=== PATIENT | male | born 1935 | race Caucasian/White ===

== ENCOUNTER 2019-10-15 13:13 | Outpatient (CLI) | payer MEDICARE, OTHER, SELFPAY ==
[2019-10-15 14:39] LABS: Prostate Specific Antigen 1.51 ng/mL (0-4)
[2019-10-15 14:52] LABS: Alanine Aminotransferase 20 U/L (0-41); Albumin Level 4.2 g/dL (3.5-5.2); Alkaline Phosphatase 63 IU/L (40-130); Anion Gap 15.8 (5-19); Aspartate Amino Transferase 21 U/L (0-40); Blood Urea Nitrogen 20 mg/dL (8-23); Calcium 9.8 mg/dL (8.5-10.5); Carbon Dioxide 25 mmol/L (22-29); Chloride 101 mmol/L (98-107); Globulin 3.3 g/dL (1.3-4.6); Glucose 125 mg/dL (65-115); Potassium 4.8 mmol/L (3.5-5.1); Sodium 137 mmol/L (136-145); Total Bilirubin 0.5 mg/dL (0.15-1.2); Total Protein 7.5 g/dL (6.6-8.7)
[2019-10-15 15:33] LABS: Testosterone Total 2.5 ng/dL (193-740)
== END 2019-10-15 13:14 | disposition home or self-care (01) ==
LOC: ONCMED 13:19
PROVIDERS: Family Provider Family Medicine; PCP Family Medicine; Visit Provider Internal Medicine Hematology & Oncology
DX: C61 Malignant neoplasm of prostate (principal); C79.51 Secondary malignant neoplasm of bone; Z92.3 Personal history of irradiation
CPT/HCPCS: 80053; 84153; 84403

== ENCOUNTER 2019-10-20 13:41 | Outpatient (CLI) | payer MEDICARE, OTHER, SELFPAY ==
--- NOTE | 2019-10-20 14:42 | ONC FU_ITS ---
Dr. 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 He had known adenocarcinoma of the prostate, [place] score 7 (4+3), initially stage III with invasion of seminal vesicles by direct extension. He underwent prostatectomy and lymphadenectomy at [facility] in March of 2004. His PSA was gradually rising; 0.38 in July of 2007, 2.03 in April of 2006, 6.11 in January of 2012, and 26.68 in July of 2013. Hormonal therapy was considered, but not initiated. The patient presented with significant lower back pain in the fall of 2012. His CT of the spine on 09/14/13 revealed destructive process of the L1 vertebral body with a lytic lesion of approximately 14 mm. He has no associated neurologic deficit. He was first seen by Dr. Miguel on 09/24/2013. PSA measured 44.4. An MRI of the lumbar spine on 09/25/2013 showed no evidence of central canal or neuroforaminal compromise. His bone scan revealed metastatic disease that included thoracic and lumbar spine, sacrum, left proximal humerus, right clavicle, right fifth rib and right temporal bone. A biopsy of the L1 vertebral body on 10/16/2013 confirmed prostatic adenocarcinoma. The patient began on treatment with Zoladex and Casodex. He had a good biochemical response. Restaging bone scan on 07/19/2014 showed improvement in the bone lesions. MRI of the L-spine on 07/21/2014 showed possible tumor extension in L1-L2 region but with no invasion into the thecal sac. He had exacerbation of his back pain, for which he received palliative radiation T10-L2 in January 2015. He continued treatment with the Zoladex and Casodex. In the Prolia every 6 months His other medical illnesses include hypertension, hyperlipidemia, type II diabetes, COPD, obstructive sleep apnea, and degenerative arthritis. He also has B12 deficiency. He had previously smoked 1-1/2 packs of cigarettes daily for 40 years. He quit smoking in 2009 Came for follow-up, denies any specific complaints, no nausea vomiting no fever no chills no new bony pains, occasionally hot flashes otherwise tolerating Zoladex/Casodex well Medications: Aspirin Low Dose 1 (81 mg) Tablet Oral daily, Citracal +D3 Tablet, chewable Oral daily, fentaNYL 1 Patch(es) (of 50 mcg/hr) Patch 72 Hr Transdermal q 72 hours, Fiber 1 (625 mg) Tablet Oral daily PRN, Gabapentin 1 Capsule (of 300 mg) Oral daily, Imdur 0.5 (30 mg) Tablet SR 24 HR Oral every am, Movantik 1 Tablet (of 25 mg) Oral daily, OxyCODONE HCl 1 Tablet (of 10 mg) Tablet Oral q 4 to 6 hours PRN, ProAir RespiClick Aerosol Powder, Breath Activated Inhalation, Tamsulosin HCl 1 Capsule (of 0.4 mg) Capsule Oral daily, Vitamin D3 1 (1000 Units) Capsule Oral daily Allergies: No Known Allergies. Review of Systems: Constitutional - Appetite is good and weight is stable. No fever, chills, hot flashes, or night sweats. Energy level is fair, ENMT - No sinus congestion/drainage. No mouth sores. No sore throat or difficulty swallowing, Hematologic/Lymphatic - Patient bruises easily, no abnormal bleeding, Respiratory - Shortness of breath with exertion. No cough. No pleuritic pain or hemoptysis, Cardiovascular - No angina pain. No palpitations, Gastrointestinal - No nausea or vomiting. No heartburn or acid reflux. No diarrhea or constipation. No blood in the stool or black stools, Genitourinary (M) - No dysuria or hematuria. Patient has urinary frequency. No urgency or incontinence, Musculoskeletal - Chronic back and knee pain, Integumentary - No new rashes or ulcerations, Neurologic - No headache or dizziness. No numbness/paresthesias or other focal neurologic symptoms, Psychiatric - No anxiety or depression. No insomnia. Vital Signs: Performed on Oct 20, 2019 14:12 Height - 68.00 in Weight - 247.8 lbs (LOW) BSA - 2.24 sq.m BMI - 37.68 (HIGH) Temperature - 97.6 F (LOW) Pulse - 82 /min Respiration - 18 /min BP - 143/78 mm(hg) (HIGH) O2 Sat - 95 % (LOW) Pain - 4 Fatigue - 6 Performance Status: 2 - Ambulatory/capable of all self-care, unable to perform any work activities. Up and about more than 50% of waking hours. (ECOG) Physical Examination: ENMT - No oral exudates, ulcers, masses, thrush or mucositis. Oropharynx clear. Tongue normal, Respiratory - Lungs are clear to auscultation without rhonchi or wheezing, Cardiovascular - Regular rate and rhythm of heart, Abdomen - Non-tender, non-distended, Good bowel sounds. No guarding or rebound tenderness. No pulsatile masses, Extremities - no edema. Lab/Imaging: Most recent lab results are not available for this patient. Impression: 1. Patient with Gail score 7 prostatic adenocarcinoma, stage III at initial diagnosis/prostatectomy in March 2004. He subsequently had progression to stage IV with biopsy proven metastatic involvement in the bone. 2. In December 2013 he began Zoladex together with Casodex 50 mg daily. He has a good biochemical response. Bone scan in July 2014 showed improvement. 3. He received palliative radiation treatment to T10- L2 in January of 2015. PSA shashank at 0.08- 0.09. His other medical illnesses include: 4. Hypertension. 5. Hyperlipidemia. 6. Type II diabetes. 7. COPD. 8. Obstructive sleep apnea. 9. Degenerative arthritis. Patient had a slight increase in the PSA level beginning in January 2016. The significance has been uncertain, as his clinical status has remained stable, and his subsequent PSA levels have stabilized. He also has had vitamin D deficiency, for which he is on replacement therapy, and has been receiving Prolia injections for maintenance of bone health. Overall, he appears to be doing pretty well with no evidence of progression of the prostate cancer. Plan: Discussed with patient regarding his labs CMP within normal limits PSA 1.51 compared to 3.29 on 07/15/2019 Clinically, patient is doing well, tolerating ADT with Casodex/Zoladex well but with expected side effects e.g. occasionally hot flashes. We'll proceed with next 3 monthly dose of Zoladex today and then patient return to clinic in 3 months with PSA. Signed By: Rhett Hennessy M.D. <<Signature on File>>
[2019-10-20] MEDS: denosumab 60 mg SDV SUBCUT (14:56)
[2019-10-20] MEDS: goserelin acetate 10.8 mg Implant SUBCUT (14:57)
== END 2019-10-20 13:42 | disposition home or self-care (01) ==
LOC: ONCMED 13:44
PROVIDERS: Family Provider Family Medicine; PCP Family Medicine; Visit Provider Internal Medicine Hematology & Oncology
DX: C61 Malignant neoplasm of prostate (principal); C79.51 Secondary malignant neoplasm of bone; I10 Essential (primary) hypertension; E78.5 Hyperlipidemia, unspecified; E11.9 Type 2 diabetes mellitus without complications; J44.9 Chronic obstructive pulmonary disease, unspecified; G47.33 Obstructive sleep apnea (adult) (pediatric); M19.90 Unspecified osteoarthritis, unspecified site; E53.8 Deficiency of other specified B group vitamins; Z79.818 Long term (current) use of other agents affecting estrogen receptors and estrogen levels; Z79.899 Other long term (current) drug therapy; Z79.82 Long term (current) use of aspirin; Z79.891 Long term (current) use of opiate analgesic; Z90.79 Acquired absence of other genital organ(s); Z92.3 Personal history of irradiation; Z87.891 Personal history of nicotine dependence
CPT/HCPCS: 96372; 96402; 99214; J0897; J9202

== ENCOUNTER 2020-01-11 15:05 | Outpatient (CLI) | payer MEDICARE, OTHER, SELFPAY ==
[2020-01-12 02:00] LABS: Prostate Specific Antigen 1.64 ng/mL (0-4)
== END 2020-01-11 15:06 | disposition home or self-care (01) ==
LOC: ONCMED 16:41
PROVIDERS: PCP Family Medicine; Visit Provider Internal Medicine Hematology & Oncology
DX: C61 Malignant neoplasm of prostate (principal); C79.51 Secondary malignant neoplasm of bone
CPT/HCPCS: 84153

== ENCOUNTER 2020-01-18 14:32 | Outpatient (CLI) | payer MEDICARE, OTHER, SELFPAY ==
[2020-01-18] MEDS: lidocaine 1% INJ 20 mL INJECTION (15:43)
[2020-01-18] MEDS: goserelin acetate 10.8 mg Implant IM (15:48)
--- NOTE | 2020-01-18 17:07 | ONC FU_ITS ---
Dr. 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 He had known adenocarcinoma of the prostate, Ha[place] score 7 (4+3), initially stage III with invasion of seminal vesicles by direct extension. He underwent prostatectomy and lymphadenectomy at [facility] in March of 2004. His PSA was gradually rising; 0.38 in July of 2007, 2.03 in April of 2006, 6.11 in January of 2012, and 26.68 in July of 2013. Hormonal therapy was considered, but not initiated. The patient presented with significant lower back pain in the fall of 2012. His CT of the spine on 09/14/13 revealed destructive process of the L1 vertebral body with a lytic lesion of approximately 14 mm. He has no associated neurologic deficit. He was first seen by Dr. Miguel on 09/24/2013. PSA measured 44.4. An MRI of the lumbar spine on 09/25/2013 showed no evidence of central canal or neuroforaminal compromise. His bone scan revealed metastatic disease that included thoracic and lumbar spine, sacrum, left proximal humerus, right clavicle, right fifth rib and right temporal bone. A biopsy of the L1 vertebral body on 10/16/2013 confirmed prostatic adenocarcinoma. The patient began on treatment with Zoladex and Casodex. He had a good biochemical response. Restaging bone scan on 07/19/2014 showed improvement in the bone lesions. MRI of the L-spine on 07/21/2014 showed possible tumor extension in L1-L2 region but with no invasion into the thecal sac. He had exacerbation of his back pain, for which he received palliative radiation T10-L2 in January 2015. He continued treatment with the Zoladex and Casodex. In the Prolia every 6 months His other medical illnesses include hypertension, hyperlipidemia, type II diabetes, COPD, obstructive sleep apnea, and degenerative arthritis. He also has B12 deficiency. He had previously smoked 1-1/2 packs of cigarettes daily for 40 years. He quit smoking in 2009 Came for follow-up, denies any specific complaints except generalized weakness and fatigue and occasionally hot flashes, no fever or chills, no nausea or vomiting, no diarrhea constipation, tolerating Zoladex/Casodex well Medications: Aspirin Low Dose 1 (81 mg) Tablet Oral daily, Benicar 1 Tablet (of 20 mg) Oral daily, Bicalutamide 1 Tablet (of 50 mg) Oral daily, Citracal +D3 Tablet, chewable Oral daily, fentaNYL 1 Patch(es) (of 50 mcg/hr) Patch 72 Hr Transdermal q 72 hours, Fiber 1 (625 mg) Tablet Oral daily PRN, Gabapentin 1 Capsule (of 300 mg) Oral daily, Imdur 0.5 (30 mg) Tablet SR 24 HR Oral every am, Movantik 1 Tablet (of 25 mg) Oral daily, Mucus Relief 1 Tablet (of 600 mg) Tablet SR 12 HR Oral daily, OxyCODONE HCl 1 Tablet (of 10 mg) Tablet Oral q 4 to 6 hours PRN, predniSONE 1 Tablet (of 10 mg) Oral daily, ProAir RespiClick Aerosol Powder, Breath Activated Inhalation, Tamsulosin HCl 1 Capsule (of 0.4 mg) Capsule Oral daily, Vitamin D3 1 (1000 Units) Capsule Oral daily, Zoladex Subcutaneous Allergies: No Known Allergies. Review of Systems: Constitutional - Appetite is good and weight is stable. No fever, chills, hot flashes, or night sweats. Energy level is fair, ENMT - No sinus congestion/drainage. No mouth sores. No sore throat or difficulty swallowing, Hematologic/Lymphatic - Patient bruises easily, no abnormal bleeding, Respiratory - Shortness of breath with exertion. No cough. No pleuritic pain or hemoptysis, Cardiovascular - No angina pain. No palpitations, Gastrointestinal - No nausea or vomiting. No heartburn or acid reflux. No diarrhea or constipation. No blood in the stool or black stools, Genitourinary (M) - No dysuria or hematuria. Patient has urinary frequency. No urgency or incontinence, Musculoskeletal - Chronic back and knee pain, Integumentary - No new rashes or ulcerations, Neurologic - No headache or dizziness. No numbness/paresthesias or other focal neurologic symptoms, Psychiatric - No anxiety or depression. No insomnia. Vital Signs: Performed on January 18, 2020 15:28 Height - 68.00 in Weight - 258.6 lbs (HIGH) BSA - 2.28 sq.m BMI - 39.32 (HIGH) Temperature - 97.5 F (LOW) Pulse - 89 /min Respiration - 19 /min BP - 188/100 mm(hg) (HIGH) O2 Sat - 92 % (LOW) Pain - 3 Performance Status: 2 - Ambulatory/capable of all self-care, unable to perform any work activities. Up and about more than 50% of waking hours. (ECOG) Physical Examination: ENMT - no mouth sores, Respiratory - Lungs are clear, Cardiovascular - Regular rate and rhythm of heart, Abdomen - soft, bowel sounds present. Lab/Imaging: Test performed on January 11, 2020 15:05 PSA 1.64 ng/mL Test performed on Oct 15, 2019 13:48 Sodium 137 mmol/L Testosterone, Total 2.5 ng/dL Potassium 4.8 mmol/L Chloride 101 mmol/L CO2 25 mmol/L Anion Gap 15.8 BUN 20 mg/dL Creatinine 0.9 mg/dL Cr Clearance (Est) 102.34 mL/min Glucose 125 mg/dL Calcium 9.8 mg/dL Protein, Total 7.5 g/dL Albumin 4.2 g/dL Globulin 3.3 g/dL Bilirubin, Total 0.5 mg/dL ALT (SGPT) 20 U/L AST (SGOT) 21 U/L Alkaline Phosphatase 63 IU/L Impression: 1. Patient with Gail score 7 prostatic adenocarcinoma, stage III at initial diagnosis/prostatectomy in March 2004. He subsequently had progression to stage IV with biopsy proven metastatic involvement in the bone. 2. In December 2013 he began Zoladex together with Casodex 50 mg daily. He has a good biochemical response. Bone scan in July 2014 showed improvement. 3. He received palliative radiation treatment to T10- L2 in January of 2015. PSA shashank at 0.08- 0.09. His other medical illnesses include: 4. Hypertension. 5. Hyperlipidemia. 6. Type II diabetes. 7. COPD. 8. Obstructive sleep apnea. 9. Degenerative arthritis. Patient had a slight increase in the PSA level beginning in January 2016. The significance has been uncertain, as his clinical status has remained stable, and his subsequent PSA levels have stabilized. He also has had vitamin D deficiency, for which he is on replacement therapy, and has been receiving Prolia injections for maintenance of bone health. Overall, he appears to be doing pretty well with no evidence of progression of the prostate cancer. Plan: Discussed with patient regarding his labs from 01/11/2020 which showed PSA 1.64 compared to 1.51 on 10/15/2019 and 3.29 on 07/15/2019 Clinically, patient is doing well, denies any signs symptom is just to of disease progression and follow-up PSA is stable, patient is tolerating Zoladex/Casodex well. We will proceed with next 3 monthly dose of Zoladex today and then return to clinic in 3 months with PSA in the meantime he'll continue daily Casodex and if PSA remained under control then will consider discontinue Casodex while continue with Zoladex along with and 6 monthly Prolia Signed By: Rhett Hennessy M.D. <<Signature on File>>
== END 2020-01-18 14:33 | disposition home or self-care (01) ==
PROVIDERS: PCP Family Medicine; Visit Provider Internal Medicine Hematology & Oncology
DX: C61 Malignant neoplasm of prostate (principal); C79.51 Secondary malignant neoplasm of bone; E55.9 Vitamin D deficiency, unspecified; I10 Essential (primary) hypertension; E78.5 Hyperlipidemia, unspecified; E11.9 Type 2 diabetes mellitus without complications; J44.9 Chronic obstructive pulmonary disease, unspecified; G47.30 Sleep apnea, unspecified; M19.90 Unspecified osteoarthritis, unspecified site; Z79.818 Long term (current) use of other agents affecting estrogen receptors and estrogen levels; Z79.899 Other long term (current) drug therapy
CPT/HCPCS: 96372; 96402; 99214; J2001; J9202

== ENCOUNTER 2020-03-16 10:25 | Inpatient (IN) | payer MEDICARE, OTHER, SELFPAY ==
[2020-03-16] VITALS (106 sets, daily range): BP systolic 99–146; BP diastolic 60–109; PULSE 90–145; RESP 12–32; TEMP 36.8–37.1; O2SAT 84–97; BMI 41.8
--- NOTE | 2020-03-16 10:28 | XRR_ITS ---
PROCEDURE INFORMATION: Exam: XR Chest, 1 View Exam date and time: 03/16/2020 11:06 AM Age: 84 years old Clinical indication: Dyspnea and other: Tachycardia; Kidney pain; Patient HX: Shortness of breath, tachycardia, kidney pain x 4 days. HX of prostate cancer TECHNIQUE: Imaging protocol: XR of the chest Views: 1 view. COMPARISON: CR Chest 2 views* [id number] 03/21/2018 4:00 PM FINDINGS: Lungs: Left lower lung consolidation and/or left pleural effusion. Right lung well aerated, partially obscured by artifact. Pleural space: As above. No pneumothorax. Heart/Mediastinum: Stable heart size. Bones/joints: No acute findings. XR/XR chest 1V portable [id number] IMPRESSION: Left lower lobe pneumonia and/or left pleural effusion.
--- NOTE | 2020-03-16 10:29 | ECG_ITS ---
[facility] Test Date: 2020-03-16 Pat Name: Robby Crowder Department: Room: Gender: Male [employer]: : 1935 Requested By: Estelle Wills Order Number: [id number] Lisa MD: Doris Mcclure M.D. Measurements Intervals [place] Rate: 146 P: NM: -1 QRS: -59 QRSD: 120 T: -2 QT: 279 QTc: 436 Interpretive Statements ATRIAL FIBRILLATION WITH RAPID VENTRICULAR RESPONSE LEFT ANTERIOR FASCICULAR BLOCK [QRS AXIS <= -45, QR IN I, RS IN II] No previous ECG available for comparison Electronically Signed On 03-16-2020 16:48:18 CDT by Doris Mcclure M.D. [email or web address]
[2020-03-16 10:44] LABS: Basophils # 0.1 10^3/uL (0.0-0.1); Basophils % 0.3 %; Hematocrit 49.2 % (42.0-52.0); Hemoglobin 15.2 g/dL (11.7-16.6); Lymphocytes # 2.3 10^3/uL (0.8-4.8); Lymphocytes % 8.7 %; Mean Corpuscular HGB Conc 30.9 g/dL (30.0-36.0); Mean Corpuscular Hemoglobin 27.1 pg (28.0-34.0); Mean Corpuscular Volume 87.9 fL (80-94); Mean Platelet Volume 9.8 fL (7.4-10.4); Monocytes # 2.6 10^3/uL (0.2-0.9); Monocytes % 9.7 %; Neutrophils # 21.52 10^3/uL (1.8-7.7); Neutrophils % 80.4 %; Nucleated Red Blood Cells % 0 %; Platelet Count 345 10^3/cmm (130-400); Red Cell Distribution Width 13.7 % (12.1-15.1); White Blood Count 26.8 10^3/uL (4.0-10.0)
--- NOTE | 2020-03-16 10:46 | CTR_ITS ---
PROCEDURE INFORMATION: Exam: CT Angiography Chest With Contrast Exam date and time: 03/16/2020 11:38 AM Age: 84 years old Clinical indication: Other: Tachycardia back and chest pain; Angina; Prior surgery; Surgery date: 6+ months; Surgery type: Appy; Additional info: Tachycardia, back and chest pain TECHNIQUE: Imaging protocol: Computed tomographic angiography of the chest with intravenous contrast. 3D rendering: MIP and/or 3D reconstructed images were created by the technologist. Radiation optimization: All CT scans at this facility use at least one of these dose optimization techniques: automated exposure control; mA and/or kV adjustment per patient size (includes targeted exams where dose is matched to clinical indication); or iterative reconstruction. Contrast material: OMNI 350; Contrast volume: 95 ml; Contrast route: INTRAVENOUS (IV); COMPARISON: CT chest w con* [id number] 09/30/2013 8:34 AM RADIATION DOSE METRICS: Total DLP (mGy-cm): 2270.8 FINDINGS: Pulmonary arteries: No pulmonary emboli. Aorta: No aortic aneurysm. No aortic dissection. Lungs: Partial left lung consolidation. Fluid/secretions in the left lower lung bronchi. Pleural space: Small to moderate partially loculated left pleural effusion. No right pleural effusion. Heart: Borderline cardiomegaly. No pericardial effusion. Lymph nodes: No significant adenopathy. Bones/joints: No acute findings. Soft tissues: Unremarkable. IMPRESSION: Partially loculated left pleural effusion, left lung pneumonia versus atelectasis. PROCEDURE INFORMATION: Exam: CT Abdomen And Pelvis With Contrast Exam date and time: 03/16/2020 11:38 AM Age: 84 years old Clinical indication: Other: Tachycardia back and chest pain; Angina; Prior surgery; Surgery date: 6+ months; Surgery type: Appy; Additional info: Tachycardia, back and chest pain TECHNIQUE: Imaging protocol: Computed tomography of the abdomen and pelvis with intravenous contrast. Radiation optimization: All CT scans at this facility use at least one of these dose optimization techniques: automated exposure control; mA and/or kV adjustment per patient size (includes targeted exams where dose is matched to clinical indication); or iterative reconstruction. Contrast material: OMNI 350; Contrast volume: 95 ml; Contrast route: INTRAVENOUS (IV); COMPARISON: CT chest w con* [id number] 09/30/2013 8:34 AM RADIATION DOSE METRICS: Total DLP (mGy-cm): 2270.8 FINDINGS: Liver: No mass. Gallbladder and bile ducts: Cholelithiasis. No biliary ductal dilatation. Pancreas: Normal. No ductal dilation. Spleen: Normal. No splenomegaly. Adrenals: Normal. No mass. Kidneys and ureters: Right renal calculi, no hydronephrosis of either kidney. 5 cm left renal cysts, no further evaluation needed. Stomach and bowel: No acute findings. No obstruction. No mucosal thickening. Appendix: No evidence of appendicitis. Intraperitoneal space: Unremarkable. No free air. No significant fluid collection. Vasculature: No abdominal aortic aneurysm. Lymph nodes: Pelvic lymph node dissection. No significant adenopathy. Bladder: Unremarkable as visualized. Reproductive: Prostatectomy Bones/joints: No acute findings. Lumbar degenerative disc disease. Soft tissues: Unremarkable. CT/CT angio chest w abd pel w con IMPRESSION: No acute findings. Radiation Dose CTDIVOL = (mGy): DLP = 2270.8~2270.8 (mGy-cm)
[2020-03-16 10:54] LABS: D Dimer 1.64 ug/mIFEU (0-0.59)
[2020-03-16] MEDS: sodium chloride 0.9% 500 ML 999 ML IV (10:55)
[2020-03-16 10:58] LABS: Alanine Aminotransferase 10 U/L (0-41); Albumin Level 3.9 g/dL (3.5-5.2); Alkaline Phosphatase 59 IU/L (40-130); Anion Gap 18.6 (5-19); Aspartate Amino Transferase 12 U/L (0-40); Blood Urea Nitrogen 14 mg/dL (8-23); Calcium 8.7 mg/dL (8.5-10.5); Carbon Dioxide 23 mmol/L (22-29); Chloride 95 mmol/L (98-107); Glucose 212 mg/dL (65-115); Osmolality Calculated 277 mOsm/kg (285-295); Potassium 4.6 mmol/L (3.5-5.1); Sodium 132 mmol/L (136-145); Total Bilirubin 1.5 mg/dL (0.15-1.2); Total Protein 7.9 g/dL (6.6-8.7)
--- NOTE | 2020-03-16 10:58 | PC.NURSE ---
Pt provided urinal for urine sample. Pt updated on wait for CT scan. Dr Santos gave VO to give Cardizem push and IVF bolus prior to starting Cardizem drip d/t pt HR decreased to 111
[2020-03-16 11:00] LABS: Troponin(5th) Baseline 23 ng/L (0-15)
--- NOTE | 2020-03-16 11:04 | PC.NURSE ---
XR performed at bedside
[2020-03-16 11:07] LABS: Lactate (Lactic Acid level) 1.6 mmol/L (0.5-2.2)
--- NOTE | 2020-03-16 11:20 | ED_ITS ---
HPI - SOB/Dyspnea General: Chief Complaint: Shortness of Breath/Dyspnea Stated Complaint: TACHYCARIDA KIDNEY PAIN SOB Time Seen by Provider: 03/16/20 10:28 History of Present Illness: HPI Narrative: This patient is an 84-year-old male presenting with chest pain, shortness of breath, back pain. He reports what he calls kidney pain for 2 weeks. He locates this in the left flank area. Over the past 4 days he said increasing shortness of breath and episodes of chest pain. Last night around midnight he developed pain under his left shoulder blade and in his left chest that caused him to not be able to take a deep breath. He was brought in by EMS today. During transport he was noted to have a heart rate in the 200s. He was given a dose of adenosine for a wide-complex tachycardia. After the adenosine his heart rate was in the 140s and appears to be a atrial fibrillation with a wide-complex. He denies any symptoms of his heart racing. He denies current chest pain. He is mostly complaining about his back pain. He has a history of prostate cancer in the early . He was treated with radiation and prostatectomy. Several years later he said it came back with a vengeance and caused bone cancer. He had radiation for that. He is not currently under any treatment for that. He denies any history of cardiac problems. He is never been told he had an irregular heartbeat. He has never been told that he had a blood clot. He has not had a fever. He denies any COVID exposures. MD elicited complaint: shortness of breath and chest pain Pertinent past history: other (Cancer) Onset (ago): week(s) (2) Timing: constant Severity: severe Associated symptoms: Reports chest pain; Deny abdominal pain, fever(s), nausea or vomiting Review of Systems General: Reports: 10 or more systems reviewed and unremarkable except in HPI and below Const: Reports: fatigue and malaise; Denies: fever(s) or chills Eyes: Denies: change in vision ENMT: Denies: odynophagia Card: Reports: chest pain; Denies: swelling of feet/ankles Resp: Reports: dyspnea and pain on inspiration; Denies: productive cough or non-productive cough GI: Denies: abdominal pain, nausea or vomiting : Reports: flank pain; Denies: difficulty urinating Musc: Reports: back pain; Denies: neck pain Skin/Breast: Denies: rash Neuro: Denies: headache(s), numbness in extremities or weakness in extremities Ko/Lymph: Denies: easy bruising or easy bleeding PFS ED PFSH: Medical History (Updated 03/17/20 @ 20:30 by Vince Young MD) COPD (chronic obstructive pulmonary disease) Degenerative arthritis Hyperlipidemia Hypertension Prostate cancer metastatic to bone Sleep apnea T2DM (type 2 diabetes mellitus) Physical Exam Const: COMMON NORMALS: patient oriented x3, no limitations and alert GENERAL APPEARANCE: cooperative and in distress NUTRITIONAL APPEARANCE: overweight HENMT: HEAD & SCALP: normal to inspection FACE & SINUS: normal facial exam Eye: GENERAL EYE: appearance normal, both eyes and all related structures Neck/C-Spine: COMMON NORMALS: supple, no meningeal signs and no JVD Chest: COMMONS NORMALS: normal inspection of the chest Resp: EFFORT & INSPECTION: Yes tachypneic, Yes respiratory distress and Yes uses accessory muscles AUSCULTATION: diminished lung sounds (Bilateral, left greater than right) Cardio: COMMON NORMALS: no JVD, regular rhythm and No murmurs present (Cardio) RATE: tachycardic RHYTHM: regular rhythm and abnormal rhythm irregularly irregular GI: COMMON NORMALS: Normal to inspection, nondistended, normoactive bowel sounds present and Soft to palpation INSPECTION: Yes normal to inspection AUSCULTATION: Yes normoactive bowel sounds PALPATION: Yes Soft to palpation and Yes Tenderness to palpation present (GI) (Diffusely, left greater than right) Back/Pelvis: COMMON NORMALS: thoracic and lumbar spine normal to inspection Extremity: COMMON NORMALS: normal to inspection Neuro: COMMON NORMALS: patient oriented x3, moves all extremities, no focal motor deficits and no sensory deficits noted SENSORIUM/ORIENTATION: Yes alert MENINGEAL SIGNS: Yes no meningeal signs Psych: COMMON NORMALS: mental status grossly normal, cooperative and normal affect Skin: COMMON NORMALS: no rashes or lesions noted and turgor normal GENERAL SKIN EXAM: no rashes or lesions noted and turgor normal Course ED course: Shortness of breath - noted to have a large pneumonia and pleural effusion on CXR/CT. Recommend admission for IV abx, control of heart rate. Patient convinced to stay by family. Vital Signs: Vital signs: Vital Signs Temperature 97.7 F 03/18/20 16:00 Pulse Rate 94 03/18/20 16:39 Respiratory Rate 18 03/18/20 16:39 Blood Pressure 109/92 03/18/20 16:00 Pulse Oximetry 94 03/18/20 16:39 MDM - SOB/Dyspnea Lab Data: Labs: Lab Results 03/16/20 03/16/20 03/16/20 Range/Units 09:59 09:59 09:59 WBC 26.8 H (4.0-10.0) 10^3/ uL RBC 5.60 H (4.1-5.3) 10^6/u L Hgb 15.2 (11.7-16.6) g/dL Hct 49.2 (42.0-52.0) % MCV 87.9 (80-94) fL MCH 27.1 L (28.0-34.0) pg MCHC 30.9 (30.0-36.0) g/dL RDW 13.7 (12.1-15.1) % Plt Count 345 (130-400) 10^3/c mm MPV 9.8 (7.4-10.4) fL Neut % (Auto) 80.4 % Lymph % (Auto) 8.7 % [place] % (Auto) 9.7 % Eos % (Auto) 0.0 % Baso % (Auto) 0.3 % Neut # (Auto) 21.52 H (1.8-7.7) 10^3/u L Lymph # (Auto) 2.3 (0.8-4.8) 10^3/u L [place] # (Auto) 2.6 H (0.2-0.9) 10^3/u L Eos # (Auto) 0.0 (0.0-0.8) 10^3/u L Baso # (Auto) 0.1 (0.0-0.1) 10^3/u L Nucleated RBC % (a uto) 0 % Nucleated RBCs # 0.0 /100WBC D-Dimer (0-0.59) ug/mIFE U Sodium 132 L (136-145) mmol/L Potassium 4.6 (3.5-5.1) mmol/L Chloride 95 L (98-107) mmol/L Carbon Dioxide 23 (22-29) mmol/L Anion Gap 18.6 (5-19) BUN 14 (8-23) mg/dL Creatinine 0.9 (0.7-1.2) mg/dL Glucose 212 H (65-115) mg/dL Calculated Osmolal ity 277 L (285-295) mOsm/k g Lactate (0.5-2.2) mmol/L Calcium 8.7 (8.5-10.5) mg/dL Total Bilirubin 1.5 H (0.15-1.2) mg/dL AST 12 (0-40) U/L ALT 10 (0-41) U/L Alkaline Phosphata se 59 (40-130) IU/L Troponin T Baselin e 23 H (0-15) ng/L Troponin T 120 [address] [place] (0-15) ng/L Delta Troponin T (0-10) ABS# Total Protein 7.9 (6.6-8.7) g/dL Albumin 3.9 (3.5-5.2) g/dL Globulin 4.0 (1.3-4.6) g/dL Procalcitonin (0-0.5) ng/mL 03/16/20 03/16/20 03/16/20 Range/Units 09:59 09:59 10:40 WBC (4.0-10.0) 10^3/ uL RBC (4.1-5.3) 10^6/u L Hgb (11.7-16.6) g/dL Hct (42.0-52.0) % MCV (80-94) fL MCH (28.0-34.0) pg MCHC (30.0-36.0) g/dL RDW (12.1-15.1) % Plt Count (130-400) 10^3/c mm MPV (7.4-10.4) fL Neut % (Auto) % Lymph % (Auto) % [place] % (Auto) % Eos % (Auto) % Baso % (Auto) % Neut # (Auto) (1.8-7.7) 10^3/u L Lymph # (Auto) (0.8-4.8) 10^3/u L [place] # (Auto) (0.2-0.9) 10^3/u L Eos # (Auto) (0.0-0.8) 10^3/u L Baso # (Auto) (0.0-0.1) 10^3/u L Nucleated RBC % (a uto) % Nucleated RBCs # /100WBC D-Dimer 1.64 H (0-0.59) ug/mIFE U Sodium (136-145) mmol/L Potassium (3.5-5.1) mmol/L Chloride (98-107) mmol/L Carbon Dioxide (22-29) mmol/L Anion Gap (5-19) BUN (8-23) mg/dL Creatinine (0.7-1.2) mg/dL Glucose (65-115) mg/dL Calculated Osmolal ity (285-295) mOsm/k g Lactate 1.6 (0.5-2.2) mmol/L Calcium (8.5-10.5) mg/dL Total Bilirubin (0.15-1.2) mg/dL AST (0-40) U/L ALT (0-41) U/L Alkaline Phosphata se (40-130) IU/L Troponin T Baselin e (0-15) ng/L Troponin T 120 Min [place] (0-15) ng/L Delta Troponin T (0-10) ABS# Total Protein (6.6-8.7) g/dL Albumin (3.5-5.2) g/dL Globulin (1.3-4.6) g/dL Procalcitonin 0.22 (0-0.5) ng/mL 03/16/20 Range/Units 12:25 WBC (4.0-10.0) 10^3/ uL RBC (4.1-5.3) 10^6/u L Hgb (11.7-16.6) g/dL Hct (42.0-52.0) % MCV (80-94) fL MCH (28.0-34.0) pg MCHC (30.0-36.0) g/dL RDW (12.1-15.1) % Plt Count (130-400) 10^3/c mm MPV (7.4-10.4) fL Neut % (Auto) % Lymph % (Auto) % [place] % (Auto) % Eos % (Auto) % Baso % (Auto) % Neut # (Auto) (1.8-7.7) 10^3/u L Lymph # (Auto) (0.8-4.8) 10^3/u L [place] # (Auto) (0.2-0.9) 10^3/u L Eos # (Auto) (0.0-0.8) 10^3/u L Baso # (Auto) (0.0-0.1) 10^3/u L Nucleated RBC % (a uto) % Nucleated RBCs # /100WBC D-Dimer (0-0.59) ug/mIFE U Sodium (136-145) mmol/L Potassium (3.5-5.1) mmol/L Chloride (98-107) mmol/L Carbon Dioxide (22-29) mmol/L Anion Gap (5-19) BUN (8-23) mg/dL Creatinine (0.7-1.2) mg/dL Glucose (65-115) mg/dL Calculated Osmolal ity (285-295) mOsm/k g Lactate (0.5-2.2) mmol/L Calcium (8.5-10.5) mg/dL Total Bilirubin (0.15-1.2) mg/dL AST (0-40) U/L ALT (0-41) U/L Alkaline Phosphata se (40-130) IU/L Troponin T Baselin e (0-15) ng/L Troponin T [address] [place] 24.30 H (0-15) ng/L Delta Troponin T 1.30 (0-10) ABS# Total Protein (6.6-8.7) g/dL Albumin (3.5-5.2) g/dL Globulin (1.3-4.6) g/dL Procalcitonin (0-0.5) ng/mL Discharge Plan Discharge Patient Disposition: Admitted As Inpatient Admit Provider: Ann Marie Altman Condition: Serious Discharge Date/Time: 03/16/20 16:05 Coding Level of Care Code ED Gameroom Technician for Panda Fwd Exam Comprehensive
--- NOTE | 2020-03-16 11:32 | PC.NURSE ---
Pt attempted to void, unable to at this time.
--- NOTE | 2020-03-16 11:51 | PC.NURSE ---
Pt to CT
[2020-03-16] MEDS: iohexol 350 mg/mL 100 mL Btl IV (12:07)
--- NOTE | 2020-03-16 12:23 | PC.NURSE ---
Pt states he is still unable to void, refusing catheter at this time.
--- NOTE | 2020-03-16 12:29 | ECG_ITS ---
Test Date: 2020-03-16 Pat Name: Robby Crowder Department: Room: Gender: Male [employer] Operator: : [id number] Requested By: Estelle Wills Order Number: [id number] Lisa MD: Doris Mcclure M.D. Measurements Intervals [place] Rate: 110 P: PA: -1 QRS: -59 QRSD: 123 T: -1 QT: 323 QTc: 437 Interpretive Statements ATRIAL FLUTTER/TACHYCARDIA WITH RAPID VENTRICULAR RESPONSE LEFT ANTERIOR FASCICULAR BLOCK [QRS AXIS <= -45, QR IN I, RS IN II] Compared to ECG 03/16/2020 10:40:43 Atrial fibrillation no longer present Electronically Signed On 03-16-2020 22:43:30 CDT by Doris Mcclure M.D. [id number] [email or web address]
[2020-03-16] MEDS: morphine 4 mg/mL SDV 1 mL IVP (12:53)
[2020-03-16] MEDS: ondansetron 2 mg/ML SDV 2 mL 4 MG IVP (12:53)
[2020-03-16] MEDS: azithromycin 500 MG in sodium chloride 0.9% 250 ML 250 MG IV (12:54)
[2020-03-16] MEDS: cefTRIAXone 1,000 MG in sodium chloride 0.9% (plus) 50 ML 100 MG IV (12:54)
[2020-03-16 14:26] LABS: Bilirubin Urine 1+ (NEGATIVE); Blood Urine 2+ (Negative); Glucose Urine UA Norm (Normal); Ketones Urine Negative (Negative); Leukocyte Esterase Urine Negative (Negative); Nitrate Urine Negative (Negative); Protein Urine Trace (Negative); Urine Appearance Clear (CLEAR); Urine Color Yellow (Yellow); Urobilinogen Urine 4 mg/dL (Negative); pH Urine 6.5 (5-7)
[2020-03-16 14:27] LABS: Add Urine Microscopic? YES
[2020-03-16 14:30] LABS: Add Urine Culture? No; Bacteria Urine TRACE; Mucus Urine TRACE; RBC Urine 0-4 /hpf (0-2); Squamous Epithelial Cell Urine 0-4 (0-5); WBC Urine 0-4 /hpf (0-5)
--- NOTE | 2020-03-16 15:08 | PC.NURSE ---
Pt swabbed for COVID. Specimen labeled and sent to lab.
[2020-03-16 16:12] LABS: Procalcitonin 0.22 ng/mL (0-0.5)
[2020-03-16] MEDS: guaiFENesin 600 mg Tablet 1200 MG PO (16:55)
[2020-03-16] MEDS: enoxaparin 40 mg/0.4 mL Syringe SUBCUT (16:55)
[2020-03-16] MEDS: oxyCODONE 5 mg IR Tab/Cap 10 MG PO (16:56)
[2020-03-16] MEDS: isosorbide mononitrate ER 30 mg Tablet 15 MG PO (16:59)
--- NOTE | 2020-03-16 16:59 | P.HP_ITS ---
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 He is being followed by oncology [facility] serial PSAs, last one from January 2020 was stable. He presented to ER today with c/o left sided chest pain which appears to be pleuritic in nature worsening with deep breathing. States that this pain has been ongoing for about 2 months at this point, however was dull aching type initially, over the course of the past week has progressed to 10/10 pain due to which he is currently unable to take a deep breath. Pain is mainly in the back, however wraps around the axilla to anterior location. Denies orthopnea. Has not noticed any fever but states has said he feels warm on several occassions. No h/o pneumonia known in the preceeding weeks or months. No known h/o CAD or CHF. No h/o cough or expectoration. He is on Prednisone 10mg daily, presumably for bony metastasis, no h/o opportunistic infections in the past. No h/o aspirations. ROS + for fatgue and lethargy. Exertional dyspnea+. On way to the ER, EMS noted him to have reported broad complex tachycardia with HR 200 (no current EKG from the event available for review), for which he received Adenosine. HR brought down to 140s, baseline rhythm appears to be a flutter. He is currently on cardizem infusion with HR at 100-120bpm. He has been afebrile. Diagnostics in the ER notable for CTA chest negative for PE, however with left sided well circumscribed pleural effusion with atelactasis +/- underlying consolidation. WBC count elevated at >20, predominantly neutrophilia. EKG with A flutter, 2 hr troponin without significant deltas. No past h/o TB, unknown PPD status. No recent travel. no known exposure to COVID 19. Denies other URI symptoms. Review of Systems General: Reports: 10 or more systems reviewed and unremarkable except in HPI and below Const: Denies: fever(s), chills or body aches Eyes: Denies: change in vision, blurry vision or photophobia ENMT: Denies: throat pain, enlarged tonsils, odynophagia or nasal congestion Card: Denies: chest pain, palpitations, irregular heart rhythm, edema, swelling of feet/ankles, lightheadedness, pre-syncope, dyspnea on exertion or orthopnea Resp: Denies: dyspnea, productive cough, non-productive cough, wheezing, stridor, pain on inspiration, change in phlegm color, hemoptysis or chest congestion GI: Denies: abdominal pain, nausea, vomiting, hematemesis, coffee ground emesis, dysphagia, heartburn, diarrhea, constipation, GI cramping, change in stool character, hematochezia or melena : Denies: flank pain, dysuria, urinary frequency, urinary urgency, urinary hesitancy or hematuria Musc: Denies: neck pain, back pain, extremity pain, joint swelling, joint warmth or deformity Neuro: Denies: headache(s), numbness in extremities, weakness in extremities, sensory changes, difficulty walking, frequent falls, dizziness, vertigo, behavioral changes, Slurred speech present or seizure-like activity Psych: Denies: anxiety, depression, suicidal ideation or homicidal ideation Endo: Denies: polyuria, polydipsia, tired all the time, cold intolerance or hot flashes Ko/Lymph: Denies: easy bruising or easy bleeding Medications/Allergies Home Medications Medication Instructions Recorded Confirmed Last Taken Type Prolia See Rx Instructions .ROUTE .COMPLEX 03/16/20 03/16/20 Unknown History Zoladex See Rx Instructions .ROUTE .COMPLEX 03/16/20 03/16/20 Unknown History albuterol sulfate 1 - 2 puff INHALATION Q4H PRN 03/16/20 03/16/20 Unknown History aspirin [Aspir-81] 81 mg PO DAILY 03/16/20 03/16/20 Unknown History bicalutamide 50 mg PO DAILY 03/16/20 03/16/20 Unknown History calcium polycarbophil [FiberCon] 625 mg PO PRN 03/16/20 03/16/20 Unknown History cholecalciferol (vitamin D3) 25 mcg PO DAILY 03/16/20 03/16/20 Unknown History [Vitamin D3] ergocalciferol (vitamin D2) 50,000 unit PO Q30D 03/16/20 03/16/20 03/02/20 History fentanyl 50 mcg TOPICAL Q72H 03/16/20 03/16/20 Unknown History gabapentin 100 mg PO BEDTIME 03/16/20 03/16/20 Unknown History guaifenesin [Mucinex] 1,200 mg PO Q12H 03/16/20 03/16/20 Unknown History isosorbide mononitrate See Rx Instructions .ROUTE .COMPLEX 03/16/20 03/16/20 Unknown History naloxegol [Movantik] 25 mg PO PRN 03/16/20 03/16/20 Unknown History olmesartan 20 mg PO DAILY 03/16/20 03/16/20 Unknown History oxycodone 10 mg PO Q4H PRN 03/16/20 03/16/20 03/16/20 History polyethylene glycol 3350 [Miralax] 17 g PO DAILY 03/16/20 03/16/20 Unknown History prednisone 10 mg PO DAILY 03/16/20 03/16/20 03/15/20 History tamsulosin 0.4 mg PO QAM 03/16/20 03/16/20 Unknown History Allergies Allergy/AdvReac Type Severity Reaction Status Date / Time No Known Allergies Allergy Verified 03/16/20 11:53 PFSH Acute PFSH: Medical History COPD (chronic obstructive pulmonary disease) Degenerative arthritis Hyperlipidemia Hypertension Prostate cancer metastatic to bone Sleep apnea T2DM (type 2 diabetes mellitus) Vitals/I&O/Wt Last Vital Signs Temp 98.4 F 03/16/20 10:26 Pulse 112 H 03/16/20 16:40 Resp 24 H 03/16/20 16:56 BP 99/67 03/16/20 16:40 Pulse Ox 93 03/16/20 16:56 03/16/20 03/16/20 03/16/20 06:59 14:59 22:59 Intake Total 800 / 800 Balance 800 / 800 Weight last 48 hrs Weight 117.48 kg Physical Exam Narrative: EXAM NARRATIVE: GEN: Awake, alert and oriented, in mild distress due to pain HEENT: on nasal canula at time of exam CVS: S1S2 N RS: Reduced air entry left infraaxillary and infrascapular areas Abd: Soft, nt/nd , bs+ BANKING MANAGER: no focal neuro deficits Data : 03/16/20 09:59 03/16/20 09:59 Micro: Microbiology 03/16/20 12:25 Blood Culture - Preliminary Blood SPECIMEN COLLECTED 03/16/20 12:30 Blood Culture - Preliminary Blood SPECIMEN COLLECTED A&P Assessment and plan (1) Sepsis: Status: Acute Qualifiers: Sepsis type: sepsis due to unspecified organism Sepsis acute organ dysfunction status: without acute organ dysfunction Qualified Code(s): A41.9 - Sepsis, unspecified organism (2) Pleural effusion: Status: Acute (3) Atrial fibrillation and flutter: Status: Acute (4) Sleep apnea: Status: Acute Qualifiers: Sleep apnea type: unspecified type Qualified Code(s): G47.30 - Sleep apnea, unspecified (5) COPD (chronic obstructive pulmonary disease): Status: Acute Qualifiers: COPD type: unspecified COPD Qualified Code(s): J44.9 - Chronic obstr uctive pulmonary disease, unspecified (6) T2DM (type 2 diabetes mellitus): Status: Acute Qualifiers: Diabetes mellitus exterminator termite insulin use: without exterminator termite use Diabetes mellitus complication status: without complication Qualified Code(s): E11.9 - Type 2 diabetes mellitus without complications (7) Prostate cancer metastatic to bone: Status: Acute Additional A&P Information Admit to ICU 1. Sepsis: meets criteria with tachycardia, tachypnea , leukocytosis 2. Acute hypoxic respiratory failure, likely secondary to pleural effusion, which may be parapneumonic 3. Pleural effusion left side, unclear etiology, may be parapneumonic effusion Elevated WBC, subjective fevers, possible underlying consolidation start Zosyn empirically check urine bacterial antigen and legionella antigen MRSA nasal PCR screen Pulmonology consult to evalute for diagnostic thoracnetesis Once obtained, pleural fluid studies incl cx and gram stain Less likely to be opprotunistic fungal infection given low dose steroids and no gross prolonged neutropenia or leukopenia on labs, however will exclude given pleural based lesions by obtaining fungal cx and gram stain additionally from fluid. Serum galactomannan and BDG antigen with am labs. COVID 19 testing- [facility] PCR for the same 4. Atrial flutter, new per history, may be 2/2 underlying pneumonia vs effusion serial 2 hr troponin without significant delta echocardiogram Currently on cardizem infusion hold off on a/c decisions for now as possible thoracentesis 5. HTN: hold Imdur for now, BP currently SBP 100s secondary to cardizem 6. prostate ca with mets to bone, pleural fluid cytology Full code Dvt ppx: lovenox Attestations Medical Necessity Statement*: Anticipate >2midnight admission for evalution of new afib, sepsis and effusion Coding Level of Care Code Acute Records Management Analyst for Chg Fwd Diagnoses Sepsis A41.9 Sepsis type: sepsis due to unspecified organism Sepsis acute organ dysfunction status: without acute organ dysfunction Pleural effusion J90 Atrial fibrillation and flutter I48.91; I48.92 Sleep apnea G47.30 Sleep apnea type: unspecified type COPD (chronic obstructive pulmonary disease) J44.9 COPD type: unspecified COPD T2DM (type 2 diabetes mellitus) E11.9 Diabetes mellitus exterminator termite insulin use: without exterminator termite use Diabetes mellitus complication status: without complication Prostate cancer metastatic to bone C61; C79.51
[2020-03-16 17:43] LABS: Lactic Sepsis W/Reflex 2.4 mmol/L (0.5-2.2)
[2020-03-16 17:44] LABS: Troponin 5 6HR 20.98 ng/L (0-15)
[2020-03-16 17:52] LABS: Troponin 5 6HR Delta -2.02 ng/L (0-12)
[2020-03-16] MEDS: piperacillin-tazobactam 3.375 GM in sodium chloride 0.9% (plus) 50 ML IV (20:11)
[2020-03-16] MEDS: gabapentin 100 mg Capsule PO (20:11)
[2020-03-16 20:26] LABS: Glucose Point of Care 135 mg/dL (70-110)
[2020-03-16] MEDS: morphine 4 mg/mL SDV 1 mL 2 MG IVP (20:55)
[2020-03-17] VITALS (116 sets, daily range): BP systolic 89–141; BP diastolic 55–103; PULSE 75–125; RESP 13–42; TEMP 36.8–37.1; O2SAT 92–98
[2020-03-17] MEDS: piperacillin-tazobactam 3.375 GM in sodium chloride 0.9% (plus) 50 ML IV ×3 (04:30→19:46)
[2020-03-17 05:10] LABS: Basophils # 0.1 10^3/uL (0.0-0.1); Basophils % 0.2 %; Eosinophils % 0.1 %; Hematocrit 44.4 % (42.0-52.0); Hemoglobin 13.6 g/dL (11.7-16.6); Lymphocytes # 1.1 10^3/uL (0.8-4.8); Mean Corpuscular HGB Conc 30.6 g/dL (30.0-36.0); Mean Corpuscular Hemoglobin 27.2 pg (28.0-34.0); Mean Corpuscular Volume 88.8 fL (80-94); Mean Platelet Volume 9.5 fL (7.4-10.4); Monocytes # 2.6 10^3/uL (0.2-0.9); Neutrophils % 85.6 %; Nucleated Red Blood Cells % 0 %; Platelet Count 301 10^3/cmm (130-400); Red Cell Distribution Width 14.1 % (12.1-15.1); White Blood Count 28.6 10^3/uL (4.0-10.0)
[2020-03-17 05:33] LABS: Alanine Aminotransferase 7 U/L (0-41); Albumin Level 3.1 g/dL (3.5-5.2); Alkaline Phosphatase 52 IU/L (40-130); Anion Gap 13.6 (5-19); Aspartate Amino Transferase 12 U/L (0-40); Blood Urea Nitrogen 24 mg/dL (8-23); Calcium 8.2 mg/dL (8.5-10.5); Carbon Dioxide 26 mmol/L (22-29); Chloride 97 mmol/L (98-107); Globulin 3.3 g/dL (1.3-4.6); Glucose 128 mg/dL (65-115); Osmolality Calculated 272 mOsm/kg (285-295); Potassium 4.6 mmol/L (3.5-5.1); Sodium 132 mmol/L (136-145); Total Bilirubin 1.3 mg/dL (0.15-1.2); Total Protein 6.4 g/dL (6.6-8.7)
[2020-03-17 08:33] LABS: Glucose Point of Care 132 mg/dL (70-110)
[2020-03-17] MEDS: fentaNYL 50 mcg Patch 1 PATCH TRANSDERMA (10:17)
[2020-03-17] MEDS: predniSONE 10 mg Tablet PO (10:18)
[2020-03-17] MEDS: aspirin 81 mg EC Tablet PO (10:18)
[2020-03-17] MEDS: azithromycin 250 mg Tablet 500 MG PO (10:18)
[2020-03-17] MEDS: tamsulosin 0.4 mg Capsule PO (10:20)
--- NOTE | 2020-03-17 11:34 | PM.PN ---
Subjective Subjective: Interval history: Continues to be in pain this morning. Last night received morphine 2mg and noted to be confused afterwards, improved this morning. Also had rabago placed yesterday, which bothered him and was subsequently removed. Medications: Reviewed: Yes Vitals/I&O/Wt Last Vital Signs Temp 98.2 F 03/17/20 03:55 Pulse 79 03/17/20 07:50 Resp 16 03/17/20 07:50 BP 139/94 03/17/20 05:20 Pulse Ox 96 03/17/20 07:50 03/16/20 03/17/20 03/17/20 22:59 06:59 14:59 Intake Total 0 / 800 97.5 / 897.5 Output Total 70 / 70 250 / 320 Balance -70 / 730 -152.5 / 577.5 Weight last 48 hrs Weight 118.161 kg Weight 117.48 kg Physical Exam Narrative: EXAM NARRATIVE: GEN: Awake, alert and oriented, no acute distress CVS: S1S2 N RS: Reduced air entry left side Abd: Soft, nt/nd , bs+ HOSPITALIST PROGRAM DIRECTOR: no focal neuro deficits Urinary Catheter Management^: Rabago: Cath Placed During This Visit: yes Reason for Continuing Indwelling Catheter: Accurate Measurement of Urinary Output in Critically Ill Patients Urinary Catheter Date of Insertion: 03/16/20 Urinary Catheter Time of Insertion: 19:15 Data : 03/17/20 04:45 03/17/20 04:45 Micro: Microbiology 03/16/20 20:00 Bacterial Antigens - Final Urine,Voided 03/16/20 12:25 Blood Culture - Preliminary Blood SPECIMEN COLLECTED 03/16/20 12:30 Blood Culture - Preliminary Blood SPECIMEN COLLECTED A&P Assessment and plan (1) Sepsis: Status: Acute Qualifiers: Sepsis type: sepsis due to unspecified organism Sepsis acute organ dysfunction status: without acute organ dysfunction Qualified Code(s): A41.9 - Sepsis, unspecified organism (2) Pleural effusion: Status: Acute (3) Atrial fibrillation and flutter: Status: Acute (4) Sleep apnea: Status: Acute Qualifiers: Sleep apnea type: unspecified type Qualified Code(s): G47.30 - Sleep apnea, unspecified (5) COPD (chronic obstructive pulmonary disease): Status: Acute Qualifiers: COPD type: unspecified COPD Qualified Code(s): J44.9 - Chronic obstructive pulmonary disease, unspecified (6) T2DM (type 2 diabetes mellitus): Status: Acute Qualifiers: Diabetes mellitus [facility] insulin use: without terminal press operator use Diabetes mellitus complication status: without complication Qualified Code(s): E11.9 - Type 2 diabetes mellitus without complications (7) Prostate cancer metastatic to bone: Status: Acute Additional A&P Information Admit to ICU 1. Sepsis: meets criteria with tachycardia, tachypnea , leukocytosis 2. Acute hypoxic respiratory failure, likely secondary to loculated left pleural effusion, which may be parapneumonic 3. Partially loculated pleural effusion left side, unclear etiology, may be parapneumonic effusion Elevated WBC, subjective fevers, possible underlying consolidation Continue Zosyn and azithromycin empirically. WBC trending up slightly to 28 today,on room air this morning , continues to have significant pleuritic pain. Hold off on adding iv vancomycin until gram stain and cx can be obtained later today from thoracentesis. If clinically deteriorates, will add prior. MRSA PCR screen in the interim Renal function stable but poor urine output ~200cc, start gentle IVF at 50 cc/hr for now check urine bacterial antigen and legionella antigen MRSA nasal PCR screen Sputum cx and gram stain Pulmonology consult with Dr. Robles to evaluate for thoracentesis Once obtained, pleural fluid studies incl cx and gram stain Less likely to be opprotunistic fungal infection given low dose steroids and no gross prolonged neutropenia or leukopenia on labs, however will exclude given pleural based lesions by obtaining fungal cx and gram stain additionally from fluid. Serum galactomannan and BDG antigen with am labs. COVID 19 testing- PODIATRIST PCR for the same , sent this am, results pending 4. Atrial flutter, new per history, may be 2/2 underlying pneumonia vs effusion serial troponin without significant delta echocardiogram ordered, pending Currently on cardizem infusion, will start overlap with po medications once procdures are done hold off on a/c decisions for now as possible thoracentesis 5. HTN: hold Imdur for now, BP currently well controlled 6. prostate ca with mets to bone, pleural fluid cytology Continue daily casodex Full code Dvt ppx: lovenox Attestations Medical Necessity Statement*: optimization of respiratory status, control of A fib, diagnostic evlautaion of loculated left pleural effusion Coding Level of Care Code Acute Bid Manager for Chg Fwd Diagnoses Sepsis A41.9 Sepsis type: sepsis due to unspecified organism Sepsis acute organ dysfunction status: without acute organ dysfunction Pleural effusion J90 Atrial fibrillation and flutter I48.91; I48.92 Sleep apnea G47.30 Sleep apnea type: unspecified type COPD (chronic obstructive pulmonary disease) J44.9 COPD type: unspecified COPD T2DM (type 2 diabetes mellitus) E11.9 Diabetes mellitus [facility] insulin use: without terminal press operator use Diabetes mellitus complication status: without complication Prostate cancer metastatic to bone C61; C79.51
[2020-03-17 12:05] LABS: Estmated Average Glucose 126
[2020-03-17] MEDS: sodium chloride 0.9% 1,000 ML 50 ML IV (12:14)
[2020-03-17] MEDS: oxyCODONE 5 mg IR Tab/Cap 10 MG PO ×3 (12:16→20:06)
[2020-03-17] MEDS: FUROsemide 10 mg/mL SDV 2mL 20 MG IVP (13:47)
[2020-03-17 14:00] LABS: Lactate Dehydrogenase 274 U/L (135-225)
--- NOTE | 2020-03-17 15:09 | ECG_ITS ---
[facility] Test Date: 2020-03-17 Pat Name: Robby Crowder Department: Room: [facility] Gender: Male Match Marker: : 1935 Requested By: Ann Marie Altman Order Number: [id number] Lisa MD: Stuart Carmichael M.D. Measurements Intervals [place] Rate: 125 P: MA: -1 QRS: -68 QRSD: 133 T: 11 QT: 295 QTc: 426 Interpretive Statements Possible atrial flutter with rapid ventricular rate. INTRAVENTRICULAR CONDUCTION DELAY [130+ ms QRS DURATION] Compared to ECG 03/16/2020 12:43:06 Intraventricular conduction delay now present Atrial flutter no longer present Left anterior fascicular block no longer present Electronically Signed On 03-18-2020 1:22:10 CDT by Stuart Carmichael M.D. [email or web address]
[2020-03-17] MEDS: guaiFENesin 600 mg Tablet 1200 MG PO (16:38)
[2020-03-17] MEDS: fentaNYL 50 mcg/mL INJ 2mL 25 MCG IVP (17:10)
--- NOTE | 2020-03-17 17:54 | XRR_ITS ---
PROCEDURE INFORMATION: Exam: XR Chest, 1 View Exam date and time: 03/17/2020 6:51 PM Age: 84 years old Clinical indication: Device placement; Other: Left chest tube; Additional info: Post chest tube placement TECHNIQUE: Imaging protocol: XR of the chest Views: 1 view. COMPARISON: CR XR chest 1V portable [id number] 03/16/2020 10:56 AM FINDINGS: Lungs: Visualized portions of the right lung are clear. Pleural space: There is moderate left pleural effusion. There is a new left pleural drain seen overlying the left chest. Left pleural effusion does not appear significantly changed from yesterday's examination. No pneumothorax is identified. Heart/Mediastinum: Unremarkable. No cardiomegaly. Bones/joints: Unremarkable. XR/XR chest 1V portable [id number] IMPRESSION: Moderate left pleural effusion
[2020-03-17 19:25] LABS: Hematocrit 46.1 % (42.0-52.0)
--- NOTE | 2020-03-17 19:45 | PC.NURSE ---
afternoon dose of Zosyn did not complete do to poor IV access at that time
[2020-03-17 19:52] LABS: Body Fluid Polynuclear #Cells 9.383 10^3/uL; Body Fluid WBC 10280 /uL; Monocytes # Body Fluid 0.897 10^3/uL; RBC, Body Fluid 2 10^3/uL (0-0)
--- NOTE | 2020-03-17 19:56 | PM.ACPR ---
Procedure/Consent Time out: Time Out Performed: Yes Consent: Consent for Procedure: Consent obtained from patient, Risks & Benefits reviewed and Agrees to proceed with procedure Procedure Narrative: A time out was performed , the appropriate side was confirmed with ultrasound and marked. My hands were washed immediately prior to the procedure. I wore a surgical cap, mask , sterile gown and sterile gloves throughout the procedure. The patient was prepped and draped in a sterile manner using chlorhexidine scrub after the patient was positioned in the usual fashion. A total of 15 ml of 1% Lidocaine was used to anesthetize the skin down to the rib and along the proposed insertion path for the tube. An 18 gauge needle with syringe attached was inserted into the pleural space with aspiration of air / fluid to verify placement. A guide wire was advanced into the pleural space and the needle was withdrawn.A 0.5cm incision was made through the skin and the subcutaneous tissues were dilated. The 14Fr Arrow pigtail chest drain was inserted into the pleural space. The drain was then immediately connected to a Pleur-evac.Adequate placement confirmed by tidaling and fluid drainage. The chest tube was sutured to the skin at the insertion site, and connected securely with tape to a pleurovac. No immediate complications were noted. Estimated blood loss is < 10 ml. Acute Procedures Chest Tube^: Chest Tube 1: Chest tube location: Mid-Axillary Chest (Left) Size of tube: 14 Chest tube procedure: Yes betadine prep and sterile drapes applied Tube sutured to skin: Yes Sterile dressing applied: Yes Anesthesia: 1% Lidocaine Volume anesthetic (ml): 15 Tube Drainage: fluid (straw colored) Amount of initial drainage (ml): 500 Post procedure CXR?: Yes Patient tolerated procedure: Yes Complications: other (likely loculated effusion - only 500 cc drained) Epistaxis Control: Time out performed: Yes
[2020-03-17] MEDS: gabapentin 100 mg Capsule PO (20:05)
--- NOTE | 2020-03-17 20:15 | P.CONIM_ITS ---
Providers/Reason For Consult Consulting Physican/Specialty*: Dr. 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 Diagnostics in the ER notable for CTA chest negative for PE, however with left sided well circumscribed pleural effusion with atelactasis +/- underlying consolidation. Pulmonary consult called for Possible throcentesis/ chest tube to rule out empyema/malignancy for left pleural effusion Review of Systems General: Reports: 10 or more systems reviewed and unremarkable except in HPI and below Meds/Allergies Home Medications and Allergies Home Medications Medication Instructions Recorded Confirmed Last Taken Type Prolia See Rx Instructions .ROUTE .COMPLEX 03/16/20 03/16/20 Unknown History Zoladex See Rx Instructions .ROUTE .COMPLEX 03/16/20 03/16/20 Unknown History albuterol sulfate 1 - 2 puff INHALATION Q4H PRN 03/16/20 03/16/20 Unknown History aspirin [Aspir-81] 81 mg PO DAILY 03/16/20 03/16/20 Unknown History bicalutamide 50 mg PO DAILY 03/16/20 03/16/20 Unknown History calcium polycarbophil [FiberCon] 625 mg PO PRN 03/16/20 03/16/20 Unknown History cholecalciferol (vitamin D3) 25 mcg PO DAILY 03/16/20 03/16/20 Unknown History [Vitamin D3] ergocalciferol (vitamin D2) 50,000 unit PO Q30D 03/16/20 03/16/20 03/02/20 History fentanyl 50 mcg TOPICAL Q72H 03/16/20 03/16/20 Unknown History gabapentin 100 mg PO BEDTIME 03/16/20 03/16/20 Unknown History guaifenesin [Mucinex] 1,200 mg PO Q12H 03/16/20 03/16/20 Unknown History isosorbide mononitrate See Rx Instructions .ROUTE .COMPLEX 03/16/20 03/16/20 Unknown History naloxegol [Movantik] 25 mg PO PRN 03/16/20 03/16/20 Unknown History olmesartan 20 mg PO DAILY 03/16/20 03/16/20 Unknown History oxycodone 10 mg PO Q4H PRN 03/16/20 03/16/20 03/16/20 History polyethylene glycol 3350 [Miralax] 17 g PO DAILY 03/16/20 03/16/20 Unknown History prednisone 10 mg PO DAILY 03/16/20 03/16/20 03/15/20 History tamsulosin 0.4 mg PO QAM 03/16/20 03/16/20 Unknown History Allergies Allergy/AdvReac Type Severity Reaction Status Date / Time No Known Allergies Allergy Verified 03/16/20 11:53 Current Medications Current Medications Generic Name Dose Route Start Last Admin Trade Name Freq PRN Reason Stop Dose Admin Aspirin 81 mg 03/17/20 09:00 03/17/20 10:18 Aspirin Ec PO 81 mg DAILY LAISHA Administration Azithromycin 500 mg 03/17/20 09:00 03/17/20 10:18 Zithromax PO 500 mg DAILY LAISHA Administration Protocol Bicalutamide 50 mg 03/17/20 09:00 03/17/20 10:18 Casodex PO 50 mg DAILY LAISHA Administration Enoxaparin Sodium 40 mg 03/16/20 15:30 03/16/20 16:55 Lovenox SUBCUT 40 mg Q24H LAISHA Administration Fentanyl 1 patch 03/17/20 08:00 03/17/20 10:17 Duragesic 50 Mcg Patch TRANSDERMA 1 patch Q72H LAISHA Administration Gabapentin 100 mg 03/16/20 21:00 03/17/20 20:05 Neurontin PO 100 mg BEDTIME LAISHA Administration Guaifenesin 1,200 mg 03/16/20 14:45 03/17/20 16:38 Mucinex PO 1,200 mg Q12H LAISHA Administration Diltiazem HCl 125 mg/ Sodium 125 mls @ 0 mls/hr 03/16/20 10:45 03/17/20 19:59 Chloride IV 5 mg/hr .Q0M LAISHA 5 mls/hr Administration Protocol Per Protocol Piperacillin Sod/Tazobactam 50 mls @ 12.5 mls/hr 03/16/20 19:30 03/17/20 19:46 Sod 3.375 gm/ Sodium Chloride IV 12.5 mls/hr Q8H LAISHA Administration Protocol As Directed Vancomycin HCl 1,500 mg/ 250 mls @ 166.667 mls/hr 03/17/20 20:00 03/17/20 20:00 Sodium Chloride IV 166.7 mls/hr Q12H LAISHA Administration Protocol Morphine Sulfate 2 mg 03/16/20 14:38 03/16/20 20:55 Morphine IVP 2 mg Q4H PRN Administration SEVERE PAIN Oxycodone HCl 10 mg 03/16/20 14:41 03/17/20 20:06 Oxycodone Ir PO 10 mg Q4H PRN Administration Pain Polyethylene Glycol 17 gm 03/17/20 09:00 03/17/20 10:19 Miralax PO Not Given DAILY LAISHA Prednisone 10 mg 03/17/20 09:00 03/17/20 10:18 Prednisone PO 10 mg DAILY LAISHA Administration Tamsulosin HCl 0.4 mg 03/17/20 06:00 03/17/20 10:20 Flomax PO 0.4 mg QAM LAISHA Administration PFSH Acute PFSH: Medical History COPD (chronic obstructive pulmonary disease) Degenerative arthritis Hyperlipidemia Hypertension Prostate cancer metastatic to bone Sleep apnea T2DM (type 2 diabetes mellitus) Vitals/I&O/Wt Last Vital Signs Temp 98.8 F 03/17/20 11:57 Pulse 123 H 03/17/20 16:00 Resp 24 H 03/17/20 17:10 BP 89/66 03/17/20 16:00 Pulse Ox 93 03/17/20 16:00 03/17/20 03/17/20 03/17/20 06:59 14:59 22:59 Intake Total 97.5 / 897.5 170 / 170 222.75 / 392.75 Output Total 250 / 320 250 / 250 640 / 890 Balance -152.5 / 577.5 -80 / -80 -417.25 / -497.25 Weight last 48 hrs Weight 260 lb 8 oz Weight 259 lb Physical Exam Narrative: EXAM NARRATIVE: GEN: Awake, alert and oriented, no acute distress NECK: Supple CVS: S1S2 N RS: Reduced air entry left side Abd: Soft, nt/nd , bs+ SECURITY SME: no focal neuro deficits Urinary Catheter Management^: Gomez: Cath Placed During This Visit: yes Reason for Continuing Indwelling Catheter: Accurate Measurement of Urinary Output in Critically Ill Patients Urinary Catheter Date of Insertion: 03/16/20 Urinary Catheter Time of Insertion: 19:15 Data Labs: Other Labs: Laboratory Results WBC 28.6 10^3/uL (4.0 -10.0) H 03/17/20 04:45 RBC 5.00 10^6/uL (4.1 -5.3) 03/17/20 04:45 Hgb 13.6 g/dL (11.7-1 6.6) 03/17/20 04:45 Hct 46.1 % (42.0-52.0 ) 03/17/20 19:04 MCV 88.8 fL (80-94) 03/17/20 04:45 MCH 27.2 pg (28.0-34. 0) L 03/17/20 04:45 MCHC 30.6 g/dL (30.0-3 6.0) 03/17/20 04:45 RDW 14.1 % (12.1-15.1 ) 03/17/20 04:45 Plt Count 301 10^3/cmm (130 -400) 03/17/20 04:45 MPV 9.5 fL (7.4-10.4) 03/17/20 04:45 Neut % (Auto) 85.6 % 03/17/20 04:45 Lymph % (Auto) 4.0 % 03/17/20 04:45 [place] % (Auto) 9.0 % 03/17/20 04:45 Eos % (Auto) 0.1 % 03/17/20 04:45 Baso % (Auto) 0.2 % 03/17/20 04:45 Neut # (Auto) 24.50 10^3/uL (1. 8-7.7) H 03/17/20 04:45 Lymph # (Auto) 1.1 10^3/uL (0.8- 4.8) 03/17/20 04:45 [place] # (Auto) 2.6 10^3/uL (0.2- 0.9) H 03/17/20 04:45 Eos # (Auto) 0.0 10^3/uL (0.0- 0.8) 03/17/20 04:45 Baso # (Auto) 0.1 10^3/uL (0.0- 0.1) 03/17/20 04:45 Nucleated RBC % (a uto) 0 % 03/17/20 04:45 Nucleated RBCs # 0.0 /100WBC 03/17/20 04:45 D-Dimer 1.64 ug/mIFEU (0- 0.59) H 03/16/20 09:59 Sodium 132 mmol/L (136-1 45) L 03/17/20 04:45 Potassium 4.6 mmol/L (3.5-5 .1) 03/17/20 04:45 Chloride 97 mmol/L (98-107 ) L 03/17/20 04:45 Carbon Dioxide 26 mmol/L (22-29) 03/17/20 04:45 Anion Gap 13.6 (5-19) 03/17/20 04:45 BUN 24 mg/dL (8-23) H 03/17/20 04:45 Creatinine 1.0 mg/dL (0.7-1. 2) 03/17/20 04:45 Glucose 128 mg/dL (65-115 ) H 03/17/20 04:45 POC Glucose 132 mg/dL (70-110 ) 03/17/20 08:21 Estimat Average Gl ucose 126 03/17/20 04:45 Hemoglobin A1c 6.0 % (4.0-6.0) 03/17/20 04:45 Calculated Osmolal ity 272 mOsm/kg (285- 295) L 03/17/20 04:45 Lactic Acid 2.4 mmol/L (0.5-2 .2) H 03/16/20 17:23 Lactate 1.6 mmol/L (0.5-2 .2) 03/16/20 10:40 Calcium 8.2 mg/dL (8.5-10 .5) L 03/17/20 04:45 Total Bilirubin 1.3 mg/dL (0.15-1 .2) H 03/17/20 04:45 AST 12 U/L (0-40) 03/17/20 04:45 ALT 7 U/L (0-41) 03/17/20 04:45 Alkaline Phosphata se 52 IU/L (40-130) 03/17/20 04:45 Lactate Dehydrogen ase 274 U/L (135-225) H 03/17/20 04:45 Troponin T Baselin e 23 ng/L (0-15) H 03/16/20 09:59 Troponin T 120 Min noe 24.30 ng/L (0-15) H 03/16/20 12:25 Delta Troponin T 1.30 ABS# (0-10) 03/16/20 12:25 Troponin T Hi Sens 6Hr 20.98 ng/L (0-15) H 03/16/20 17:23 Troponin T Hi Sens 6Hr Delta -2.02 ng/L (0-12) L 03/16/20 17:23 Total Protein 6.4 g/dL (6.6-8.7 ) L 03/17/20 04:45 Albumin 3.1 g/dL (3.5-5.2 ) L 03/17/20 04:45 Globulin 3.3 g/dL (1.3-4.6 ) 03/17/20 04:45 Procalcitonin 0.22 ng/mL (0-0.5 ) 03/16/20 09:59 Urine Color Yellow (Yellow) 03/16/20 14:00 Urine Appearance Clear (CLEAR) 03/16/20 14:00 Urine pH 6.5 (5-7) 03/16/20 14:00 Ur Specific Gravit y 1.000 (1.005-1.0 30) L 03/16/20 14:00 Urine Protein Trace (Negative) 03/16/20 14:00 Urine Glucose (UA) Norm (Normal) 03/16/20 14:00 Urine Ketones Negative (Negati ve) 03/16/20 14:00 Urine Blood 2+ (Negative) H 03/16/20 14:00 Urine Nitrate Negative (Negati ve) 03/16/20 14:00 Urine Bilirubin 1+ (NEGATIVE) H 03/16/20 14:00 Urine Urobilinogen 4 mg/dL (Negative ) H 03/16/20 14:00 Ur Leukocyte [place] ase Negative (Negati ve) 03/16/20 14:00 Urine RBC 0-4 /hpf (0-2) H 03/16/20 14:00 Urine WBC 0-4 /hpf (0-5) H 03/16/20 14:00 Ur Squamous Epith Cells 0-4 (0-5) H 03/16/20 14:00 Amorphous Sediment Not Reportable 03/16/20 14:00 Urine Bacteria Trace (NONE) 03/16/20 14:00 Urine Mucus Trace 03/16/20 14:00 Impressions Chest/Abdomen/Pelvis CT 03/16/20 10:46 IMPRESSION: Partially loculated left pleural effusion, left lung pneumonia versus atelectasis Liver: No mass. Gallbladder and bile ducts: Cholelithiasis. No biliary ductal dilatation. Pancreas: Normal. No ductal dilation. Spleen: Normal. No splenomegaly. Adrenals: Normal. No mass. Kidneys and ureters: Right renal calculi, no hydronephrosis of either kidney. 5 cm left renal cysts, no further evaluation needed. Stomach and bowel: No acute findings. No obstruction. No mucosal thickening. Appendix: No evidence of appendicitis. Intraperitoneal space: Unremarkable. No free air. No significant fluid collection. Vasculature: No abdominal aortic aneurysm. Lymph nodes: Pelvic lymph node dissection. No significant adenopathy. Bladder: Unremarkable as visualized. Reproductive: Prostatectomy Bones/joints: No acute findings. Lumbar degenerative disc disease. Soft tissues: Unremarkable. Chest X-Ray 03/17/20 17:54 IMPRESSION: Moderate left pleural effusion Micro: Micro: Microbiology 03/17/20 16:00 Legionella Urinary Antigen - Final Urine Catheterize d 03/17/20 11:00 Gram Stain - Final Sputum - Expector ated Sputum 03/16/20 12:30 Blood Culture - Pr eliminary Blood NEGATIVE TO RHONA E 03/16/20 12:25 Blood Culture - Pr eliminary Blood NEGATIVE TO RHONA E 03/16/20 20:00 Bacterial Antigens - Final Urine,Voided Imaging^: CT Chest: I personally reviewed and interpreted this imaging study as follows: A&P Assessment and plan (1) Pleural effusion: Status: Acute (2) Sepsis: Status: Acute Qualifiers: Sepsis type: sepsis due to unspecified organism Sepsis acute organ dysfunction status: without acute organ dysfunction Qualified Code(s): A41.9 - Sepsis, unspecified organism (3) Atrial fibrillation and flutter: Status: Acute Additional A&P Information # Acute hypoxic respiratory failure, likely secondary to loculated left pleural effusion - infectious vs Malignancy # Sepsis likely due to Pneumonia CT chest: Partially loculated pleural effusion left side Currently on 5L O2 - in mild respiratory distress 14 Fr chest tube placed and drained 500 C.C of straw colored fluid and sent to various studies including cytology. Atrium under gravity and will revisit tomorrow. If no significant output or improvement on repeat imaging - Might need bigger Fr surgical chest tube/VATS - Will consult CT surgery Continue Zosyn and azithromycin empirically Follow up pleural fluid studies incl cx and gram stain COVID 19 testing- negative #Rest of the management as per primary team Clinical condition and plan of care explained in detail with the patient. He verbalized understanding and agreement the plan of care. We will follow-up tomorrow Thanks for the consult Total time spent for the initial consultation including 14 [place] chest tube insertion procedure ~ 45 min Consult Attestations Medical Necessity Statement: Acute hypoxeic resp failure, sepsis with loculated left pleural effusion Time Spent in Patient Care: Greater than 35 minutes (>than 50% of time spent in counselling and/or direct pt care on unit) . 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
[2020-03-17 20:28] LABS: Apprearance, Body Fluid CLEAR (CLEAR); Color, Body Fluid YELLOW (PALE YELLOW); PATH Referral YES; Triglycerides, Pleural Fluid 31 mg/dL
[2020-03-17 20:29] LABS: LDH Pleural Fluid 930 U/L; Total Protein Pleural Fluid 4.4 g/dL
[2020-03-18] VITALS (23 sets, daily range): BP systolic 99–131; BP diastolic 56–100; PULSE 76–130; RESP 13–22; TEMP 36.5–36.6; O2SAT 85–100
[2020-03-18] MEDS: oxyCODONE 5 mg IR Tab/Cap 10 MG PO ×3 (02:06→20:47)
--- NOTE | 2020-03-18 02:44 | PC.NURSE ---
Shift change report rcd from KENNA Lewis. Pt has complained of pain a few times. oxycodone seems to help. Pt seems to be having CP from pneumonia. Chest tube has drained 500 mL during the day, and only a few mL since change of shift.
[2020-03-18] MEDS: piperacillin-tazobactam 3.375 GM in sodium chloride 0.9% (plus) 50 ML IV ×3 (03:29→19:44)
[2020-03-18] MEDS: guaiFENesin 600 mg Tablet 1200 MG PO ×2 (03:30→15:08)
[2020-03-18] MEDS: tamsulosin 0.4 mg Capsule PO (06:26)
[2020-03-18 06:53] LABS: Basophils % 0.2 %; Eosinophils % 0.1 %; Hematocrit 42.5 % (42.0-52.0); Hemoglobin 12.7 g/dL (11.7-16.6); Lymphocytes # 0.9 10^3/uL (0.8-4.8); Lymphocytes % 3.9 %; Mean Corpuscular HGB Conc 29.9 g/dL (30.0-36.0); Mean Corpuscular Hemoglobin 26.8 pg (28.0-34.0); Mean Corpuscular Volume 89.9 fL (80-94); Mean Platelet Volume 9.7 fL (7.4-10.4); Monocytes # 1.8 10^3/uL (0.2-0.9); Monocytes % 7.5 %; Neutrophils # 20.68 10^3/uL (1.8-7.7); Neutrophils % 87.7 %; Nucleated Red Blood Cells % 0 %; Platelet Count 293 10^3/cmm (130-400); Red Blood Count 4.73 10^6/uL (4.1-5.3); Red Cell Distribution Width 13.9 % (12.1-15.1); White Blood Count 23.6 10^3/uL (4.0-10.0)
[2020-03-18 07:15] LABS: Alanine Aminotransferase 10 U/L (0-41); Albumin Level 3.1 g/dL (3.5-5.2); Alkaline Phosphatase 88 IU/L (40-130); Anion Gap 13.2 (5-19); Aspartate Amino Transferase 13 U/L (0-40); Blood Urea Nitrogen 28 mg/dL (8-23); Carbon Dioxide 28 mmol/L (22-29); Chloride 96 mmol/L (98-107); Globulin 3.7 g/dL (1.3-4.6); Glucose 147 mg/dL (65-115); Osmolality Calculated 276 mOsm/kg (285-295); Potassium 4.2 mmol/L (3.5-5.1); Sodium 133 mmol/L (136-145); Total Bilirubin 0.6 mg/dL (0.15-1.2); Total Protein 6.8 g/dL (6.6-8.7)
[2020-03-18] MEDS: predniSONE 10 mg Tablet PO (09:00)
[2020-03-18] MEDS: aspirin 81 mg EC Tablet PO (09:00)
[2020-03-18] MEDS: polyethylene glycol 3350 Pkt 17 gm PO (09:00)
[2020-03-18 09:01] LABS: Coronavirus Lab Test PTC NOT DETECTED
[2020-03-18] MEDS: azithromycin 250 mg Tablet 500 MG PO (09:01)
[2020-03-18] MEDS: FUROsemide 10 mg/mL SDV 2mL 20 MG IVP (11:43)
--- NOTE | 2020-03-18 11:45 | USCV_ITS ---
VelRobby Age: 84 Gender: M : 1935 Exam Date: 03/18/2020 15:57 Ordering Phys: Ann Marie Altman MD Technologist: Keren Leos Exam Location: [facility] – [place] Indication: AFIB BP: / HR: 111 Rhythm: Sinus Technical Quality: Very Ltd. MEASUREMENTS (Male / Female) Normal Values 2D ECHO LV Diastolic Diameter PLAX 4.8 cm 4.2 - 5.9 / 3.9 - 5.3 cm LV Systolic Diameter PLAX 3.4 cm LV Chamber Size 4.2 cm IVS Diastolic Thickness 1.5 cm 0.6 - 1.0 / 0.6 - 0.9 cm IVS Systolic Thickness 2.1 cm LVPW Diastolic Thickness 0.9 cm 0.6 - 1.0 / 0.6 - 0.9 cm LVPW Systolic Thickness 1.1 cm RV Chamber Size 3.7 cm LVOT Diameter 2.1 cm LV Ejection Fraction 2D Teich 56.5 % LA Diameter 3.3 cm LA Width 3.9 cm LA Height 5.2 cm RA Width 3.2 cm RA Height 4.2 cm Aorta at Sinotubular Diameter 3.1 cm M-MODE LV Diastolic Diameter MM 5.8 cm 4.2 - 5.9 / 3.9 - 5.3 cm LV Systolic Diameter MM 4.0 cm LV Ejection Fraction MM Teich 57.0 % IVS Diastolic Thickness MM 1.2 cm 0.6 - 1.0 / 0.6 - 0.9 cm IVS Systolic Thickness MM 2.3 cm LVPW Diastolic Thickness MM 1.7 cm 0.6 - 1.0 / 0.6 - 0.9 cm LVPW Systolic Thickness MM 2.1 cm RV Diastolic Diameter MM 1.8 cm MV E Point Septal Separation 0.9 cm DOPPLER AV Peak Velocity 133.0 cm/s LVOT Peak Velocity 70.0 cm/s AV Area Cont Eq vti 2.2 cm squared AV Area Cont Eq pk 1.8 cm squared MV Area PHT 5.4 cm squared MV E' Velocity 13.0 cm/s Mitral E to MV E' Ratio 6.4 Mitral E to LV E' Lateral Ratio 6.2 Mitral E to LV E' Septal Ratio 6.6 TR Peak Velocity 193.3 cm/s TR Peak Gradient 14.9 mmHg TR Mean Velocity 104.9 cm/s TR Mean Gradient 6.7 mmHg TR Velocity Time Integral 29.3 cm PV Peak Velocity 77.0 cm/s RV Acceleration Time 0.0 s RV Ejection Time 0.4 s RV AcT/ET 0.1 FINDINGS Left Ventricle Normal left ventricular cavity size. Normal left ventricular systolic function. No regional wall motion abnormalities. Left ventricular ejection fraction is estimated at 55 %. Grade II/IV diastolic dysfunction, moderately elevated filling pressures. Right Ventricle The right ventricle is normal in size and function. RVSP could not be calculated due to incomplete tricuspid regurgitation velocity profile. Right Atrium The right atrium is normal in size. Left Atrium The left atrium is normal in size. Mitral Valve Structurally normal mitral valve without significant stenosis or prolapse. Mild to moderate mitral regurgitation. Aortic Valve Aortic valve sclerosis without stenosis or regurgitation. Tricuspid Valve Structurally normal tricuspid valve without significant stenosis or regurgitation. Pulmonic Valve Structurally normal pulmonic valve without significant stenosis. There is no pulmonic regurgitation. Pericardium Normal pericardium without effusion. Aorta Normal ascending aorta dimension. CONCLUSIONS 1-Normal left ventricular cavity size. Normal left ventricular systolic function. No regional wall motion abnormalities. Left ventricular ejection fraction is estimated at 55 %. Grade II/IV diastolic dysfunction, moderately elevated filling pressures. 2-There is no pericardial effusion. 3-Structurally normal mitral valve without significant stenosis or prolapse. Mild to moderate mitral regurgitation. 4-The right ventricle is normal in size and function. RVSP could not be calculated due to incomplete tricuspid regurgitation velocity profile. 5-Right atrial pressure is around 5 mm of mercury. 6-No significant change since the prior echocardiogram study of 08/02/2016. Allison Suarez MD (Electronically Signed) Final Date: 19 March 2020 20:16 S
--- NOTE | 2020-03-18 11:55 | PC.RESP ---
Pulmonary Rehab information sent to patient.
[2020-03-18] MEDS: dilTIAZem 60 mg Tablet PO ×2 (15:08→20:47)
--- NOTE | 2020-03-18 16:36 | P.PN_ITS ---
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 CTA chest negative for PE, however with left sided well circumscribed pleural effusion with atelactasis +/- underlying consolidation. s/p 14 fr chest tube 03/17/2020 - 700 cc straw colored fluid - wbc predominant, cytology negative for malignancy. wbc down to 23K; no fever spikes, pt still on 5L Nc, not in acute respiratory distress. Vitals/I&O/Wt Last Vital Signs Temp 97.8 F 03/18/20 08:00 Pulse 120 H 03/18/20 10:24 Resp 13 03/18/20 10:24 BP 99/73 03/18/20 10:24 Pulse Ox 96 03/18/20 10:24 03/18/20 03/18/20 03/18/20 06:59 14:59 22:59 Intake Total 300 / 694.50 541.25 / 541.25 Output Total 750 / 1640 Balance -450 / -945.50 541.25 / 541.25 Weight last 48 hrs Weight 260 lb 8 oz Physical Exam Narrative: EXAM NARRATIVE: GEN: Awake, alert and oriented, no acute distress NECK: Supple CVS: S1S2 N RS: Reduced air entry left side; left chest tube in place Abd: Soft, nt/nd , bs+ PATIENT SUPPORT SPECIALIST: no focal neuro deficits Urinary Catheter Management^: Gomez: Cath Placed During This Visit: yes Reason for Continuing Indwelling Catheter: Accurate Measurement of Urinary Output in Critically Ill Patients Urinary Catheter Date of Insertion: 03/16/20 Urinary Catheter Time of Insertion: 19:15 Data : 03/18/20 05:55 03/18/20 05:55 Micro: Microbiology 03/17/20 11:00 Gram Stain - Final Sputum - Expectorated Sputum Sputum Culture - Preliminary 03/17/20 16:00 MRSA Culture - Final Nose 03/17/20 18:15 Gram Stain - Final Pleural Fluid 03/17/20 18:15 CASSANDRA Preparation - Final Other Source 03/17/20 16:00 Legionella Urinary Antigen - Final Urine Catheterized 03/16/20 12:30 Blood Culture - Preliminary Blood NEGATIVE TO DATE 03/16/20 12:25 Blood Culture - Preliminary Blood NEGATIVE TO DATE A&P Assessment and plan (1) Pleural effusion: Status: Acute (2) Sepsis: Status: Acute Qualifiers: Sepsis acute organ dysfunction status: without acute organ dysfunction Sepsis type: sepsis due to unspecified organism Qualified Code(s): A41.9 - Sepsis, unspecified organism (3) COPD (chronic obstructive pulmonary disease): Status: Acute Qualifiers: COPD type: unspecified COPD Qualified Code(s): J44.9 - Chronic obstructive pulmonary disease, unspecified (4) Sleep apnea: Status: Chronic Qualifiers: Sleep apnea type: unspecified type Qualified Code(s): G47.30 - Sleep apnea, unspecified (5) Atrial fibrillation and flutter: Status: Acute Additional A&P Information # Acute hypoxic respiratory failure, likely secondary to loculated left pleural effusion - infectious vs Malignancy # Sepsis likely due to Pneumonia # Afib RVR CT chest: 03/16/20: Partially loculated pleural effusion left side; Currently on 5L O2 S/p left side throracentesis 03/17 - 700 cc - CXR still has effusion likely tube in one loculation. Studies suggestive of exudative fluid likely infectious - but negative for malignancy in cytology Pt. is clinically stable and wbc trending down, no fevers noted. Flushed with NS and let underwaterseal; encouraged Pulm toileting;Incentive spirometry; BiPAP at night will help to open up lung if pt. tolerates Good candidate to try tpa 10 mg + DNase 5 mg to lyse adhesions and see if it helps open up loculations - Combination has shown decreased need for surgery in some studies however results are mixed in few other. No mortality benefit in any of the studies. Currently Dornase not available in hospital formulary. Will try tpa alone tomorrow if no improvement in evening CXR (Although combination is favored but tpa alone can be given). To repeat CT Chest sometime tomorrow to check for tube position and other locu lation Case discussed with Dr. Savage (CT surgeon) and he agrees with the plan - will try to avoid invasive surgery as much possible given pt. 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 He verbalized understanding and agreed with the plan of care. Total time spent ~ 35 min Attestations Medical Necessity Statement*: left pleural effusion with chest tube Time Spent in Patient Care: 16 - 35 minutes Coding Level of Care Code Established Pt Acute Cabin Furnishings Installer for Chg Fwd Patient Type Established History Expanded Problem Focused Exam Detailed Medical Decision Making High Complexity Diagnoses Pleural effusion J90 Sepsis A41.9 Sepsis acute organ dysfunction status: without acute organ dysfunction Sepsis type: sepsis due to unspecified organism COPD (chronic obstructive pulmonary disease) J44.9 COPD type: unspecified COPD Sleep apnea G47.30 Sleep apnea type: unspecified type Atrial fibrillation and flutter I48.91; I48.92
--- NOTE | 2020-03-18 16:45 | XRR_ITS ---
PROCEDURE INFORMATION: Exam: XR Chest, 1 View Exam date and time: 03/18/2020 5:19 PM Age: 84 years old Clinical indication: Device placement; Chest tube; Additional info: Left chest tube and pleural effusion TECHNIQUE: Imaging protocol: XR of the chest Views: 1 view. COMPARISON: CR XR chest 1V portable [id number] 03/17/2020 6:39 PM FINDINGS: Tubes, catheters and devices: Faint visualization of left chest tube.. Lungs: Persistent underlying opacity reflecting underlying infiltrate or atelectasis left lower lung with left effusion. Pleural space: No pneumothorax. Heart/Mediastinum: Cardiomegaly. Vasculature: Calcified thoracic aorta. Diaphragm: Elevation left hemidiaphragm. Bones/joints: Degenerative change of the spine. XR/XR chest 1V [id number] IMPRESSION: 1. No interval change of the chest since 1 day previous.
--- NOTE | 2020-03-18 16:54 | P.PN_ITS ---
Subjective Subjective: Interval history: Continues on 5lpm NC, no overnight events, s/p thoarcentesis, fluid analysis revealed exudative effusion Medications: Reviewed: Yes Vitals/I&O/Wt Last Vital Signs Temp 97.8 F 03/18/20 08:00 Pulse 94 03/18/20 16:39 Resp 18 03/18/20 16:39 BP 99/73 03/18/20 10:24 Pulse Ox 94 03/18/20 16:39 03/18/20 03/18/20 03/18/20 06:59 14:59 22:59 Intake Total 300 / 694.50 541.25 / 541.25 Output Total 750 / 1640 Balance -450 / -945.50 541.25 / 541.25 Weight last 48 hrs Weight 118.161 kg Physical Exam Narrative: EXAM NARRATIVE: GEN: Awake, alert and oriented, no acute distress CVS: S1S2 N RS: Reduced air entry left side Abd: Soft, nt/nd , bs+ SUPERVISOR FILES: no focal neuro deficits Urinary Catheter Management^: Gomez: Cath Placed During This Visit: yes Reason for Continuing Indwelling Catheter: Accurate Measurement of Urinary Output in Critically Ill Patients Urinary Catheter Date of Insertion: 03/16/20 Urinary Catheter Time of Insertion: 19:15 Data : 03/19/20 06:02 03/19/20 06:02 Micro: Microbiology 03/17/20 11:00 Gram Stain - Final Sputum - Expectorated Sputum Sputum Culture - Preliminary 03/17/20 16:00 MRSA Culture - Final Nose 03/17/20 18:15 Gram Stain - Final Pleural Fluid 03/17/20 18:15 CASSANDRA Preparation - Final Other Source 03/17/20 16:00 Legionella Urinary Antigen - Final Urine Catheterized 03/16/20 12:30 Blood Culture - Preliminary Blood NEGATIVE TO DATE 03/16/20 12:25 Blood Culture - Preliminary Blood NEGATIVE TO DATE A&P Assessment and plan (1) Sepsis: Status: Acute Qualifiers: Sepsis type: sepsis due to unspecified organism Sepsis acute organ dysfunction status: without acute organ dysfunction Qualified Code(s): A41.9 - Sepsis, unspecified organism (2) Pleural effusion: Status: Acute (3) Atrial fibrillation and flutter: Status: Acute (4) Sleep apnea: Status: Chronic Qualifiers: Sleep apnea type: unspecified type Qualified Code(s): G47.30 - Sleep apnea, unspecified (5) COPD (chronic obstructive pulmonary disease): Status: Acute Qualifiers: COPD type: unspecified COPD Qualified Code(s): J44.9 - Chronic obstructive pulmonary disease, unspecified (6) T2DM (type 2 diabetes mellitus): Status: Acute Qualifiers: Diabetes mellitus termite treater helper insulin use: without residential use Diabetes mellitus complication status: without complication Qualified Code(s): E11.9 - Type 2 diabetes mellitus without complications (7) Prostate cancer metastatic to bone: Status: Acute Additional A&P Information Continue ICU 1. Sepsis: meets criteria with tachycardia, tachypnea , leukocytosis 2. Acute hypoxic respiratory failure, likely secondary to loculated left pleural effusion, which may be parapneumonic 3. Partially loculated pleural effusion left side,exudative, likely parapneumonic effusion Elevated WBC trending down, subjective fevers (not relaible indicator as on steroids), possible underlying consolidation Continue Zosyn , d/c azithromycin as s/p 1500mg. Vanocmycin added. WBC improving, likely 2/2 drainage. Follow fluid cx Cytology without malignant cells negative urine bacterial antigen and legionella antigen MRSA nasal PCR screen negtaive Sputum cx and gram stain pending Appreciate thoracentesis, partially loculaed effusion remains, add incentive spirometry and bipap at night time to help re exapnsion Less likely to be opprotunistic fungal infection given low dose steroids and no gross prolonged neutropenia or leukopenia on labs. CASSANDRA prep negative, cx pending. 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 Atrial flutter, new per history, may be 2/2 underlying pneumonia vs effusion serial troponin without significant delta echocardiogram ordered, pending Currently on cardizem infusion, start overlap with po cardizem and titrate down drip hold off on a/c decisions for now as possible procedures 5. HTN: hold Imdur for now, BP currently well controlled 6. prostate ca with mets to bone, pleural fluid cytology negative , continue prednisone 10mg qd Continue daily casodex Full code Dvt ppx: lovenox Attestations Medical Necessity Statement*: optimization of respiratory status Coding Level of Care Code Acute Maritime Pilot for Chg Fwd Diagnoses Sepsis A41.9 Sepsis type: sepsis due to unspecified organism Sepsis acute organ dysfunction status: without acute organ dysfunction Pleural effusion J90 Atrial fibrillation and flutter I48.91; I48.92 Sleep apnea G47.30 Sleep apnea type: unspecified type COPD (chronic obstructive pulmonary disease) J44.9 COPD type: unspecified COPD T2DM (type 2 diabetes mellitus) E11.9 Diabetes mellitus residential insulin use: without residential use Diabetes mellitus complication status: without complication Prostate cancer metastatic to bone C61; C79.51
[2020-03-18] MEDS: gabapentin 100 mg Capsule PO (20:47)
[2020-03-18] MEDS: ipratropium-albuterol 3 mL Neb INHALATION (21:34)
[2020-03-18] MEDS: ondansetron 2 mg/ML SDV 2 mL 4 MG IVP (23:31)
[2020-03-19] VITALS (30 sets, daily range): BP systolic 98–150; BP diastolic 56–93; PULSE 60–120; RESP 11–25; TEMP 36.1–36.8; O2SAT 89–98; BMI 42.4
[2020-03-19] MEDS: piperacillin-tazobactam 3.375 GM in sodium chloride 0.9% (plus) 50 ML IV ×3 (03:35→20:33)
[2020-03-19] MEDS: guaiFENesin 600 mg Tablet 1200 MG PO ×2 (03:36→14:42)
--- NOTE | 2020-03-19 04:47 | PC.NURSE ---
Pt has more color to his face this shift than previous date night sitter. Pt got nauseated about 2300 and Zofran was given. This seemed to help a bit. Pt was also still in pain at this time. Dr. Brenner was notified and PRN pain medicine was changed. The nausea completely went away once the dilaudid was given and taken effect. Pt was restless until 0230. After giving first dose of PO dilaudid, pt became a bit altered. He mentioned calling his son and that he was mad his and daughter weren't here visiting. Pt was reoriented.
[2020-03-19] MEDS: tamsulosin 0.4 mg Capsule PO (05:37)
[2020-03-19 06:34] LABS: Basophils % 0.1 %; Eosinophils # 0.1 10^3/uL (0.0-0.8); Eosinophils % 0.5 %; Hematocrit 43.3 % (42.0-52.0); Lymphocytes # 0.9 10^3/uL (0.8-4.8); Lymphocytes % 5.4 %; Mean Corpuscular Hemoglobin 26.7 pg (28.0-34.0); Mean Corpuscular Volume 89.1 fL (80-94); Mean Platelet Volume 9.4 fL (7.4-10.4); Monocytes # 1.2 10^3/uL (0.2-0.9); Monocytes % 7.2 %; Neutrophils # 14.14 10^3/uL (1.8-7.7); Neutrophils % 86.1 %; Nucleated Red Blood Cells % 0 %; Platelet Count 288 10^3/cmm (130-400); Red Blood Count 4.86 10^6/uL (4.1-5.3); Red Cell Distribution Width 13.7 % (12.1-15.1); White Blood Count 16.4 10^3/uL (4.0-10.0)
[2020-03-19 07:11] LABS: Alanine Aminotransferase 21 U/L (0-41); Alkaline Phosphatase 85 IU/L (40-130); Aspartate Amino Transferase 26 U/L (0-40); Blood Urea Nitrogen 23 mg/dL (8-23); Calcium 7.9 mg/dL (8.5-10.5); Carbon Dioxide 27 mmol/L (22-29); Chloride 95 mmol/L (98-107); Globulin 3.8 g/dL (1.3-4.6); Glucose 145 mg/dL (65-115); Osmolality Calculated 269 mOsm/kg (285-295); Sodium 130 mmol/L (136-145); Total Bilirubin 0.4 mg/dL (0.15-1.2); Total Protein 6.8 g/dL (6.6-8.7)
[2020-03-19 07:24] LABS: Anion Gap 12.2 (5-19); Potassium 4.2 mmol/L (3.5-5.1)
[2020-03-19 08:33] LABS: Vancomycin Trough 14.3 ug/mL (10-15)
[2020-03-19] MEDS: ipratropium-albuterol 3 mL Neb INHALATION ×3 (08:59→21:06)
[2020-03-19] MEDS: predniSONE 10 mg Tablet PO (09:32)
[2020-03-19] MEDS: dilTIAZem 60 mg Tablet PO ×3 (09:32→20:37)
[2020-03-19] MEDS: aspirin 81 mg EC Tablet PO (09:32)
[2020-03-19] MEDS: polyethylene glycol 3350 Pkt 17 gm PO (09:32)
[2020-03-19] MEDS: alteplase 1 mg/mL SDV 2 mL 10 MG XX (10:30)
--- NOTE | 2020-03-19 10:46 | PM.PN ---
Subjective Subjective: Interval history: Afebrile. Hemodynamically stable. Heart rate is better controlled today. Urine output of 1.4 L. Net positive still at 800 mL. Saturating 96% on 5 L/min. Oxygen requirements remain stable. Leukocytosis trending down to 16 today.Continues on 5mg iv cardizem. No growth on pleural fluid cx thus far. Left pleural drain output ~40cc, however without corresponding improvement on CXR. Medications: Reviewed: Yes Vitals/I&O/Wt Last Vital Signs Temp 97.0 F L 03/19/20 08:00 Pulse 90 03/19/20 09:00 Resp 19 H 03/19/20 09:00 BP 114/77 03/19/20 08:00 Pulse Ox 96 03/19/20 09:00 03/18/20 03/19/20 03/19/20 22:59 06:59 14:59 Intake Total 999 / 2020.25 425 / 2446.25 354 / 354 Output Total 840 / 840 600 / 1440 Balance 160 / 1181.25 -175 / 1006.25 354 / 354 Weight last 48 hrs Weight 119.204 kg Physical Exam Narrative: EXAM NARRATIVE: GEN: Awake, alert and oriented, mild tachypnea, however overall clinically improving CVS: S1S2 N RS: reduced air entry left lung Abd: Soft, nt/nd , bs+ ANALYTICAL RESEARCH CHEMIST: no focal neuro deficits EXT: minimal depenedent edema Urinary Catheter Management^: Gomez: Cath Placed During This Visit: yes Reason for Continuing Indwelling Catheter: Acute Urinary Retention or Obstruction Urinary Catheter Date of Insertion: 03/16/20 Urinary Catheter Time of Insertion: 19:15 Data : 03/19/20 06:02 03/19/20 06:02 Micro: Microbiology 03/17/20 11:00 Gram Stain - Final Sputum - Expectorated Sputum Sputum Culture - Preliminary 03/17/20 16:00 MRSA Culture - Final Nose 03/17/20 18:15 Gram Stain - Final Pleural Fluid A&P Assessment and plan (1) Sepsis: Status: Acute Qualifiers: Sepsis type: sepsis due to unspecified organism Sepsis acute organ dysfunction status: without acute organ dysfunction Qualified Code(s): A41.9 - Sepsis, unspecified organism (2) Pleural effusion: Status: Acute (3) Atrial fibrillation and flutter: Status: Acute (4) Sleep apnea: Status: Chronic Qualifiers: Sleep apnea type: unspecified type Qualified Code(s): G47.30 - Sleep apnea, unspecified (5) COPD (chronic obstructive pulmonary disease): Status: Acute Qualifiers: COPD type: unspecified COPD Qualified Code(s): J44.9 - Chronic obstructive pulmonary disease, unspecified (6) T2DM (type 2 diabetes mellitus): Status: Acute Qualifiers: Diabetes mellitus mcfp insulin use: without mcfp use Diabetes mellitus complication status: without complication Qualified Code(s): E11.9 - Type 2 diabetes mellitus without complications (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 Sepsis: meets criteria with tachycardia, tachypnea , leukocytosis 2. Acute hypoxic respiratory failure, secondary to complex left parapneumonic effusion. 3. Partially loculated pleural effusion left side,exudative, likely parapneumonic effusion No mandy empyema noted, however given abundant neutrophils seen on Gram stain and pathology, fluid WBC count greater than 10,000 mostly PMN hours, loculated appearance of the fluid, LDH from the pleural fluid greater than 3 times the serum value, the effusion does lie on the spectrum of complicated parapneumonic effusion. Drainage catheter has been placed on March 17. Continues to have poor drainage, with gross improvement in chest x-ray. Plan for a CT of the chest this evening to assess response. Trial of intrapleural TPA today to try to break down some of the loculations. Incentive spirometry and BiPAP in an attempt to reexpand the lungs as much as possible. Trying to maximize conservative measures prior to any surgical modalities such as VATS given patient's advanced stage of cancer and 84 years of age and as such a high risk of morbidity with any surgical procedure. Pleural fluid cultures are negative thus far, however not unexpected from stage I to stage II effusions. Sputum culture with normal respiratory jimmy. Some reassuring signs of recovery include WBC trending down, hemodynamic stability, A. fib better controlled. Continue Zosyn , s/p azithromycin 1500mg. Continue vancomycin. Okay for trough to be between 8-15 empirically. If pleural fluid cultures continue to be negative, will aim to discontinue vancomycin and continue Zosyn alone. At time of discharge, suspect that patient is going to need at least 2 to 3 weeks of oral antibiotic regimen, of course depending on how much drainage we have been able to establish by that time. Combination of Augmentin and Levaquin is a possibility, however remains dependent on final culture results. Follow fluid cx Cytology without malignant cells negative urine bacterial antigen and legionella antigen MRSA nasal PCR screen negative Sputum cx and gram stain normal respiratory jimmy. Appreciate thoracentesis, partially loculaed effusion remains, Less likely to be opprotunistic fungal infection given low dose steroids and no gross prolonged neutropenia or leukopenia on labs. CASSANDRA prep negative, cx pending. AG/GM and BDG pending. COVID 19 testing- NOTCHER PCR negative 4. Atrial flutter, new per history, may be 2/2 underlying pneumonia vs effusion as a result of sepsis serial troponin without significant delta echocardiogram ordered, pending intermittently between sinus rhythm and A fib today Currently on cardizem infusion at 5, reducing iv requirements, increase po cardizem and titrate down drip hold off on a/c decisions for now as possible procedures 5. HTN: hold Imdur for now, BP currently well controlled 6. prostate ca with mets to bone, pleural fluid cytology negative , continue prednisone 10mg qd Continue daily casodex Full code Dvt ppx: lovenox Attestations Medical Necessity Statement*: ongoing optimization of respiratory status, pleural fluid drainage, need for iv abx Coding Level of Care Code Acute Bagel Maker for Chg Fwd Diagnoses Sepsis A41.9 Sepsis type: sepsis due to unspecified organism Sepsis acute organ dysfunction status: without acute organ dysfunction Pleural effusion J90 Atrial fibrillation and flutter I48.91; I48.92 Sleep apnea G47.30 Sleep apnea type: unspecified type COPD (chronic obstructive pulmonary disease) J44.9 COPD type: unspecified COPD T2DM (type 2 diabetes mellitus) E11.9 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
[2020-03-19] MEDS: lidocaine 1% INJ 20 mL 5 ML IV (11:35)
--- NOTE | 2020-03-19 12:29 | PC.SOCIAL ---
IMM* Patient received a copy, original initialled in the chart.
--- NOTE | 2020-03-19 14:17 | P.PN_ITS ---
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 On admisson- CTA chest negative for PE, however with left sided well circumscribed pleural effusion with atelactasis +/- underlying consolidation. s/p 14 fr chest tube 03/17/2020 - 03/19/2020 - 700 cc straw colored fluid - wbc predominant, cytology negative for malignancy. 20cc overnight wbc down to 16K; no fever spikes, pt saturating well on 4L Nc, not in acute respiratory distress. Vitals/I&O/Wt Last Vital Signs Temp 97.0 F L 03/19/20 08:00 Pulse 90 03/19/20 09:00 Resp 19 H 03/19/20 09:00 BP 114/77 03/19/20 08:00 Pulse Ox 96 03/19/20 09:00 03/18/20 03/19/20 03/19/20 22:59 06:59 14:59 Intake Total 999 / 2020.25 425 / 2446.25 404 / 404 Output Total 840 / 840 600 / 1440 Balance 160 / 1181.25 -175 / 1006.25 404 / 404 Weight last 48 hrs Weight 262 lb 12.8 oz Physical Exam Narrative: EXAM NARRATIVE: GEN: Awake, alert and oriented, no acute distress NECK: Supple CVS: S1S2 N RS: Reduced air entry left side; left chest tube in place Abd: Soft, nt/nd , bs+ AIRBORNE OPERATIONS MANAGER: no focal neuro deficits Urinary Catheter Management^: Gomez: Cath Placed During This Visit: yes Reason for Continuing Indwelling Catheter: Acute Urinary Retention or Obstruction Urinary Catheter Date of Insertion: 03/16/20 Urinary Catheter Time of Insertion: 19:15 Data : 03/19/20 06:02 03/19/20 06:02 Micro: Microbiology 03/17/20 18:15 Gram Stain - Final Pleural Fluid Body Fluid Culture - Preliminary 03/17/20 11:00 Gram Stain - Final Sputum - Expectorated Sputum Sputum Culture - Final 03/17/20 16:00 MRSA Culture - Final Nose A&P Assessment and plan (1) Pleural effusion: Status: Acute (2) Sepsis: Status: Acute Qualifiers: Sepsis type: sepsis due to unspecified organism Sepsis acute organ dysfunction status: without acute organ dysfunction Qualified Code(s): A41.9 - Sepsis, unspecified organism (3) COPD (chronic obstructive pulmonary disease): Status: Acute Qualifiers: COPD type: unspecified COPD Qualified Code(s): J44.9 - Chronic ob structive pulmonary disease, unspecified (4) Sleep apnea: Status: Chronic Qualifiers: Sleep apnea type: unspecified type Qualified Code(s): G47.30 - Sleep apnea, unspecified (5) Atrial fibrillation and flutter: Status: Acute Additional A&P Information # Acute hypoxic respiratory failure, likely secondary to loculated left pleural effusion - infectious vs Malignancy # Sepsis likely due to Pneumonia # Afib RVR CT chest: 03/16/20: Partially loculated pleural effusion left side; Currently on 5L O2 S/p left side throracentesis 03/17 - 700 cc - CXR still has effusion likely tube in one loculation. Labs suggest fluid likely infectious - but negative for malignancy- Pt. is clinically stable and wbc trending down, no fevers noted. 03/18: flushed with NS and was left underwater suction - Overnight additional 20 cc drained; Repeat CXR no change 03/19: Instilled 10 mg tpa into chest tube (ideally would be to give along with Dornase but formulary does not carry it - although no mortality benefit atleast reduces surgery chances by 30-50%) Repeat CT Chest today evening to check for tube position and other loculation Will try to avoid invasive surgery as much possible given pt. age & comorbidities Encouraged Pulm toileting;Incentive spirometry; BiPAP at night will help to open up lung if pt. tolerates Continue Antibiotics as per primary and adjust based on culture sensitivity. Follow up pleural fluid cultures COVID 19 testing- negative # COPD Pt does not remember having PFTs but uses occasional inhalers given by his PCP reported 40 years of 1-2 packs smoking history - quit many years ago Continue Duoneb nebs q 6 hr dominick PFTs as out patient # MORGAN - Reports he was diagnosed with MORGAN after sleep study but does not use CPAP/BiPAP - PSG as out patient once clinically stable - BiPAP at night - to provide some positive pressures to open up lungs #Rest of the management as per primary team Clinical condition and plan of care explained in detail to the patient. He verbalized understanding and agreed with the plan of care. Total time spent ~ 35 min Attestations Medical Necessity Statement*: left loculated pleural effusion with left chest tube in place. Time Spent in Patient Care: 16 - 35 minutes Coding Level of Care Code Acute Ingredient Scaler Helper for g Fwd Diagnoses Pleural effusion J90 Sepsis A41.9 Sepsis type: sepsis due to unspecified organism Sepsis acute organ dysfunction status: without acute organ dysfunction COPD (chronic obstructive pulmonary disease) J44.9 COPD type: unspecified COPD Sleep apnea G47.30 Sleep apnea type: unspecified type Atrial fibrillation and flutter I48.91; I48.92
[2020-03-19] MEDS: FUROsemide 10 mg/mL SDV 4mL 40 MG IVP (14:51)
--- NOTE | 2020-03-19 17:30 | CTR_ITS ---
PROCEDURE INFORMATION: Exam: CT Chest With Contrast Exam date and time: 03/19/2020 6:34 PM Age: 84 years old Clinical indication: Condition or disease; Lung condition and disease; Pleural effusion; Influenza; Additional info: Left pleural effusion TECHNIQUE: Imaging protocol: Computed tomography of the chest with intravenous contrast. Radiation optimization: All CT scans at this facility use at least one of these dose optimization techniques: automated exposure control; mA and/or kV adjustment per patient size (includes targeted exams where dose is matched to clinical indication); or iterative reconstruction. Contrast material: OMNIPAQUE 300; Contrast volume: 95 ml; Contrast route: INTRAVENOUS (IV); COMPARISON: CT angio chest w abd pel w con 03/16/2020 11:51 AM RADIATION DOSE METRICS: Total DLP (mGy-cm): 1038.47 FINDINGS: Lungs: There is volume loss and airspace opacity in the left lung especially the left lower lobe concerning for unchanged pneumonic infiltrate with atelectasis. There are moderate to severe emphysematous changes. There is mild right basilar atelectasis. Pleural space: There is a small right pleural effusion . There is a left hydropneumothorax with unchanged quantity of fluid within the small to moderate size loculated left pleural effusion. There is new mild pleural thickening and enhancement on the left concerning for empyema. Heart: Unremarkable. No cardiomegaly. No pericardial effusion. Aorta: Unremarkable. No aortic aneurysm. Lymph nodes: Unremarkable. No enlarged lymph nodes. Gallbladder and bile ducts: Multiple calcified gallstones are present. There is no wall thickening or pericholecystic fluid to suggest cholecystitis. Kidneys and ureters: There is a 5.3 cm simple cyst in the left kidney. There is nonobstructive right nephrolithiasis. Bones/joints: Osteopenia and moderate degenerative changes in the spine are noted. No acute bony abnormality. Soft tissues: There is induration of the subcutaneous fat adjacent to the skin surface and catheter compatible with recent instrumentation. There is subcutaneous emphysema along the left chest wall adjacent to a pigtail catheter the tip of which is in the soft tissues lateral to the left chest wall. CT/CT chest w con* [id number] IMPRESSION: 1. Left hydropneumothorax with unchanged quantity of fluid within the collection but there is now pleural thickening and enhancement concerning for empyema. There is only small amount of air within the collection. 2. Unchanged airspace opacity and volume loss left lung compatible with probable pneumonic infiltrate and atelectasis. 3. There is a small right pleural effusion with dependent right atelectasis. 4. There is subcutaneous emphysema along the left chest wall adjacent to a pigtail catheter the tip of which is in the soft tissues lateral to the left chest wall. The catheter is not within the left hydropneumothorax. 5. There is cholelithiasis. No cholecystitis. 6. There is an incidental 5.3 cm simple cyst left kidney. No follow-up is necessary. COMMENTS: Consistent with the [employer]'s Incidental Findings Committee white paper (J Am Hal Radiol 2018): Any incidental renal lesion less than 1.0 cm or classified as too small to characterize, or any incidental cystic renal lesion characterized as simple-appearing, is likely benign. No follow-up imaging is recommended for these lesions per consensus recommendations based on imaging criteria. Radiation Dose CTDIVOL = (mGy): DLP = 1038.47 (mGy-cm)
--- NOTE | 2020-03-19 19:58 | PC.NURSE ---
Spoke with Dr. Young chest tube is not in accurate position. Dr. Acosta was called by Dr. Young to come and remove chest tube. ready for rmoval all set up at bedside for procedure. Also Dr. Young said if patient becomes SOB at night to place on bipap. resp notified. New IV 18 guage started in left arm.
[2020-03-19] MEDS: gabapentin 100 mg Capsule PO (20:35)
--- NOTE | 2020-03-19 21:32 | XRR_ITS ---
PROCEDURE INFORMATION: Exam: XR Chest, 1 View Exam date and time: 03/19/2020 10:09 PM Age: 84 years old Clinical indication: Device placement; Other: Chest tube removal; Additional info: CT removed TECHNIQUE: Imaging protocol: XR of the chest Views: 1 view. COMPARISON: CT chest w con* [id number] 03/19/2020 6:53 PM FINDINGS: Tubes, catheters and devices: Interval removal of previously visualized left pleural catheter with mild residual left pleural air. Lungs: Interstitial prominence. Asymmetric left basilar airspace/pleural disease obscuring the inferior left heart border left hemidiaphragm. Pleural space: Mild right pleural thickening. Heart/Mediastinum: No cardiomegaly. Vasculature: Calcification and ectasia of the thoracic aorta. Bones/joints: Osteopenia and degenerative change. XR/XR chest 1V portable [id number] IMPRESSION: 1. Asymmetric left basilar airspace/pleural disease obscuring the inferior left heart border left hemidiaphragm. 2. Interval removal of previously visualized left pleural catheter with mild residual left pleural air.
--- NOTE | 2020-03-19 21:35 | P.EN_ITS ---
Event Note Event Note: Per discussion with Dr Young CT was dislodged and is not only in subcutaneous tissue. He requested that it be removed entirely. Discussed with patient who verbalized uderstanding and agreement. Two sutures removed and discarted. Surrounding area cleaned with chloraprep. Chest tube pulled without c omplication and dressing placed with underlying petroleum gauze. Covered with adhesive tape. Patient denied any shortness of breath or other discomfort. Saturating in low low-mid 90s. No change in HR. Ordered follow up CXR.
[2020-03-20] VITALS (31 sets, daily range): BP systolic 104–162; BP diastolic 62–102; PULSE 86–130; RESP 12–34; TEMP 36.1–36.8; O2SAT 91–98
[2020-03-20] MEDS: guaiFENesin 600 mg Tablet 1200 MG PO ×2 (03:02→14:31)
[2020-03-20] MEDS: piperacillin-tazobactam 3.375 GM in sodium chloride 0.9% (plus) 50 ML IV ×3 (03:04→21:35)
[2020-03-20] MEDS: ipratropium-albuterol 3 mL Neb INHALATION ×4 (03:19→20:06)
--- NOTE | 2020-03-20 04:51 | PC.NURSE ---
chest tube was pulled by Dr. Brenner, patient is to have CV surgeon see him in am per Dr. Hoover. patient is resting comfortably on nasal canula . VS stable at this time.
[2020-03-20 05:05] LABS: Basophils % 0.1 %; Eosinophils % 0.1 %; Hematocrit 39.9 % (42.0-52.0); Hemoglobin 12.4 g/dL (11.7-16.6); Lymphocytes % 5.4 %; Mean Corpuscular HGB Conc 31.1 g/dL (30.0-36.0); Mean Corpuscular Hemoglobin 27.1 pg (28.0-34.0); Mean Corpuscular Volume 87.3 fL (80-94); Mean Platelet Volume 9.3 fL (7.4-10.4); Monocytes # 1.3 10^3/uL (0.2-0.9); Monocytes % 6.8 %; Neutrophils # 16.72 10^3/uL (1.8-7.7); Nucleated Red Blood Cells % 0 %; Platelet Count 351 10^3/cmm (130-400); Red Blood Count 4.57 10^6/uL (4.1-5.3); Red Cell Distribution Width 13.7 % (12.1-15.1); White Blood Count 19.2 10^3/uL (4.0-10.0)
[2020-03-20 05:24] LABS: Alanine Aminotransferase 36 U/L (0-41); Albumin Level 2.8 g/dL (3.5-5.2); Alkaline Phosphatase 93 IU/L (40-130); Anion Gap 11.9 (5-19); Aspartate Amino Transferase 41 U/L (0-40); Blood Urea Nitrogen 15 mg/dL (8-23); Calcium 7.7 mg/dL (8.5-10.5); Carbon Dioxide 29 mmol/L (22-29); Chloride 96 mmol/L (98-107); Globulin 3.7 g/dL (1.3-4.6); Glucose 152 mg/dL (65-115); Osmolality Calculated 275 mOsm/kg (285-295); Potassium 3.9 mmol/L (3.5-5.1); Sodium 133 mmol/L (136-145); Total Bilirubin 0.4 mg/dL (0.15-1.2); Total Protein 6.5 g/dL (6.6-8.7)
[2020-03-20] MEDS: fentaNYL 50 mcg Patch 1 PATCH TRANSDERMA (08:25)
[2020-03-20] MEDS: predniSONE 10 mg Tablet PO (09:35)
[2020-03-20] MEDS: dilTIAZem 60 mg Tablet PO ×4 (09:35→21:34)
[2020-03-20] MEDS: aspirin 81 mg EC Tablet PO (09:35)
[2020-03-20] MEDS: polyethylene glycol 3350 Pkt 17 gm PO (09:36)
--- NOTE | 2020-03-20 11:19 | ECG_ITS ---
[facility] Test Date: 2020-03-20 Pat Name: Robby Crowder Department: Room: 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 Measurements Intervals Reagan Rate: 92 P: [place]: -1 QRS: -50 QRSD: 136 T: 24 QT: 352 QTc: 436 Interpretive Statements ATRIAL fib INTRAVENTRICULAR CONDUCTION DELAY [130+ ms QRS DURATION] Compared to ECG 03/17/2020 15:11:47 No significant changes Electronically Signed On 03-20-2020 22:06:15 CDT by Allison Suarez M.D. [email or web address]
--- NOTE | 2020-03-20 13:00 | PM.PN ---
Subjective Subjective: Interval history: overnight chest tube removed as on CT was noted to be dislodged, awaiting further pulm assessment for drainage. Missed cardizem dose overnight for unclear reason, HR this am 120s, however better controlled after cardizem Medications: Reviewed: Yes Vitals/I&O/Wt Last Vital Signs Temp 981 F H 03/20/20 04:00 Pulse 123 H 03/20/20 08:09 Resp 16 03/20/20 08:09 BP 126/98 03/20/20 06:00 Pulse Ox 93 03/20/20 08:09 03/19/20 03/20/20 03/20/20 22:59 06:59 14:59 Intake Total 1248 / 2309.083 170 / 2479.083 300 / 300 Output Total 2049 / 2049 200 / 2250 Balance -802 / 259.083 -30 / 229.083 300 / 300 Weight last 48 hrs Weight 119.204 kg Physical Exam Narrative: EXAM NARRATIVE: GEN: Awake, alert and oriented, no acute distress CVS: S1S2 RS: reduced air entry left lung Abd: Soft, nt/nd , bs+ PRIVATE SECRETARY: no focal neuro deficits Urinary Catheter Management^: Gomez: Cath Placed During This Visit: yes Reason for Continuing Indwelling Catheter: Acute Urinary Retention or Obstruction Urinary Catheter Date of Insertion: 03/16/20 Urinary Catheter Time of Insertion: 19:15 Data : 03/20/20 04:15 03/20/20 04:15 Micro: Microbiology 03/17/20 18:15 Gram Stain - Final Pleural Fluid Anaerobic Culture - Preliminary Body Fluid Culture - Preliminary 03/17/20 18:15 Mycobacterial Smear - Preliminary Body Fluids - Pleura 03/17/20 11:00 Gram Stain - Final Sputum - Expectorated Sputum Sputum Culture - Final A&P Assessment and plan (1) Sepsis: Status: Acute Qualifiers: Sepsis type: sepsis due to unspecified organism Sepsis acute organ dysfunction status: without acute organ dysfunction Qualified Code(s): A41.9 - Sepsis, unspecified organism (2) Pleural effusion: Status: Acute (3) Atrial fibrillation and flutter: Status: Acute (4) Sleep apnea: Status: Chronic Qualifiers: Sleep apnea type: unspecified type Qualified Code(s): G47.30 - Sleep apnea, unspecified (5) COPD (chronic obstructive pulmonary disease): Status: Acute Qualifiers: COPD type: unspecified COPD Qualified Code(s): J44.9 - Chronic obstructive pulmonary disease, unspecified (6) T2DM (type 2 diabetes mellitus): Status: Acute Qualifiers: Diabetes mellitus correction insulin use: without adjunct faculty for medical terminology use Diabetes mellitus complication status: without complication Qualified Code(s): E11.9 - Type 2 diabetes mellitus without complications (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 Sepsis: meets criteria with tachycardia, tachypnea , leukocytosis 2. Acute hypoxic respiratory failure, secondary to complex left parapneumonic effusion. 3. Partially loculated pleural effusion left side,exudative, likely parapneumonic effusion No mandy empyema noted, however given abundant neutrophils seen on Gram stain and pathology, fluid WBC count greater than 10,000 mostly PMN hours, loculated appearance of the fluid, LDH from the pleural fluid greater than 3 times the serum value, the effusion does lie on the spectrum of complicated parapneumonic effusion. Drainage catheter has been placed on March 17, however removed night of 03/19 as noted to be dislodged. Trial of intrapleural TPA 03/19 try to break down some of the loculations, however no gross change. Trying to maximize conservative measures prior to any surgical modalities such as VATS given patient's advanced stage of cancer and 84 years of age and as such a high risk of morbidity with any surgical procedure. CT surgery consult to assess for feasibility of other options for drainage. Pleural fluid cultures are negative thus far, however not unexpected from stage I to stage II effusions. Sputum culture with normal respiratory jimmy. Leukocytosis trended up, however more likely to be related to pleural instillation of tPA vs poor drainage- less likely antibiotic failure. Broadening coverage at this point unlikely to be of benefit in the absence of source control by way of adequate drainage. Continue Zosyn , s/p azithromycin 1500mg. Continue vancomycin. Okay for trough to be between 8-15 empirically. If pleural fluid cultures continue to be negative, will aim to discontinue vancomycin and continue Zosyn alone. At time of discharge, suspect that patient is going to need at least 2 to 3 weeks of antibiotic regimen, of course depending on how much drainage we have been able to establish by that time. Follow fluid cx Cytology without malignant cells negative urine bacterial antigen and legionella antigen MRSA nasal PCR screen negative Sputum cx and gram stain normal respiratory jimmy. Appreciate thoracentesis, partially loculaed effusion remains, Less likely to be opprotunistic fungal infection given low dose steroids and no gross prolonged neutropenia or leukopenia on labs. CASSANDRA prep negative, cx pending. AG/GM and BDG pending. 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 Atrial flutter, new per history, may be 2/2 underlying pneumonia vs effusion as a result of sepsis serial troponin without significant delta echocardiogram ordered intermittently between sinus rhythm and A fib off cardizem infusion, continue 60mg po q6h hold off on a/c decisions for now as possible procedures 5. HTN: hold Imdur for now, BP currently well controlled 6. prostate ca with mets to bone, pleural fluid cytology negative , continue prednisone 10mg qd Continue daily casodex Full code Dvt ppx: lovenox Attestations Medical Necessity Statement*: needs optimization of drainage of effusion and iv antibiotics Coding Level of Care Code Acute Residential Program Worker for Chg Fwd Diagnoses Sepsis A41.9 Sepsis type: sepsis due to unspecified organism Sepsis acute organ dysfunction status: without acute organ dysfunction Pleural effusion J90 Atrial fibrillation and flutter I48.91; I48.92 Sleep apnea G47.30 Sleep apnea type: unspecified type COPD (chronic obstructive pulmonary disease) J44.9 COPD type: unspecified COPD T2DM (type 2 diabetes mellitus) E11.9 Diabetes mellitus adjunct faculty for medical terminology insulin use: without adjunct faculty for medical terminology use Diabetes mellitus complication status: without complication Prostate cancer metastatic to bone C61; C79.51
--- NOTE | 2020-03-20 13:15 | PM.PN ---
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 On admisson- CTA chest negative for PE, however with left sided well circumscribed pleural effusion with atelactasis +/- underlying consolidation. s/p 14 fr chest tube 03/17/2020 - 03/19/2020 - 700 cc straw colored fluid - wbc predominant, cytology negative for malignancy. wbc 19K; no fever spikes, pt saturating well on 4L Nc, not in acute respiratory distress. Overnight CT revealed - Chest tube dislodged out of pleural cavity; later sutures removed and pull out entirely. Pt. today morning clinically stable, Vitals/I&O/Wt Last Vital Signs Temp 981 F H 03/20/20 04:00 Pulse 123 H 03/20/20 08:09 Resp 16 03/20/20 08:09 BP 126/98 03/20/20 06:00 Pulse Ox 93 03/20/20 08:09 03/19/20 03/20/20 03/20/20 22:59 06:59 14:59 Intake Total 1248 / 2309.083 170 / 2479.083 300 / 300 Output Total 2049 / 2049 200 / 2250 Balance -802 / 259.083 -30 / 229.083 300 / 300 Weight last 48 hrs Weight 262 lb 12.8 oz Physical Exam Narrative: EXAM NARRATIVE: General: GEN: Awake, alert and oriented, no acute distress NECK: Supple CVS: S1S2 N RS: Reduced air entry left side; Abd: Soft, nt/nd , bs+ INVENTORY CONTROLLER: no focal neuro deficits Urinary Catheter Management^: Gomez: Cath Placed During This Visit: yes Reason for Continuing Indwelling Catheter: Acute Urinary Retention or Obstruction Urinary Catheter Date of Insertion: 03/16/20 Urinary Catheter Time of Insertion: 19:15 Data : 03/20/20 04:15 03/20/20 04:15 Micro: Microbiology 03/17/20 18:15 Gram Stain - Final Pleural Fluid Anaerobic Culture - Preliminary Body Fluid Culture - Preliminary 03/17/20 18:15 Mycobacterial Smear - Preliminary Body Fluids - Pleura 03/17/20 11:00 Gram Stain - Final Sputum - Expectorated Sputum Sputum Culture - Final A&P Assessment and plan (1) Pleural effusion: Status: Acute (2) Sepsis: Status: Acute Qualifiers: Sepsis type: sepsis due to unspecified organism Sepsis acute organ dysfunction status: without acute organ dysfunction Qualified Code(s): A41.9 - Sepsis, unspecified organism (3) COPD (chronic obstructive pulmonary disease): Status: Acute Qualifiers: COPD type: unspecified COPD Qualified Code(s): J44.9 - Chronic obstructive pulmonary disease, unspecified (4) Sleep apnea: Status: Chronic Qualifiers: Sleep apnea type: unspecified type Qualified Code(s): G47.30 - Sleep apnea, unspecified (5) Atrial fibrillation and flutter: Status: Acute Additional A&P Information # Acute hypoxic respiratory failure, likely secondary to loculated left pleural effusion - infectious vs Malignancy # Sepsis likely due to Pneumonia # Afib RVR CT chest: 03/16/20: Partially loculated pleural effusion left side; Currently on 5L O2 S/p left side throracentesis 03/17 - 700 cc - CXR still has effusion likely tube in one loculation. Labs suggest fluid likely infectious - but negative for malignancy- Pt. is clinically stable and wbc trending down, no fevers noted. 03/18: flushed with NS and was left underwater suction - Overnight additional 20 cc drained; Repeat CXR no change 03/19: Instilled 10 mg tpa into chest tube in am, initially could not push, then pulled CT 3 cm and tpa was instilled smoothly. Later pt. was allowed to changed positions and later had session of physical therapy. Evening repeat CT showed chest tube out of pleural cavity and tip in subcutaneous tissue. Later in the night chest tube taken out. Bedside ultrasound - small pocket seen more posteriorly Spoke to Dr. Savage for recommendations - awaiting Encouraged Pulm toileting;Incentive spirometry; Continue AntibioticsVanc & Zosyn as per primary and adjust based on culture sensitivity. Follow up pleural fluid cultures - Preliminary COVID 19 testing- negative # COPD Pt does not remember having PFTs but uses occasional inhalers given by his PCP reported 40 years of 1-2 packs smoking history - quit many years ago Continue Duoneb nebs q 6 hr dominick PFTs as out patient # MORGAN - Reports he was diagnosed with MORGAN after sleep study but does not use CPAP/BiPAP - PSG as out patient once clinically stable - Would hold BiPAP due to concern for hydropneumothorax #Rest of the management as per primary team Clinical condition and plan of care explained in detail to the patient. He verbalized understanding and agreed with the plan of care. Total time spent ~ 20 min including reviewing labs, imaging, > 50% spent counselling paient Attestations Medical Necessity Statement*: left pleural effusion Coding Level of Care Code Established Pt Acute Pharmacy Informatics Specialist for Chg Fwd Patient Type Established History Problem Focused Exam Expanded Problem Focused Medical Decision Making Moderate Complexity Diagnoses Pleural effusion J90 Sepsis A41.9 Sepsis type: sepsis due to unspecified organism Sepsis acute organ dysfunction status: without acute organ dysfunction COPD (chronic obstructive pulmonary disease) J44.9 COPD type: unspecified COPD Sleep apnea G47.30 Sleep apnea type: unspecified type Atrial fibrillation and flutter I48.91; I48.92 Time Spent (min) 20
--- NOTE | 2020-03-20 15:36 | PC.OT ---
OT tx attempted. Nursing request to hold therapy services at this time as pt awaiting surgeon consult.
--- NOTE | 2020-03-20 17:35 | PC.NURSE ---
P[place] ESTABLISHED OF [id number]
[2020-03-20] MEDS: gabapentin 100 mg Capsule PO (21:32)
[2020-03-21] VITALS (32 sets, daily range): BP systolic 103–162; BP diastolic 58–105; PULSE 46–128; RESP 10–27; TEMP 36.5–36.9; O2SAT 90–98
[2020-03-21] MEDS: guaiFENesin 600 mg Tablet 1200 MG PO ×2 (01:14→14:47)
[2020-03-21] MEDS: ipratropium-albuterol 3 mL Neb INHALATION ×4 (02:47→20:30)
[2020-03-21] MEDS: piperacillin-tazobactam 3.375 GM in sodium chloride 0.9% (plus) 50 ML IV ×3 (04:20→21:22)
[2020-03-21 04:56] LABS: Basophils % 0.1 %; Eosinophils % 0.1 %; Hematocrit 41.4 % (42.0-52.0); Hemoglobin 12.9 g/dL (11.7-16.6); Lymphocytes % 5.9 %; Mean Corpuscular HGB Conc 31.2 g/dL (30.0-36.0); Mean Corpuscular Hemoglobin 27.3 pg (28.0-34.0); Mean Corpuscular Volume 87.7 fL (80-94); Monocytes # 1.4 10^3/uL (0.2-0.9); Monocytes % 8.3 %; Neutrophils # 14.19 10^3/uL (1.8-7.7); Neutrophils % 85.1 %; Nucleated Red Blood Cells % 0 %; Platelet Count 363 10^3/cmm (130-400); Red Blood Count 4.72 10^6/uL (4.1-5.3); Red Cell Distribution Width 13.5 % (12.1-15.1); White Blood Count 16.7 10^3/uL (4.0-10.0)
[2020-03-21] MEDS: tamsulosin 0.4 mg Capsule PO (05:24)
[2020-03-21 06:53] LABS: Alanine Aminotransferase 41 U/L (0-41); Albumin Level 2.8 g/dL (3.5-5.2); Alkaline Phosphatase 83 IU/L (40-130); Anion Gap 12.9 (5-19); Aspartate Amino Transferase 51 U/L (0-40); Blood Urea Nitrogen 14 mg/dL (8-23); Carbon Dioxide 30 mmol/L (22-29); Chloride 96 mmol/L (98-107); Globulin 3.9 g/dL (1.3-4.6); Glucose 163 mg/dL (65-115); Osmolality Calculated 280 mOsm/kg (285-295); Potassium 3.9 mmol/L (3.5-5.1); Sodium 135 mmol/L (136-145); Total Bilirubin 0.7 mg/dL (0.15-1.2); Total Protein 6.7 g/dL (6.6-8.7)
--- NOTE | 2020-03-21 07:04 | PM.CONSULT ---
Providers/Reason For Consult Consulting Physican/Specialty*: Dr. Vitale, cardiothoracic surgery Reason for Consult*: Loculated left effusion versus early empyema Requesting Physcian: Dr. Young Attending Physician: Ann Marie Altman MD Primary Care Provider: Sunday Rachel MD History of Present Illness History of Present Illness Robby Crowder is a 84 year old male whom I been consulted on concerning a loculated left effusion versus early empyema. He was admitted on September 16 with complaints of left-sided chest discomfort which appeared to be pleuritic in nature. This is been present for about 2 months. Incidentally, he developed what was felt to be SVT upon travel to the ER by EMS and was administered adenosine and then placed on a Cardizem infusion. Initial CT scan upon arrival was negative for pulmonary embolism but there was a left-sided well-circumscribed pleural effusion with atelectasis associate with this. His initial white count was over 20,000. Subsequent, pulmonary medicine was consulted and Dr. Young placed a 14 Turkmen tube on March 16. Apparently, he recovered about 750 cc over the first 24 hours. He described the fluid as straw-colored. Patient white count slowly improved with pulmonary toilet and with drainage of the effusion. Subcu plans were for TPA placement which was done, no apparently the tube became dislodged into the subcutaneous tissues so therefore any results of the TPA cannot be adequately drained due to inadvertent dislodgment of the tube. I have been consulted to assess whether surgical drainage should be undertaken. Review of Systems Const: Denies: fever(s), chills, change in appetite, change in weight, fatigue or night sweats Eyes: Denies: change in vision or blurry vision ENMT: Denies: odynophagia or hoarseness Card: Denies: chest pain, palpitations, irregular heart rhythm or edema Resp: Denies: dyspnea or productive cough GI: Denies: abdominal pain, nausea, vomiting, dysphagia, heartburn or change in bowel habits : Denies: difficulty urinating, dysuria, urinary frequency, urinary urgency or urinary hesitancy Musc: Denies: extremity pain or extremity swelling Skin/Breast: Denies: rash Neuro: Denies: headache(s), numbness in extremities, weakness in extremities or sensory changes Psych: Denies: anxiety, depression or change in appetite Endo: Denies: polyuria, polydipsia or cold intolerance Ko/Lymph: Denies: easy bruising, easy bleeding, petechiae or enlarged lymph nodes Meds/Allergies Home Medications and Allergies Home Medications Medication Instructions Recorded Confirmed Last Taken Type Prolia See Rx Instructions .ROUTE .COMPLEX 03/16/20 03/16/20 Unknown History Zoladex See Rx Instructions .ROUTE .COMPLEX 03/16/20 03/16/20 Unknown History albuterol sulfate 1 - 2 puff INHALATION Q4H PRN 03/16/20 03/16/20 Unknown History aspirin [Aspir-81] 81 mg PO DAILY 03/16/20 03/16/20 Unknown History bicalutamide 50 mg PO DAILY 03/16/20 03/16/20 Unknown History calcium polycarbophil [FiberCon] 625 mg PO PRN 03/16/20 03/16/20 Unknown History cholecalciferol (vitamin D3) 25 mcg PO DAILY 03/16/20 03/16/20 Unknown History [Vitamin D3] ergocalciferol (vitamin D2) 50,000 unit PO Q30D 03/16/20 03/16/20 03/02/20 History fentanyl 50 mcg TOPICAL Q72H 03/16/20 03/16/20 Unknown History gabapentin 100 mg PO BEDTIME 03/16/20 03/16/20 Unknown History guaifenesin [Mucinex] 1,200 mg PO Q12H 03/16/20 03/16/20 Unknown History isosorbide mononitrate See Rx Instructions .ROUTE .COMPLEX 03/16/20 03/16/20 Unknown History naloxegol [Movantik] 25 mg PO PRN 03/16/20 03/16/20 Unknown History olmesartan 20 mg PO DAILY 03/16/20 03/16/20 Unknown History oxycodone 10 mg PO Q4H PRN 03/16/20 03/16/20 03/16/20 History polyethylene glycol 3350 [Miralax] 17 g PO DAILY 03/16/20 03/16/20 Unknown History prednisone 10 mg PO DAILY 03/16/20 03/16/20 03/15/20 History tamsulosin 0.4 mg PO QAM 03/16/20 03/16/20 Unknown History Allergies Allergy/AdvReac Type Severity Reaction Status Date / Time No Known Allergies Allergy Verified 03/16/20 11:53 Current Medications Current Medications Generic Name Dose Route Start Last Admin Trade Name Freq PRN Reason Stop Dose Admin Albuterol/Ipratropium 3 ml 03/18/20 15:00 03/21/20 02:47 Duoneb INHALATION 3 ml Q6H.RESPIRATORY LAISHA Administration Aspirin 81 mg 03/17/20 09:00 03/20/20 09:35 Aspirin Ec PO 81 mg DAILY LAISHA Administration Bicalutamide 50 mg 03/17/20 09:00 03/20/20 09:41 Casodex PO 50 mg DAILY LAISHA Administration Diltiazem HCl 60 mg 03/19/20 13:00 03/20/20 21:34 Cardizem PO 60 mg QID LAISHA Administration Enoxaparin Sodium 40 mg 03/16/20 15:30 03/16/20 16:55 Lovenox SUBCUT 40 mg Q24H LAISHA Administration Fentanyl 1 patch 03/17/20 08:00 03/20/20 08:25 Duragesic 50 Mcg Patch TRANSDERMA 1 patch Q72H LAISHA Administration Gabapentin 100 mg 03/16/20 21:00 03/20/20 21:32 Neurontin PO 100 mg BEDTIME LAISHA Administration Guaifenesin 1,200 mg 03/16/20 14:45 03/21/20 01:14 Mucinex PO 1,200 mg Q12H LAISHA Administration Hydromorphone HCl 4 mg 03/19/20 00:04 03/21/20 01:14 Dilaudid Tab PO 4 mg Q4H PRN Administration PAIN Diltiazem HCl 125 mg/ Sodium 125 mls @ 0 mls/hr 03/16/20 10:45 03/19/20 12:00 Chloride IV 5 mg/hr .Q0M LAISHA 5 mls/hr Titration Protocol Per Protocol Piperacillin Sod/Tazobactam 50 mls @ 12.5 mls/hr 03/16/20 19:30 03/21/20 04:20 Sod 3.375 gm/ Sodium Chloride IV 12.5 mls/hr Q8H LAISHA Administration Protocol As Directed Vancomycin HCl 1,500 mg/ 250 mls @ 166.667 mls/hr 03/17/20 20:00 03/20/20 21:37 Sodium Chloride IV 166.7 mls/hr Q12H LAISHA Administration Protocol Morphine Sulfate 2 mg 03/16/20 14:38 03/16/20 20:55 Morphine IVP 2 mg Q4H PRN Administration SEVERE PAIN Ondansetron HCl 4 mg 03/16/20 14:38 03/18/20 23:31 Zofran IVP 4 mg Q8H PRN Administration vomiting, or N/V if npo Polyethylene Glycol 17 gm 03/17/20 09:00 03/20/20 09:36 Miralax PO 17 gm DAILY LAISHA Administration Prednisone 10 mg 03/17/20 09:00 03/20/20 09:35 Prednisone PO 10 mg DAILY LAISHA Administration Tamsulosin HCl 0.4 mg 03/17/20 06:00 03/21/20 05:24 Flomax PO 0.4 mg QAM LAISHA Administration PFSH Acute PFSH: Medical History COPD (chronic obstructive pulmonary disease) Degenerative arthritis Hyperlipidemia Hypertension Prostate cancer metastatic to bone Sleep apnea T2DM (type 2 diabetes mellitus) Vitals/I&O/Wt Last Vital Signs Temp 97.8 F 03/21/20 03:00 Pulse 81 03/21/20 05:00 Resp 15 03/21/20 05:00 BP 156/71 03/21/20 05:00 Pulse Ox 94 03/21/20 05:00 03/20/20 03/21/20 03/21/20 22:59 06:59 14:59 Intake Total 648 / 1184 290 / 1474 Output Total 1000 / 1950 300 / 2250 Balance -352 / -766 -10 / -776 Physical Exam Neck/C-Spine: COMMON NORMALS: no lymphadenopathy and supple GENERAL: Yes normal visual inspection CAROTIDS: No Carotid tenderness present Chest: COMMONS NORMALS: normal palpation of entire chest wall CHEST: Yes Symmetrical chest wall rise Resp: EFFORT & INSPECTION: Yes prolonged expiratory phase AUSCULTATION: bronchial breath sounds on the left (posterior) Cardio: COMMON NORMALS: S1 normal heart sound present RHYTHM: abnormal rhythm HEART SOUNDS: S1 normal heart sound present GI: COMMON NORMALS: Normal to inspection, nondistended, normoactive bowel sounds present and Soft to palpation PALPATION: Yes Soft to palpation Extremity: OTHER: 1+ peripheral edema Urinary Catheter Management^: Gomez: Cath Placed During This Visit: yes Reason for Continuing Indwelling Catheter: Acute Urinary Retention or Obstruction Urinary Catheter Date of Insertion: 03/16/20 Urinary Catheter Time of Insertion: 19:15 Data Micro: Micro: Microbiology 03/17/20 18:15 Gram Stain - Final Pleural Fluid Anaerobic Culture - Preliminary Body Fluid Culture - Preliminary A&P Assessment and plan (1) Pleural effusion: 84-year-old gentleman with stage IV metastatic prostate carcinoma and loculated effusion versus early empyema left lower hemithorax status post drain placement per pulmonary medicine with septa became dislodged. I was consulted because of concerns of empyema. I have personally reviewed the recent CT scan and chest x-ray. This is an isolated and relatively small fluid collection with some enhancement on recent CT scan. Given the gentleman's advanced age, COPD, obesity, and metastatic prostate cancer, I would recommend initial evaluation by radiology to see if they can percutaneously place a drain into the fluid collection. Upon my review of the CT scan it appears that may be able to posteriorly approach this, but obviously this is at their discretion. At this time, I think that a limited thoracotomy to drain this area would be substantially morbid in this obese elderly gentleman with metastatic carcinoma. Of course however, if they are unable to place a drain we could consider this approach though I would expect there would be substantial morbidity from this and would certainly resulted in a stormy postop course. Status: Acute Consult Attestations Medical Necessity Statement: Loculated pleural effusion/empyema Time Spent in Patient Care: 16 - 35 minutes Coding Level of Care Code Acute Life Skills Coordinator Volunteer for Panda Tenorio Diagnoses Pleural effusion J90
[2020-03-21] MEDS: ondansetron 2 mg/ML SDV 2 mL 4 MG IVP (07:47)
--- NOTE | 2020-03-21 08:00 | PC.NURSE ---
0.5 mL of Morphine was wasted in med room, and witnessed by Mohan Abdalla RN. Patient has sitter in room. Charo pushed over 5 mins, and reassessed with a pain rating of 5. She is laying in bed, with lights off and TV playing. Room visible from Nurses station. Will reassess again, and round in 30 mins unless prompted otherwise.
[2020-03-21] MEDS: aspirin 81 mg EC Tablet PO (08:44)
[2020-03-21] MEDS: dilTIAZem 60 mg Tablet PO ×4 (08:44→20:46)
[2020-03-21] MEDS: predniSONE 10 mg Tablet PO (08:44)
[2020-03-21] MEDS: polyethylene glycol 3350 Pkt 17 gm PO (08:44)
--- NOTE | 2020-03-21 10:59 | PC.SOCIAL ---
IMM Update Pg 2 of IMM updated. Initialed, dated, and timed and placed in chart. Copy provided to patient who verbalized understanding.
--- NOTE | 2020-03-21 11:04 | PM.PN ---
Subjective Subjective: Interval history: subjectively improved today, in better spirits, slept well this morning. WBC trending down to 16. 02 requirement at 4lpm, afberile. HR much better controlled today, continues in A fib. 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 Urinary Catheter Management^: Gomez: Cath Placed During This Visit: yes Reason for Continuing Indwelling Catheter: Acute Urinary Retention or Obstruction Urinary Catheter Date of Insertion: 03/16/20 Urinary Catheter Time of Insertion: 19:15 Data : 03/21/20 04:23 03/21/20 04:23 Micro: Microbiology 03/17/20 18:15 Gram Stain - Final Pleural Fluid Anaerobic Culture - Preliminary Body Fluid Culture - Preliminary A&P Assessment and plan (1) Sepsis: Status: Acute Qualifiers: Sepsis type: sepsis due to unspecified organism Sepsis acute organ dysfunction status: without acute organ dysfunction Qualified Code(s): A41.9 - Sepsis, unspecified organism (2) Pleural effusion: Status: Acute (3) Atrial fibrillation and flutter: Status: Acute (4) Sleep apnea: Status: Chronic Qualifiers: Sleep apnea type: unspecified type Qualified Code(s): G47.30 - Sleep apnea, unspecified (5) COPD (chronic obstructive pulmonary disease): Status: Acute Qualifiers: COPD type: unspecified COPD Qualified Code(s): J44.9 - Chronic obstructive pulmonary disease, unspecified (6) T2DM (type 2 diabetes mellitus): Status: Acute Qualifiers: Diabetes mellitus manager marketing communication insulin use: without group home use Diabetes mellitus complication status: without complication Qualified Code(s): E11.9 - Type 2 diabetes mellitus without complications (7) Prostate cancer metastatic to bone: Status: Acute Additional A&P Information 1. Sepsis: meets criteria with tachycardia, tachypnea , leukocytosis 2. Acute hypoxic respiratory failure, secondary to complex left parapneumonic effusion. 3. Partially loculated pleural effusion left side,exudative, likely parapneumonic effusion No mandy empyema noted, however given abundant neutrophils seen on Gram stain and pathology, fluid WBC count greater than 10,000 mostly PMN hours, loculated appearance of the fluid, LDH from the pleural fluid greater than 3 times the serum value, the effusion does lie on the spectrum of complicated parapneumonic effusion. Drainage catheter has been placed on March 17, however removed night of 03/19 as noted to be dislodged. Trial of intrapleural TPA 03/19 try to break down some of the loculations, however effusion still persisting. Per review of images with radiology today, the originally loculated effusion does appear to have reduced in size. Currently most fluid localized in the posterior aspect in a crescentric collection, which makes drainage of this fluid partcularly challenging, even with CT guided drainage. As such, there is a higher risk of pneumothorax/other complications with attempting to drain this fluid. Trying to maximize conservative measures prior to any surgical modalities such as VATS given patient's advanced stage of cancer and 84 years of age and as such a high risk of morbidity with any surgical procedure. Given that patient otherwise appears to be clinically stable to improving, with high risk of procedures as noted above, will plan to treat with a conservative approach which will involve ~3 weeks of empiric iv Pip/tazo, with plan for follow up labs and CT imaging in 2 weeks from now to monitor for improvement. This will be followed up as outpatient with pulmonary team. If patient remains stable with improving CT findings, can discontinue abx course at 3 weeks, else may require further abx and likely reconsideration of surgical drainage. Above plan discussed with patient and daughter in detail, they are agreeable to proceed. Will arrange for PICC line to facilitate above and plan discharge to SNF to complete iv abx course. Pleural fluid cultures are negative thus far, however not unexpected from stage I to stage II effusions. Sputum culture with normal respiratory jimmy. Continue Zosyn empirically, s/p azithromycin 1500mg. Discontinue vancomycin as no evidence of MRSA on cultures. Cytology without malignant cells negative urine bacterial antigen and legionella antigen MRSA nasal PCR screen negative Sputum cx and gram stain normal respiratory jimmy. Appreciate thoracentesis, partially loculaed effusion remains, Less likely to be opprotunistic fungal infection given low dose steroids and no gross prolonged neutropenia or leukopenia on labs. CASSANDRA prep negative. 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 Atrial flutter, new per history, may be 2/2 underlying pneumonia vs effusion as a result of sepsis serial troponin without significant delta echocardiogram reviewed intermittently between sinus rhythm and A fib continue continue 60mg po q6h, rate now controlled Start Lovenox for a/c for now. Will prefer to use this over NOACs at SNF as may require drainage procedures with signs of worsening. NOAcs would delay this by at least 48 hrs if needed 5. HTN: hold Imdur for now, BP currently well controlled 6. prostate ca with mets to bone, pleural fluid cytology negative , continue prednisone 10mg qd Continue daily casodex Full code Dvt ppx: lovenox Attestations Medical Necessity Statement*: Needs Picc line, iv abx, disposition planning and initiation of anticoagulation Coding Level of Care Code Acute Communications Lead for Chg Fwd Diagnoses Sepsis A41.9 Sepsis type: sepsis due to unspecified organism Sepsis acute organ dysfunction status: without acute organ dysfunction Pleural effusion J90 Atrial fibrillation and flutter I48.91; I48.92 Sleep apnea G47.30 Sleep apnea type: unspecified type COPD (chronic obstructive pulmonary disease) J44.9 COPD type: unspecified COPD T2DM (type 2 diabetes mellitus) E11.9 Diabetes mellitus manager marketing communication insulin use: without manager marketing communication use Diabetes mellitus complication status: without complication Prostate cancer metastatic to bone C61; C79.51
--- NOTE | 2020-03-21 13:29 | PC.NURSE ---
awakened easily explained we were trying to let him rest as long as possibly.
[2020-03-21] MEDS: calcium carbonate 500 mg Chew Tablet PO (14:45)
--- NOTE | 2020-03-21 17:10 | PC.NURSE ---
family in. brought do-nuts. diet was to [facility]
--- NOTE | 2020-03-21 18:39 | PC.NURSE ---
WAS UP IN Chair for about 2 hrs. concha. well. fAMILY IN. P.T. AMBULATED PT. TO BATHROOM. NO BM. MOIST NON PROD. COUGH
[2020-03-21] MEDS: gabapentin 100 mg Capsule PO (20:46)
--- NOTE | 2020-03-21 21:00 | PC.NURSE ---
Received report from KENNA Loera. Patient resting comfortably. Vital signs are stable. Bed in lowest position, call light in reach. No concerns at this time.
[2020-03-22] VITALS (28 sets, daily range): BP systolic 112–158; BP diastolic 63–111; PULSE 60–85; RESP 8–21; TEMP 36.7–36.8; O2SAT 92–98
[2020-03-22] MEDS: ipratropium-albuterol 3 mL Neb INHALATION ×3 (02:17→14:32)
[2020-03-22] MEDS: guaiFENesin 600 mg Tablet 1200 MG PO ×2 (02:33→14:29)
--- NOTE | 2020-03-22 03:59 | PC.NURSE ---
Patient requested to ambulate to the bedside commode to attempt bowel movement. Ambulated well with assist. Oxygen saturation dropped to 87% but patient was in no apparent distress. Unable to have bowel movement but passed gas. Ambulated back to bed with one assist without complication. Maintained oxygen saturation at 88% or better while moving back to bed.
[2020-03-22 04:43] LABS: Alanine Aminotransferase 43 U/L (0-41); Alkaline Phosphatase 71 IU/L (40-130); Aspartate Amino Transferase 40 U/L (0-40); Blood Urea Nitrogen 21 mg/dL (8-23); Carbon Dioxide 28 mmol/L (22-29); Chloride 95 mmol/L (98-107); Globulin 3.6 g/dL (1.3-4.6); Glucose 252 mg/dL (65-115); Osmolality Calculated 279 mOsm/kg (285-295); Sodium 132 mmol/L (136-145); Total Bilirubin 0.5 mg/dL (0.15-1.2); Total Protein 6.6 g/dL (6.6-8.7)
[2020-03-22] MEDS: piperacillin-tazobactam 3.375 GM in sodium chloride 0.9% (plus) 50 ML IV ×3 (05:18→21:07)
[2020-03-22] MEDS: tamsulosin 0.4 mg Capsule PO (05:18)
[2020-03-22] MEDS: aspirin 81 mg EC Tablet PO (08:55)
[2020-03-22] MEDS: dilTIAZem 60 mg Tablet PO ×4 (08:55→21:13)
[2020-03-22] MEDS: predniSONE 10 mg Tablet PO (08:55)
[2020-03-22] MEDS: polyethylene glycol 3350 Pkt 17 gm PO (08:55)
--- NOTE | 2020-03-22 11:27 | P.PN_ITS ---
Subjective Subjective: Interval history: Patient reports feeling better this morning. Denies chest pain and reports that his breathing is easier. Denies abdominal pain but does report it being somewhat distended. He had no bowel movement for the last 1 week. Does pass gas. He continues to be in atrial fibrillation. Medications: Reviewed: Yes Vitals/I&O/Wt Last Vital Signs Temp 97.7 F 03/21/20 22:00 Pulse 68 03/22/20 09:00 Resp 17 03/22/20 09:00 BP 117/66 03/22/20 09:00 Pulse Ox 94 03/22/20 08:20 03/21/20 03/22/20 03/22/20 22:59 06:59 14:59 Intake Total 650 / 950 50 / 1000 240 / 240 Output Total 250 / 1050 500 / 1550 275 / 275 Balance 400 / -100 -450 / -550 -35 / -35 Weight last 48 hrs Weight 121.733 kg Physical Exam Const: COMMON NORMALS: no acute distress and patient oriented x3 Resp: COMMON NORMALS: normal respiratory effort OTHER: Decreased left basilar sounds Cardio: COMMON NORMALS: regular rate RATE: regular rate RHYTHM: abnormal rhythm irregularly irregular OTHER: No lower extremity edema GI: COMMON NORMALS: Normal to inspection, nondistended, normoactive bowel sounds present, Soft to palpation and non-tender PALPATION: Yes Soft to palpation Neuro: COMMON NORMALS: patient oriented x3 and no focal motor deficits Urinary Catheter Management^: Gomez: Cath Placed During This Visit: yes, but has since been removed by the nurse Reason for Continuing Indwelling Catheter: Decision to DC Catheter Urinary Catheter Date of Insertion: 03/16/20 Urinary Catheter Time of Insertion: 19:15 Date Urinary Catheter Removed: 03/22/20 Time Urinary Catheter Discontinued: 10:15 Data : 03/21/20 04:23 03/22/20 03:45 Micro: Microbiology 03/17/20 18:15 Fungal Smear - Preliminary Pleural Fluid 03/17/20 18:15 Gram Stain - Final Pleural Fluid Anaerobic Culture - Preliminary Body Fluid Culture - Final 03/16/20 12:30 Blood Culture - Final Blood NO GROWTH AFTER 5 DAYS 03/16/20 12:25 Blood Culture - Final Blood NO GROWTH AFTER 5 DAYS A&P Assessment and plan (1) Sepsis: Improved. Status: Acute Qualifiers: Sepsis type: sepsis due to unspecified organism Sepsis acute organ dysfunction status: without acute organ dysfunction Qualified Code(s): A41.9 - Sepsis, unspecified organism (2) Pleural effusion: Without convincing evidence of empyema. pH 8.0. Cultures are negative so far. Status: Acute (3) Atrial fibrillation and flutter: Status: Acute (4) Sleep apnea: Status: Chronic Qualifiers: Sleep apnea type: unspecified type Qualified Code(s): G47.30 - Sleep apnea, unspecified (5) COPD (chronic obstructive pulmonary disease): Currently not in exacerbation. 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 Sepsis: meets criteria with tachycardia, tachypnea , leukocytosis 2. Acute hypoxic respiratory failure, secondary to complex left parapneumonic effusion. Suspected to be related to malignancy. 3. Partially loculated pleural effusion left side,exudative, likely parapneumo pallavi versus malignancy related effusion No mandy empyema noted, however given abundant neutrophils seen on Gram stain and pathology, fluid WBC count greater than 10,000 mostly PMN hours, loculated appearance of the fluid, LDH from the pleural fluid greater than 3 times the serum value, the effusion does lie on the spectrum of complicated parapneumonic effusion. Drainage catheter has been placed on March 17, however removed night of 03/19 as noted to be dislodged. Trial of intrapleural TPA 03/19 try to break down some of the loculations, however effusion still persisting. Per review of images with radiology today, the originally loculated effusion does appear to have reduced in size. Currently most fluid localized in the posterior aspect in a crescentric collection, which makes drainage of this fluid partcularly challenging, even with CT guided drainage. As such, there is a higher risk of pneumothorax/other complications with attempting to drain this fluid. Trying to maximize conservative measures prior to any surgical modalities such as VATS given patient's advanced stage of cancer and 84 years of age and as such a high risk of morbidity with any surgical procedure. Given that patient otherwise appears to be clinically stable to improving, with high risk of procedures as noted above, will plan to treat with a conservative approach which will involve ~3 weeks of empiric iv Pip/tazo, with plan for follow up labs and CT imaging in 2 weeks from now to monitor for improvement. This will be followed up as outpatient with pulmonary team. If patient remains stable with improving CT findings, can discontinue abx course at 3 weeks, else may require further abx and likely reconsideration of surgical drainage. Above plan discussed with patient and daughter in detail, they are agreeable to proceed. Will arrange for PICC line to facilitate above and plan discharge to SNF to complete iv abx course. Pleural fluid cultures are negative thus far, however not unexpected from stage I to stage II effusions. Sputum culture with normal respiratory jimmy. Continue Zosyn empirically, s/p azithromycin 1500mg. Discontinue vancomycin as no evidence of MRSA on cultures. Cytology without malignant cells negative urine bacterial antigen and legionella antigen MRSA nasal PCR screen negative Sputum cx and gram stain normal respiratory jimmy. Appreciate thoracentesis, partially loculaed effusion remains, Less likely to be opprotunistic fungal infection given low dose steroids and no gross prolonged neutropenia or leukopenia on labs. CASSANDRA prep negative. 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 Atrial fibrillation/flutter, new per history, may be 2/2 underlying pneumonia vs effusion as a result of sepsis serial troponin without significant delta echocardiogram reviewed intermittently between sinus rhythm and A fib continue continue 60mg po q6h, rate now controlled Start Lovenox for a/c for now. Will prefer to use this over NOACs at SNF as may require drainage procedures with signs of worsening. NOAcs would delay this by at least 48 hrs if needed 5. HTN: hold Imdur for now, BP currently well controlled 6. prostate ca with mets to bone, pleural fluid cytology negative , continue prednisone 10mg qd Continue daily casodex PLAN: Patient's effusion appears to be malignancy versus parapneumonic without evidence for empyema. Patient denies any difficulty swallowing. Remove Gomez catheter and continue with physical therapy. Plan was to place PICC line for IV Zosyn for several weeks and outpatient follow-up with pulmonary service. Patient reports using oxygen at home for long period of time but does not know how many liters. Awaiting placement to residential facility. Will switch anticoagulation to Eliquis for stroke prevention as I doubt patient will need to have urgent chest tube placement. Will obtain echocardiogram for further evaluation and continue medical management but otherwise will avoid any other aggressive intervention/evaluation. I think it is safe to transfer patient to [facility]. Full code Dvt ppx: Elieser Attestations Medical Necessity Statement*: Patient with complex pleural effusion requires close inpatient monitoring and treatment until placement to residential facility is arranged. 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
--- NOTE | 2020-03-22 11:48 | XR_ITS ---
WS: [id number] PORTABLE CHEST HISTORY: picc placement COMPARISON: 03/19/2020 Right-sided PICC line has been placed with tip in the mid SVC. No complications. Lungs are significantly obscured by rotation. Moderate LEFT and small RIGHT pleural effusions. Cardiac size: Obscured. Mediastinum/Aorta: Mild atherosclerosis aorta. No osseous abnormality seen. XR/XR chest 1V portable [id number] IMPRESSION: 1. RIGHT PICC line with tip in the mid SVC. 2. No complications.
--- NOTE | 2020-03-22 14:17 | PC.NURSE ---
Transfer This nurse transferred patient by wheelchair to [facility] at 1340. All belongings were with patient and this nurse was met by [facility] staff in the patients room.
[2020-03-22] MEDS: apixaban 5 mg Tablet PO (18:55)
[2020-03-22] MEDS: gabapentin 100 mg Capsule PO (21:07)
[2020-03-23] VITALS (13 sets, daily range): BP systolic 120–159; BP diastolic 58–80; PULSE 55–76; RESP 17–22; TEMP 36.1–36.8; O2SAT 92–98
[2020-03-23] MEDS: ipratropium-albuterol 3 mL Neb INHALATION ×4 (01:24→20:46)
[2020-03-23] MEDS: guaiFENesin 600 mg Tablet 1200 MG PO (03:41)
[2020-03-23 04:24] LABS: Basophils % 0.2 %; Eosinophils # 0.1 10^3/uL (0.0-0.8); Eosinophils % 0.3 %; Hemoglobin 12.3 g/dL (11.7-16.6); Lymphocytes # 1.1 10^3/uL (0.8-4.8); Lymphocytes % 7.4 %; Mean Corpuscular Hemoglobin 26.7 pg (28.0-34.0); Mean Corpuscular Volume 89.1 fL (80-94); Monocytes # 0.8 10^3/uL (0.2-0.9); Monocytes % 5.5 %; Neutrophils # 12.94 10^3/uL (1.8-7.7); Neutrophils % 85.9 %; Nucleated Red Blood Cells % 0 %; Platelet Count 411 10^3/cmm (130-400); Red Cell Distribution Width 13.9 % (12.1-15.1); White Blood Count 15.1 10^3/uL (4.0-10.0)
[2020-03-23 04:37] LABS: Alanine Aminotransferase 37 U/L (0-41); Albumin Level 3.1 g/dL (3.5-5.2); Alkaline Phosphatase 65 IU/L (40-130); Anion Gap 12.3 (5-19); Aspartate Amino Transferase 31 U/L (0-40); Blood Urea Nitrogen 22 mg/dL (8-23); Calcium 8.8 mg/dL (8.5-10.5); Carbon Dioxide 31 mmol/L (22-29); Chloride 95 mmol/L (98-107); Globulin 3.6 g/dL (1.3-4.6); Glucose 129 mg/dL (65-115); Osmolality Calculated 276 mOsm/kg (285-295); Potassium 4.3 mmol/L (3.5-5.1); Sodium 134 mmol/L (136-145); Total Bilirubin 0.4 mg/dL (0.15-1.2); Total Protein 6.7 g/dL (6.6-8.7)
[2020-03-23] MEDS: tamsulosin 0.4 mg Capsule PO (05:13)
[2020-03-23] MEDS: piperacillin-tazobactam 3.375 GM in sodium chloride 0.9% (plus) 50 ML IV ×3 (05:13→20:45)
[2020-03-23] MEDS: fentaNYL 50 mcg Patch 1 PATCH TRANSDERMA (08:34)
[2020-03-23] MEDS: apixaban 5 mg Tablet PO (08:37)
[2020-03-23] MEDS: predniSONE 10 mg Tablet PO (08:37)
[2020-03-23] MEDS: aspirin 81 mg EC Tablet PO (08:37)
[2020-03-23] MEDS: polyethylene glycol 3350 Pkt 17 gm PO (08:38)
[2020-03-23] MEDS: dilTIAZem 60 mg Tablet PO ×4 (08:41→20:45)
--- NOTE | 2020-03-23 13:34 | P.PN_ITS ---
Subjective Subjective: Interval history: Patient reports feeling okay this morning and wants to go home. He clinically appears to be in more dyspnea than yesterday. He denies chest pain or abdominal pain. I have discussed with patient and recommended to stay to have Crane drain placed as I suspect that patient's pleural effusion is likely related to malignancy and I think it will continue to accumulate. Patient absolutely refused and reports that he is going home at 4 PM whenever his family comes to pick him up. Case was discussed with daughter Carmen over the phone who says that she will talk to her father and make sure he stays to get Crane drain placed. Medications: Reviewed: Yes Vitals/I&O/Wt Last Vital Signs Temp 97.7 F 03/23/20 11:04 Pulse 76 03/23/20 11:04 Resp 20 H 03/23/20 11:04 BP 152/76 03/23/20 11:04 Pulse Ox 94 03/23/20 11:04 03/22/20 03/23/20 03/23/20 22:59 06:59 14:59 Intake Total 290 / 580 50 / 630 170 / 170 Output Total 600 / 875 250 / 1125 100 / 100 Balance -310 / -295 -200 / -495 70 / 70 Weight last 48 hrs Weight 120.882 kg Weight 121.733 kg Physical Exam Const: COMMON NORMALS: no acute distress and patient oriented x3 Resp: COMMON NORMALS: normal respiratory effort OTHER: Significantly decreased left basilar sounds Cardio: COMMON NORMALS: regular rate RATE: regular rate RHYTHM: abnormal rhythm irregularly irregular OTHER: No lower extremity edema GI: COMMON NORMALS: Normal to inspection, nondistended, normoactive bowel sounds present, Soft to palpation and non-tender PALPATION: Yes Soft to palpation Neuro: COMMON NORMALS: patient oriented x3 and no focal motor deficits Urinary Catheter Management^: Gomez: Cath Placed During This Visit: yes, but has since been removed by the nurse Reason for Continuing Indwelling Catheter: Decision to DC Catheter Urinary Catheter Date of Insertion: 03/16/20 Urinary Catheter Time of Insertion: 19:15 Date Urinary Catheter Removed: 03/22/20 Time Urinary Catheter Discontinued: 10:15 Data : 03/23/20 03:40 03/23/20 03:40 Micro: Microbiology 03/17/20 18:15 Gram Stain - Final Pleural Fluid Anaerobic Culture - Preliminary Body Fluid Culture - Final A&P Assessment and plan (1) Sepsis: Improved. Status: Acute Qualifiers: Sepsis type: sepsis due to unspecified organism Sepsis acute organ dysfunction status: without acute organ dysfunction Qualified Code(s): A41.9 - Sepsis, unspecified organism (2) Pleural effusion: Without convincing evidence of empyema. pH 8.0. Cultures are negative so far. Status: Acute (3) Atrial fibrillation and flutter: Status: Acute (4) Sleep apnea: Status: Chronic Qualifiers: Sleep apnea type: unspecified type Qualified Code(s): G47.30 - Sleep apnea, unspecified (5) COPD (chronic obstructive pulmonary disease): Currently not in exacerbation. 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 Sepsis: meets criteria with tachycardia, tachypnea , leukocytosis 2. Acute hypoxic respiratory failure, secondary to complex left parapneumonic effusion. Suspected to be related to malignancy. 3. Partially loculated pleural effusion left side,exudative, likely parapneumonic versus malignancy related effusion No mandy empyema noted, however given abundant neutrophils seen on Gram stain and pathology, fluid WBC count greater than 10,000 mostly PMN hours, loculated appearance of the fluid, LDH from the pleural fluid greater than 3 times the serum value, the effusion does lie on the spectrum of complicated parapneumonic effusion. Drainage catheter has been placed on March 17, however removed night of 03/19 as noted to be dislodged. Trial of intrapleural TPA 03/19 try to break down some of the loculations, however effusion still persisting. Per review of images with radiology today, the originally loculated effusion does appear to have reduced in size. Currently most fluid localized in the posterior aspect in a crescentric collection, which makes drainage of this fluid partcularly challenging, even with CT guided drainage. As such, there is a higher risk of pneumothorax/other complications with attempting to drain this fluid. Trying to maximize conservative measures prior to any surgical modalities such as VATS given patient's advanced stage of cancer and 84 years of age and as such a high risk of morbidity with any surgical procedure. Given that patient otherwise appears to be clinically stable to improving, with high risk of procedures as noted above, will plan to treat with a conservative approach which will involve ~3 weeks of empiric iv Pip/tazo, with plan for follow up labs and CT imaging in 2 weeks from now to monitor for improvement. This will be followed up as outpatient with pulmonary team. If patient remains stable with improving CT findings, can discontinue abx course at 3 weeks, else may require further abx and likely reconsideration of surgical drainage. Above plan discussed with patient and daughter in detail, they are agreeable to proceed. Will arrange for PICC line to facilitate above and plan discharge to SNF to complete iv abx course. Pleural fluid cultures are negative thus far, however not unexpected from stage I to stage II effusions. Sputum culture with normal respiratory jimmy. Continue Zosyn empirically, s/p azithromycin 1500mg. Discontinue vancomycin as no evidence of MRSA on cultures. Cytology without malignant cells negative urine bacterial antigen and legionella antigen MRSA nasal PCR screen negative Sputum cx and gram stain normal respiratory jimmy. Appreciate thoracentesis, partially loculaed effusion remains, Less likely to be opprotunistic fungal infection given low dose steroids and no gross prolonged neutropenia or leukopenia on labs. CASSANDRA prep negative. 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 Atrial fibrillation/flutter, new per history, may be 2/2 underlying pneumonia vs effusion as a result of sepsis serial troponin without significant delta echocardiogram reviewed intermittently between sinus rhythm and A fib continue continue 60mg po q6h, rate now controlled Start Lovenox for a/c for now. Will prefer to use this over NOACs at SNF as may require drainage procedures with signs of worsening. NOAcs would delay this by at least 48 hrs if needed 5. HTN: hold Imdur for now, BP currently well controlled 6. prostate ca with mets to bone, pleural fluid cytology negative , continue prednisone 10mg qd Continue daily casodex PLAN: Initially plan was for patient to go to nursing facility but he absolutely refused. Will place order for IV antibiotic administration at home. Will discontinue Eliquis and request CT-guided Josesito drain placement for tomorrow morning. This will give enough time for patient's daughter to discuss case with patient. 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
--- NOTE | 2020-03-23 15:08 | P.PN_ITS ---
Subjective Subjective: Interval history: Mr. Crowder has developed some increasing dyspnea related to an enlarging left effusion. Dr. Miguel has conferred with radiology who are not available to place a longstanding pleural drain. I have been requested to place a strain. I have reviewed the most recent chest x-rays and have conferred with Dr. Miguel about the current findings. I have discussed the rationale for this with Mr. Crowder. Vitals/I&O/Wt Last Vital Signs Temp 97.7 F 03/23/20 11:04 Pulse 73 03/23/20 14:21 Resp 22 H 03/23/20 14:11 BP 152/76 03/23/20 11:04 Pulse Ox 97 03/23/20 14:11 03/23/20 03/23/20 03/23/20 06:59 14:59 22:59 Intake Total 50 / 630 170 / 170 Output Total 250 / 1125 100 / 100 Balance -200 / -495 70 / 70 Weight last 48 hrs Weight 266 lb 8 oz Weight 268 lb 6 oz Physical Exam Resp: EFFORT & INSPECTION: Yes abnormal respiratory pattern and Yes tachypneic AUSCULTATION: bronchial breath sounds on the left Cardio: COMMON NORMALS: regular rate and regular rhythm RATE: regular rate RHYTHM: regular rhythm Urinary Catheter Management^: Gomez: Cath Placed During This Visit: yes, but has since been removed by the nurse Reason for Continuing Indwelling Catheter: Decision to DC Catheter Urinary Catheter Date of Insertion: 03/16/20 Urinary Catheter Time of Insertion: 19:15 Date Urinary Catheter Removed: 03/22/20 Time Urinary Catheter Discontinued: 10:15 Data : 03/23/20 03:40 03/23/20 03:40 Micro: Microbiology 03/17/20 18:15 Gram Stain - Final Pleural Fluid Anaerobic Culture - Preliminary Body Fluid Culture - Final A&P Assessment and plan (1) Pleural effusion: Worsening left pleural effusion Plan: We will plan for left pleural Harvey drain placement tomorrow. Hopefully we will find accessible fluid collection given that this will be performed without imaging navigation. If we are unsuccessful, I think we will be obligated to ask radiology to attempt CT directed drainage. Hopefully, with adequate drainage and improvement in respiratory status, he can be discharged home more comfortably. 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
[2020-03-23 16:55] LABS: Aspergillus AG,EIA,Serum NOT DETECTED; Aspergillus Galactomannan Inde <0.50
[2020-03-23] MEDS: gabapentin 100 mg Capsule PO (20:45)
[2020-03-24] VITALS (8 sets, daily range): BP systolic 131–152; BP diastolic 56–70; PULSE 59–74; RESP 16–20; TEMP 35.9–36.6; O2SAT 92–97
[2020-03-24] MEDS: ipratropium-albuterol 3 mL Neb INHALATION ×2 (03:45→08:08)
[2020-03-24 03:50] LABS: Basophils % 0.1 %; Eosinophils # 0.1 10^3/uL (0.0-0.8); Eosinophils % 0.5 %; Hematocrit 37.9 % (42.0-52.0); Hemoglobin 11.6 g/dL (11.7-16.6); Lymphocytes # 1.1 10^3/uL (0.8-4.8); Lymphocytes % 8.7 %; Mean Corpuscular HGB Conc 30.6 g/dL (30.0-36.0); Mean Corpuscular Hemoglobin 27.4 pg (28.0-34.0); Mean Corpuscular Volume 89.4 fL (80-94); Mean Platelet Volume 8.9 fL (7.4-10.4); Monocytes % 8.2 %; Neutrophils # 10.31 10^3/uL (1.8-7.7); Neutrophils % 81.2 %; Nucleated Red Blood Cells % 0 %; Platelet Count 366 10^3/cmm (130-400); Red Blood Count 4.24 10^6/uL (4.1-5.3); Red Cell Distribution Width 14.1 % (12.1-15.1); White Blood Count 12.7 10^3/uL (4.0-10.0)
[2020-03-24 04:20] LABS: Alanine Aminotransferase 30 U/L (0-41); Albumin Level 2.7 g/dL (3.5-5.2); Alkaline Phosphatase 59 IU/L (40-130); Anion Gap 10.1 (5-19); Aspartate Amino Transferase 25 U/L (0-40); Blood Urea Nitrogen 18 mg/dL (8-23); Calcium 8.2 mg/dL (8.5-10.5); Carbon Dioxide 31 mmol/L (22-29); Chloride 97 mmol/L (98-107); Globulin 3.4 g/dL (1.3-4.6); Glucose 122 mg/dL (65-115); Osmolality Calculated 276 mOsm/kg (285-295); Potassium 4.1 mmol/L (3.5-5.1); Sodium 134 mmol/L (136-145); Total Bilirubin 0.4 mg/dL (0.15-1.2); Total Protein 6.1 g/dL (6.6-8.7)
[2020-03-24] MEDS: guaiFENesin 600 mg Tablet 1200 MG PO (05:11)
[2020-03-24] MEDS: tamsulosin 0.4 mg Capsule PO (05:11)
[2020-03-24] MEDS: piperacillin-tazobactam 3.375 GM in sodium chloride 0.9% (plus) 50 ML IV (05:11)
--- NOTE | 2020-03-24 06:42 | XR_ITS ---
WS: [id number] PORTABLE CHEST HISTORY: Follow-up for increasing pleural effusion COMPARISON: 03/22/2020 Small to moderate persistent LEFT pleural effusion has moderately improved since 03/22/2020. Mild comp ressive atelectasis at the LEFT lung base. RIGHT lung is clear. No pneumothorax. Cardiac size: Mildly enlarged cardiac silhouette. Mediastinum/Aorta: Mild atherosclerosis aorta. Right-sided PICC line with tip in the mid SVC. No osseous abnormality seen. XR/XR chest 1V portable [id number] IMPRESSION: 1. [id number] LEFT pleural effusion slightly improved since 03/22/2020. 2. Compressive atelectasis LEFT lung base.
--- NOTE | 2020-03-24 06:42 | PM.PN ---
Subjective Subjective: Interval history: No events reported by nursing service last night. I do note that his white count is continue to decrease, now 12.7. Last chest x-ray was 2 days ago. Patient sleeping on rounds. Vitals/I&O/Wt Last Vital Signs Temp 97.5 F L 03/24/20 04:28 Pulse 64 03/24/20 04:28 Resp 20 H 03/24/20 04:28 BP 131/56 03/24/20 04:28 Pulse Ox 96 03/24/20 04:28 03/23/20 03/23/20 03/24/20 14:59 22:59 06:59 Intake Total 170 / 170 50 / 220 50 / 270 Output Total 100 / 100 900 / 1000 325 / 1325 Balance 70 / 70 -850 / -780 -275 / -1055 Weight last 48 hrs Weight 265 lb Weight 266 lb 8 oz Physical Exam Urinary Catheter Management^: Gomez: Cath Placed During This Visit: yes, but has since been removed by the nurse Reason for Continuing Indwelling Catheter: Decision to DC Catheter Urinary Catheter Date of Insertion: 03/16/20 Urinary Catheter Time of Insertion: 19:15 Date Urinary Catheter Removed: 03/22/20 Time Urinary Catheter Discontinued: 10:15 Data : 03/24/20 03:25 03/24/20 03:25 Micro: Microbiology 03/17/20 18:15 Gram Stain - Final Pleural Fluid Anaerobic Culture - Preliminary Body Fluid Culture - Final A&P Assessment and plan (1) Pleural effusion: Increasing left pleural effusion Plan: I will repeat chest x-ray this morning, with plans for left pleural Josesito drain placement this afternoon. 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
[2020-03-24] MEDS: predniSONE 10 mg Tablet PO (10:34)
[2020-03-24] MEDS: aspirin 81 mg EC Tablet PO (10:35)
[2020-03-24] MEDS: polyethylene glycol 3350 Pkt 17 gm PO (10:35)
--- NOTE | 2020-03-24 10:38 | PC.OT ---
OT TREATMENT ATTEMPTED. PATIENT IS SLEEPING SOUNDLY. WILL ATTEMPT AGAIN THIS AFTERNOON, HOWEVER, IS SCHEDULED FOR PROCEDURE.
[2020-03-24] MEDS: dilTIAZem 60 mg Tablet PO (10:40)
--- NOTE | 2020-03-24 11:10 | PM.DCS ---
Discharge Providers Date of Admission: 03/16/20 13:48 Date of Discharge: March 24, 2020 Attending Provider at Admission: Ann Marie Altman MD Attending Provider at Discharge: Pedrito Miguel MD Primary Care Provider: Sunday Rachel MD Diagnoses at Discharge Discharge Diagnosis (1) Pleural effusion: Status: Acute Problem details: Concerning to be related to malignancy, parapneumonic or to some degree diastolic dysfunction. (2) Atrial fibrillation with RVR: Status: Acute Problem details: Present on admission (3) Pneumonia: Status: Acute (4) Sepsis: Status: Acute Qualifiers: Sepsis acute organ dysfunction status: without acute organ dysfunction Sepsis type: sepsis due to unspecified organism Qualified Code(s): A41.9 - Sepsis, unspecified organism (5) Sleep apnea: Status: Chronic Qualifiers: Sleep apnea type: unspecified type Qualified Code(s): G47.30 - Sleep apnea, unspecified (6) COPD (chronic obstructive pulmonary disease): Status: Acute Qualifiers: COPD type: unspecified COPD Qualified Code(s): J44.9 - Chronic obstructive pulmonary disease, unspecified (7) T2DM (type 2 diabetes mellitus): Status: Acute Qualifiers: Diabetes mellitus complication status: without complication Diabetes mellitus long-term insulin use: without rodent exterminator use Qualified Code(s): E11.9 - Type 2 diabetes mellitus without complications (8) Hyperlipidemia: Status: Acute (9) Hypertension: Status: Acute (10) Prostate cancer metastatic to bone: Status: Acute (11) Diastolic dysfunction: Status: Acute Problem details: Present on admission. Could possibly be in some degree of mild diastolic heart failure. Reason for Visit Reason for Visit: TACHYCARIDA KIDNEY PAIN SOB Hospital Course Discharge Summary: Patient with metastatic prostate cancer presents with left flank pain and shortness of breath. Patient was found to have large left-sided pleural effusion which felt to be potentially due to metastatic malignancy, parapneumonic and to some degree diastolic dysfunction. He was found to have atrial fibrillation with rapid ventricular response. Patient's heart rate got controlled with diltiazem and patient was started on Eliquis after explaining risks and benefits of anticoagulation. Patient agreed to proceed with treatment. Patient was about to be dismissed yesterday but noted to be more short of breath. We have planned initially to place a [place] drain bed to this morning patient reports feeling much better and does not appear dyspneic therefore we have decided to hold off on placing [place] drain which could potentially create its own complications. This was discussed with patient's daughter Anna and she is in agreement. Patient will need to have repeat CT scan in 2 weeks with decision to hold antibiotics or continue further. Patient is currently being dismissed on Zosyn for 3 weeks as recommended by Dr. Altman. We will start patient on Lasix every other day and I will request CBC checked in several days prior to primary care physician follow-up. Physical Exam Const: COMMON NORMALS: no acute distress and patient oriented x3 Resp: COMMON NORMALS: normal respiratory effort OTHER: Decreased air movement at the left base. Cardio: COMMON NORMALS: regular rate, regular rhythm and S2 normal heart sound present RATE: regular rate RHYTHM: regular rhythm HEART SOUNDS: S2 normal heart sound present OTHER: Trace lower extremity edema GI: COMMON NORMALS: Normal to inspection, nondistended, normoactive bowel sounds present, Soft to palpation and non-tender PALPATION: Yes Soft to palpation Neuro: COMMON NORMALS: patient oriented x3 and no focal motor deficits Urinary Catheter Management^: Gomez: Cath Placed During This Visit: yes, but has since been removed by the nurse Reason for Continuing Indwelling Catheter: Decision to DC Catheter Urinary Catheter Date of Insertion: 03/16/20 Urinary Catheter Time of Insertion: 19:15 Date Urinary Catheter Removed: 03/22/20 Time Urinary Catheter Discontinued: 10:15 Discharge Data Data Completed and Pending: Completed Studies During Hospitalization Category Date Time Status CT angio chest w abd pel w con Urge nt Cat Scan 03/16/20 10:[address] chest w con* 7 1260 Routine Cat Scan 03/19/20 17:30 Completed CXRP [XR chest 1V portable [id number]] U rgent Exams 03/22/20 11:48 Completed XR chest 1V [id number] Routine Exams 03/18/20 16:45 Completed XR chest 1V karen ble [id number] Routine Exams 03/19/20 21:32 Completed XR chest 1V karen ble [id number] Routine Exams 03/24/20 06:42 Completed XR chest 1V karen ble [id number] Stat Exams 03/16/20 10:28 Completed XR chest 1V karen ble [id number] Stat Exams 03/17/20 17:54 Completed CV echo complete* [id number] Routine Ultrasound 03/18/20 11:45 Completed Pending at discharge Category Date Time Status Anaerobic Culture Routine Lab 03/17/20 18:15 Results Body Fluid Cultur e & GS Routine Lab 03/17/20 18:15 Results Complete Blood Co unt w/Auto AM LABS Lab 03/25/20 04:00 Ordered Comprehensive Met abolic Panel AM LA BS Lab 03/25/20 04:00 Ordered Fungal Culture no t HR/SK/BL Routine Lab 03/17/20 18:15 Results Miscellaneous Uzma t AM LABS Lab 03/18/20 05:55 Received Mycobacteria, Cul ture w/Fluor Routi ne Lab 03/17/20 18:15 Results Cytology [PTH] Ro utine Pth 03/17/20 18:22 Ordered Labs from last 24 hours 03/24/20 03/24/20 03/17/20 03:25 03:25 04:45 WBC 12.7 H RBC 4.24 Hgb 11.6 L Hct 37.9 L MCV 89.4 MCH 27.4 L MCHC 30.6 RDW 14.1 Plt Count 366 MPV 8.9 Neut % (Auto) 81.2 Lymph % (Auto) 8.7 [place] % (Auto) 8.2 Eos % (Auto) 0.5 Baso % (Auto) 0.1 Neut # (Auto) 10.31 H Lymph # (Auto) 1.1 [place] # (Auto) 1.0 H Eos # (Auto) 0.1 Baso # (Auto) 0.0 Nucleated RBC % (a uto) 0 Nucleated RBCs # 0.0 Sodium 134 L Potassium 4.1 Chloride 97 L Carbon Dioxide 31 H Anion Gap 10.1 BUN 18 Creatinine 1.0 GFR Calculation Not Reportable Glucose 122 H Calculated Osmolal ity 276 L Calcium 8.2 L Total Bilirubin 0.4 AST 25 ALT 30 Alkaline Phosphata se 59 Total Protein 6.1 L Albumin 2.7 L Globulin 3.4 A. galactomannan A g EIA Not detected A. galactomannan A g Idx <0.50 Vitals: Last Vital Signs Temp 97.8 F 03/24/20 11:01 Pulse 74 03/24/20 11:01 Resp 16 03/24/20 11:01 BP 152/70 03/24/20 11:01 Pulse Ox 97 03/24/20 11:01 Discharge Plan Discharge Patient Disposition: Home Health Service Condition: Stable Prescriptions: New Zosyn 3.375 gram recon soln 3.375 gm IVP Q8H 20 Days RF: 0 diltiazem HCl 240 mg capsule,extended release 24hr 240 mg PO DAILY Qty: 30 RF: 0 Lasix 20 mg tablet 20 mg PO EVERY OTHER DAY Qty: 30 RF: 0 Eliquis 5 mg tablet 5 mg PO BID Qty: 60 RF: 0 Continued fentanyl 50 mcg/hr patch 72 hour 50 mcg topical Q72H RF: 0 bicalutamide 50 mg tablet 50 mg PO DAILY RF: 0 prednisone 10 mg tablet 10 mg PO DAILY RF: 0 Miralax 17 gram Powder In Packet 17 g PO DAILY RF: 0 Aspir-81 81 mg Tablet,Delayed Release (Dr/Ec) 81 mg PO DAILY RF: 0 tamsulosin 0.4 mg capsule 0.4 mg PO QAM RF: 0 FiberCon 625 mg Tablet 625 mg PO PRN RF: 0 gabapentin 100 mg capsule 100 mg PO BEDTIME RF: 0 ergocalciferol (vitamin D2) 1,250 mcg (50,000 unit) capsule 50,000 unit PO Q30D RF: 0 albuterol sulfate 90 mcg/actuation HFA aerosol inhaler 1 - 2 puff INHALATION Q4H PRN (Reason: Shortness Of Breath) RF: 0 Vitamin D3 25 mcg (1,000 unit) Capsule 25 mcg PO DAILY RF: 0 olmesartan 20 mg tablet 20 mg PO DAILY RF: 0 oxycodone 10 mg tablet 10 mg PO Q4H PRN (Reason: Pain) RF: 0 Mucinex 600 mg tablet extended release 12hr 1,200 mg PO Q12H RF: 0 Movantik 25 mg Tablet 25 mg PO PRN RF: 0 Prolia See Rx Instructions .ROUTE .COMPLEX RF: 0 Zoladex See Rx Instructions .ROUTE .COMPLEX RF: 0 Discontinued isosorbide mononitrate 30 mg tablet extended release 24 hr See Rx Instructions .ROUTE .COMPLEX RF: 0 Discharge Orders: Discharge Order (Routine); Ordered 03/24/20 Ordered By: Pedrito Miguel Other Ambulatory Orders: Complete Blood Count w/Auto (Routine) Timeframe: 1 Week Location: Determined by Patient Ordered By: Pedrito Miguel CT chest wo con [id number] (Routine) Timeframe: [id number] Facility: [facility] - Location: [facility] Ordered By: Ann Marie Altman Comprehensive Metabolic Panel (Routine) Timeframe: 1 Week Facility: [facility] - Location: Lab - Main Lab Ordered By: Pedrito Miguel Referrals: Vince Young MD [Physician] - 04/07/20 10:00 am (f/up on complex pleural effusion ) Sunday Rachel MD [Primary Care Provider] - 04/05/20 2:15 pm Discharge Diet: Regular Discharge Activity: Increase activity as tolerated Patient Instructions: Diltiazem (By mouth), Furosemide (By mouth), Piperacillin/Tazobactam (Injection), Apixaban (By mouth), Atrial Fibrillation (DC), Prostate Cancer (DC) Activity Restrictions/Additional Instructions: Please call your doctor or present to emergency department if your condition worsens or you develop diarrhea, lightheadedness, fatigue or see blood in your stool or black stool. Please keep blood pressure and heart rate log 3 times daily to present to primary care physician next visit for medication adjustment. Please note that you will require to have repeat CT scan in 2 weeks for evaluation and decision making if antibiotic will need to be continued as well as if [place] drain will need to be placed. You will need to follow-up with Dr. Altman for further decision-making. Discharge Attestations Time Spent in Discharge Care*: greater than 30 min Quality Metrics Clinical Quality Measures During this hospital stay, did patient experience: None Coding Level of Care Code Acute Patient Observer for Chg Fwd Diagnoses Pleural effusion J90 Atrial fibrillation with RVR I48.91 Pneumonia J18.9 Sepsis A41.9 Sepsis acute organ dysfunction status: without acute organ dysfunction Sepsis type: sepsis due to unspecified organism Sleep apnea G47.30 Sleep apnea type: unspecified type COPD (chronic obstructive pulmonary disease) J44.9 COPD type: unspecified COPD T2DM (type 2 diabetes mellitus) E11.9 Diabetes mellitus complication status: without complication Diabetes mellitus long-term insulin use: without rodent exterminator use Hyperlipidemia E78.5 Hypertension I10 Prostate cancer metastatic to bone C61; C79.51 Diastolic dysfunction I51.89
--- NOTE | 2020-04-07 11:07 | PC.SOCIAL ---
Called by Pretty with [facility]. Patient was to have a CT scan scheduled and was ordered at [place]. This was not completed. Sent message to [facility] scheduling to inquire and am awaiting response. Was told that patient's PCP office did call today to get it scheduled and is scheduled for tomorrow at 3:30pm. This nurse called Dr Young office and pt did not attend appt this am at 10. This nurse explained to Shayla that patient will need to be rescheduled since needs seen after the CT scan is complete. Shayla at [facility] scheduled patient with Dr Young on 04/12/2020Saturday at 11am. Called patient to update. Patient indicates not aware of appt with Dr Young that was originally scheduled for today. He is aware that he is to have a CT scan tomorrow. He was having hard time hearing the new appt information for Dr Young for Saturday at 11am. He asked that this nurse call back in 30 min to give information to Son in Law who is presently mowing the lawn. This nurse will do so. Called [facility] nurse Pretty and updated her as well. She will call daughter to and make sure everyone is aware.
--- NOTE | 2020-04-07 12:06 | PC.SOCIAL ---
notified Son in law of appt next Saturday at 11am with Dr Young. Emailed Dr Young information as well.
== END 2020-03-24 14:00 | disposition home health service (06) | DRG 871 ==
LOC: ER 11:25 → ICU 14:32 → MEDSURG 03-22 13:48
PROVIDERS: Emergency Medicine; Internal Medicine Pulmonary Disease; Admitting Provider Student in an Organized Health Care Education/Training Program; PCP Family Medicine; Visit Provider Internal Medicine
DX: A41.9 Sepsis, unspecified organism (principal); J96.01 Acute respiratory failure with hypoxia; J18.9 Pneumonia, unspecified organism; I50.31 Acute diastolic (congestive) heart failure; J90 Pleural effusion, not elsewhere classified; J44.0 Chronic obstructive pulmonary disease with (acute) lower respiratory infection; C79.51 Secondary malignant neoplasm of bone; I48.92 Unspecified atrial flutter; J98.11 Atelectasis; G47.30 Sleep apnea, unspecified; E11.9 Type 2 diabetes mellitus without complications; E78.5 Hyperlipidemia, unspecified; I48.91 Unspecified atrial fibrillation; C61 Malignant neoplasm of prostate; I11.0 Hypertensive heart disease with heart failure; Z79.82 Long term (current) use of aspirin; Z92.3 Personal history of irradiation; M19.90 Unspecified osteoarthritis, unspecified site; Z20.828 Contact with and (suspected) exposure to other viral communicable diseases
CPT/HCPCS: 12345; 36415; 36416; 36569; 51702; 71045; 71260; 71275; 74177; 80053; 80202; 80500; 81001; 81003; 82150; 82570; 82945; 82962; 83036; 83605; 83615; 83986; 84145; 84157; 84478; 84484; 85014; 85025; 85378; 86403; 87015; 87040; 87070; 87075; 87102; 87116; 87205; 87206; 87210; 87305; 87449; 87635; 87641; 87801; 88305; 89050; 93005; 93306; 94640; 94660; 96372; 96375; 97110; 97116; 97162; 97165; 97530; 97535; 99284; J0456; J0696; J1650; J1940; J2270; J2405; J2543; J2997; J3010; J3370; J3490; J7030; J7040; J7050; J7512; J8999; Q0144; Q9967

== ENCOUNTER 2020-03-29 11:40 | Outpatient (CLI) | payer MEDICARE, OTHER, SELFPAY ==
[2020-03-29 12:03] LABS: Basophils % 0.2 %; Eosinophils % 0.3 %; Hemoglobin 10.2 g/dL (11.7-16.6); Lymphocytes # 1.4 10^3/uL (0.8-4.8); Lymphocytes % 10.7 %; Mean Corpuscular Volume 89.9 fL (80-94); Mean Platelet Volume 9.1 fL (7.4-10.4); Monocytes # 0.8 10^3/uL (0.2-0.9); Monocytes % 6.1 %; Neutrophils # 10.93 10^3/uL (1.8-7.7); Nucleated Red Blood Cells % 0 %; Platelet Count 314 10^3/cmm (130-400); Red Blood Count 3.78 10^6/uL (4.1-5.3); Red Cell Distribution Width 14.2 % (12.1-15.1); White Blood Count 13.3 10^3/uL (4.0-10.0)
[2020-03-29 12:08] LABS: Alanine Aminotransferase 20 U/L (0-41); Alkaline Phosphatase 50 IU/L (40-130); Anion Gap 11.2 (5-19); Aspartate Amino Transferase 19 U/L (0-40); Blood Urea Nitrogen 17 mg/dL (8-23); Calcium 8.4 mg/dL (8.5-10.5); Carbon Dioxide 30 mmol/L (22-29); Chloride 98 mmol/L (98-107); Globulin 3.2 g/dL (1.3-4.6); Glucose 97 mg/dL (65-115); Osmolality Calculated 276 mOsm/kg (285-295); Potassium 4.2 mmol/L (3.5-5.1); Sodium 135 mmol/L (136-145); Total Bilirubin 0.2 mg/dL (0.15-1.2); Total Protein 6.2 g/dL (6.6-8.7)
== END 2020-03-29 11:41 | disposition home or self-care (01) ==
PROVIDERS: Internal Medicine; PCP Family Medicine; Visit Provider Family Medicine
DX: A41.9 Sepsis, unspecified organism (principal)
CPT/HCPCS: 80053; 85025

== ENCOUNTER 2020-04-04 16:11 | Outpatient (CLI) | payer MEDICARE, OTHER, SELFPAY ==
[2020-04-04 16:38] LABS: Basophils # 0.1 10^3/uL (0.0-0.1); Basophils % 0.6 %; Eosinophils # 0.1 10^3/uL (0.0-0.8); Eosinophils % 0.6 %; Hematocrit 33.4 % (42.0-52.0); Hemoglobin 9.5 g/dL (11.7-16.6); Lymphocytes # 1.5 10^3/uL (0.8-4.8); Lymphocytes % 15.3 %; Mean Corpuscular HGB Conc 28.4 g/dL (30.0-36.0); Mean Corpuscular Hemoglobin 26.3 pg (28.0-34.0); Mean Corpuscular Volume 92.5 fL (80-94); Mean Platelet Volume 9.2 fL (7.4-10.4); Monocytes # 0.7 10^3/uL (0.2-0.9); Monocytes % 7.1 %; Neutrophils # 7.45 10^3/uL (1.8-7.7); Nucleated Red Blood Cells % 0 %; Platelet Count 374 10^3/cmm (130-400); Red Blood Count 3.61 10^6/uL (4.1-5.3); Red Cell Distribution Width 14.6 % (12.1-15.1); White Blood Count 9.8 10^3/uL (4.0-10.0)
[2020-04-04 17:26] LABS: Alanine Aminotransferase 12 U/L (0-41); Albumin Level 3.3 g/dL (3.5-5.2); Alkaline Phosphatase 52 IU/L (40-130); Anion Gap 13.8 (5-19); Aspartate Amino Transferase 18 U/L (0-40); Blood Urea Nitrogen 18 mg/dL (8-23); Calcium 8.8 mg/dL (8.5-10.5); Carbon Dioxide 26 mmol/L (22-29); Chloride 101 mmol/L (98-107); Globulin 3.1 g/dL (1.3-4.6); Glucose 80 mg/dL (65-115); Osmolality Calculated 277 mOsm/kg (285-295); Potassium 4.8 mmol/L (3.5-5.1); Sodium 136 mmol/L (136-145); Total Bilirubin 0.3 mg/dL (0.15-1.2); Total Protein 6.4 g/dL (6.6-8.7)
== END 2020-04-04 16:12 | disposition home or self-care (01) ==
LOC: LAB 16:17
PROVIDERS: PCP Family Medicine; Visit Provider Family Medicine
DX: A41.9 Sepsis, unspecified organism (principal)
CPT/HCPCS: 80053; 85025

== ENCOUNTER 2020-04-08 15:13 | Outpatient (CLI) | payer MEDICARE, OTHER, SELFPAY ==
--- NOTE | 2020-04-08 15:30 | CTR_ITS ---
PROCEDURE INFORMATION: Exam: CT Chest Without Contrast Exam date and time: 04/08/2020 3:56 PM Age: 84 years old Clinical indication: Condition or disease; Lung condition and disease; Pleural effusion; Other: Not specified; Additional info: Follow up complex pleural effusion TECHNIQUE: Imaging protocol: Computed tomography of the chest without contrast. Radiation optimization: All CT scans at this facility use at least one of these dose optimization techniques: automated exposure control; mA and/or kV adjustment per patient size (includes targeted exams where dose is matched to clinical indication); or iterative reconstruction. COMPARISON: CT chest w con* [id number] 03/19/2020 6:53 PM RADIATION DOSE METRICS: Total DLP (mGy-cm): 1117.7 FINDINGS: Lungs: Mild paraseptal emphysema. Pleural space: Decreased size of loculated left pleural fluid collection with some thickening of the surrounding rim with central low density, suggesting sequela from empyema or hemothorax. Heart: Stable severe calcified coronary artery disease. Aorta: Calcification of the abdominal aorta and/or iliac arteries consistent with atherosclerotic vessel disease. Great vessels off aortic arch: Calcification of the thoracic aorta and/or great vessels consistent with atherosclerotic vessel disease. Lymph nodes: Unremarkable. No enlarged lymph nodes. Gallbladder and bile ducts: Multiple gallstones within the gallbladder. Kidneys and ureters: One or more nonobstructing right renal calyceal stones. Left renal simple cyst measuring >1.0 cm. Bones/joints: Moderate thoracic spondylosis. Soft tissues: Unremarkable. CT/CT chest con [id number] IMPRESSION: 1. Mild paraseptal emphysema. 2. Stable severe calcified coronary artery disease. 3. Decreased size of loculated left pleural fluid collection with some thickening of the surrounding rim with central low density, suggesting sequela from empyema or hemothorax. COMMENTS: Consistent with the [employer]'s Incidental Findings Committee white paper (J Am Hal Radiol 2018): Any incidental renal lesion less than 1.0 cm or classified as too small to characterize, or any incidental cystic renal lesion characterized as simple-appearing, is likely benign. No follow-up imaging is recommended for these lesions per consensus recommendations based on imaging criteria. Radiation Dose CTDIVOL = (mGy): DLP = 1117.7 (mGy-cm)
== END 2020-04-08 15:14 | disposition home or self-care (01) ==
LOC: RADWPI 15:18
PROVIDERS: PCP Family Medicine; Visit Provider Family Medicine
DX: J90 Pleural effusion, not elsewhere classified (principal); J43.9 Emphysema, unspecified; I25.10 Atherosclerotic heart disease of native coronary artery without angina pectoris
CPT/HCPCS: 71250

== ENCOUNTER 2020-04-12 16:44 | Outpatient (CLI) | payer MEDICARE, OTHER, SELFPAY ==
[2020-04-12 17:43] LABS: Alanine Aminotransferase 13 U/L (0-41); Albumin Level 3.5 g/dL (3.5-5.2); Alkaline Phosphatase 60 IU/L (40-130); Aspartate Amino Transferase 18 U/L (0-40); Basophils % 0.4 %; Blood Urea Nitrogen 14 mg/dL (8-23); Calcium 8.8 mg/dL (8.5-10.5); Carbon Dioxide 28 mmol/L (22-29); Chloride 102 mmol/L (98-107); Eosinophils # 0.1 10^3/uL (0.0-0.8); Eosinophils % 0.5 %; Glucose 129 mg/dL (65-115); Hematocrit 32.2 % (42.0-52.0); Hemoglobin 9.6 g/dL (11.7-16.6); Lymphocytes # 1.5 10^3/uL (0.8-4.8); Lymphocytes % 16.2 %; Mean Corpuscular HGB Conc 29.8 g/dL (30.0-36.0); Mean Corpuscular Hemoglobin 26.9 pg (28.0-34.0); Mean Corpuscular Volume 90.2 fL (80-94); Mean Platelet Volume 9.5 fL (7.4-10.4); Monocytes # 0.7 10^3/uL (0.2-0.9); Monocytes % 7.6 %; Neutrophils # 6.87 10^3/uL (1.8-7.7); Neutrophils % 74.6 %; Nucleated Red Blood Cells % 0 %; Osmolality Calculated 282 mOsm/kg (285-295); Platelet Count 242 10^3/cmm (130-400); Red Blood Count 3.57 10^6/uL (4.1-5.3); Red Cell Distribution Width 14.6 % (12.1-15.1); Sodium 137 mmol/L (136-145); Total Bilirubin 0.3 mg/dL (0.15-1.2); Total Protein 6.5 g/dL (6.6-8.7); White Blood Count 9.2 10^3/uL (4.0-10.0)
[2020-04-12 17:44] LABS: Anion Gap 11.7 (5-19); Potassium 4.7 mmol/L (3.5-5.1)
== END 2020-04-12 16:45 | disposition home or self-care (01) ==
LOC: LAB 16:49
PROVIDERS: PCP Family Medicine; Visit Provider Family Medicine
DX: A41.9 Sepsis, unspecified organism (principal)
CPT/HCPCS: 80053; 85025

== ENCOUNTER 2020-04-19 11:48 | Outpatient (CLI) | payer MEDICARE, OTHER, SELFPAY ==
--- NOTE | 2020-04-19 16:21 | ONC FU_ITS ---
Dr. Hennessy follow up note Patient: Robby Crowder Unit #: [id number]: [id number] Dicatated By: Rhett Hennessy M.D.Date of Visit:Apr 19, 2020 Onc Med Follow-up/Prog Note History of Present Illness: This is a 84 year-old man with stage IV prostatic adenocarcinoma, metastatic to the bone. He had known adenocarcinoma of the prostate, Millwood score 7 (4+3), initially stage III with invasion of seminal vesicles by direct extension. He underwent prostatectomy and lymphadenectomy at [facility] in March of 2004. His PSA was gradually rising; 0.38 in July of 2007, 2.03 in April of 2006, 6.11 in January of 2012, and 26.68 in July of 2013. Hormonal therapy was considered, but not initiated. The patient presented with significant lower back pain in the fall of 2012. His CT of the spine on 09/14/13 revealed destructive process of the L1 vertebral body with a lytic lesion of approximately 14 mm. He has no associated neurologic deficit. He was first seen by Dr. Miguel on 09/24/2013. PSA measured 44.4. An MRI of the lumbar spine on 09/25/2013 showed no evidence of central canal or neuroforaminal compromise. His bone scan revealed metastatic disease that included thoracic and lumbar spine, sacrum, left proximal humerus, right clavicle, right fifth rib and right temporal bone. A biopsy of the L1 vertebral body on 10/16/2013 confirmed prostatic adenocarcinoma. The patient began on treatment with Zoladex and Casodex. He had a good biochemical response. Restaging bone scan on 07/19/2014 showed improvement in the bone lesions. MRI of the L-spine on 07/21/2014 showed possible tumor extension in L1-L2 region but with no invasion into the thecal sac. He had exacerbation of his back pain, for which he received palliative radiation T10-L2 in January 2015. He continued treatment with the Zoladex and Casodex. In the Prolia every 6 months His other medical illnesses include hypertension, hyperlipidemia, type II diabetes, COPD, obstructive sleep apnea, and degenerative arthritis. He also has B12 deficiency. He had previously smoked 1-1/2 packs of cigarettes daily for 40 years. He quit smoking in 2009 tolerating Zoladex/Casodex well Came for follow-up, complaining of generalized weakness and fatigue, tired, shortness of breath wheezing, patient was in the hospital recently diagnosed with pneumonia treated with antibiotics with some relief, now symptoms are getting worse including right chest pain, patient underwent CT scan of chest on April 08, 2020 which showed mild paraseptal emphysema, decreased size of loculated left pleural fluid collection with some thickening of surrounding rim with central low density suggesting of empyema or hemothorax. Medications: Aspirin Low Dose 1 (81 mg) Tablet Oral daily, Benicar 1 Tablet (of 20 mg) Oral daily, Bicalutamide 1 Tablet (of 50 mg) Oral daily, Citracal +D3 Tablet, chewable Oral daily, fentaNYL 1 Patch(es) (of 50 mcg/hr) Patch 72 Hr Transdermal q 72 hours, Fiber 1 (625 mg) Tablet Oral daily PRN, Gabapentin 1 Capsule (of 300 mg) Oral daily, Imdur 0.5 (30 mg) Tablet SR 24 HR Oral every am, Movantik 1 Tablet (of 25 mg) Oral daily, Mucus Relief 1 Tablet (of 600 mg) Tablet SR 12 HR Oral daily, OxyCODONE HCl 1 Tablet (of 10 mg) Tablet Oral q 4 to 6 hours PRN, predniSONE 1 Tablet (of 10 mg) Oral daily, ProAir RespiClick Aerosol Powder, Breath Activated Inhalation, Tamsulosin HCl 1 Capsule (of 0.4 mg) Capsule Oral daily, Vitamin D3 1 (1000 Units) Capsule Oral daily, Zoladex Subcutaneous Allergies: No Known Allergies. Review of Systems: Constitutional - Appetite is fair and weight is stable. No fever, chills, hot flashes, or night sweats. Energy level is poor, ENMT - No sinus congestion/drainage. No mouth sores. No sore throat or difficulty swallowing, Hematologic/Lymphatic - Patient bruises easily, no abnormal bleeding, Respiratory - Positive for shortness of breath. Pt is on portable oxygen today. No cough. No pleuritic pain or hemoptysis, Cardiovascular - No angina pain. No palpitations, Gastrointestinal - No nausea or vomiting. No heartburn or acid reflux. No diarrhea or constipation. No blood in the stool or black stools, Genitourinary (M) - No dysuria or hematuria. Patient has urinary frequency. No urgency or incontinence, Musculoskeletal - Chronic back and knee pain, Integumentary - No new rashes or ulcerations, Neurologic - No headache or dizziness. No numbness/paresthesias or other focal neurologic symptoms, Psychiatric - No anxiety or depression. No insomnia. Vital Signs: Performed on Apr 19, 2020 13:32 Height - 68.00 in Weight - 253.4 lbs (LOW) BSA - 2.26 sq.m BMI - 38.53 (HIGH) Temperature - 97.5 F (LOW) Pulse - 66 /min Respiration - 30 /min (HIGH) BP - 132/52 mm(hg) O2 Sat - 96 % Pain - 5 Performance Status: 2 - Ambulatory/capable of all self-care, unable to perform any work activities. Up and about more than 50% of waking hours. (ECOG) Physical Examination: ENMT - Dry oral mucosa, poor oral hygiene, Respiratory - Bilateral wheezing, decreased breath sound at lung base more on the left, Cardiovascular - Regular rate and rhythm of heart, Abdomen - Soft, bowel sounds present, Extremities - 1+ edema. Lab/Imaging: Test performed on January 11, 2020 15:05 PSA 1.64 ng/mL Impression: 1. Patient with Millwood score 7 prostatic adenocarcinoma, stage III at initial diagnosis/prostatectomy in March 2004. He subsequently had progression to stage IV with biopsy proven metastatic involvement in the bone. 2. In December 2013 he began Zoladex together with Casodex 50 mg daily. He has a good biochemical response. Bone scan in July 2014 showed improvement. 3. He received palliative radiation treatment to T10- L2 in January of 2015. PSA shashank at 0.08- 0.09. His other medical illnesses include: 4. Hypertension. 5. Hyperlipidemia. 6. Type II diabetes. 7. COPD. 8. Obstructive sleep apnea. 9. Degenerative arthritis. Patient had a slight increase in the PSA level beginning in January 2016. The significance has been uncertain, as his clinical status has remained stable, and his subsequent PSA levels have stabilized. He also has had vitamin D deficiency, for which he is on replacement therapy, and has been receiving Prolia injections for maintenance of bone health. Overall, he appears to be doing pretty well with no evidence of progression of the prostate cancer. Plan: Discussed with patient regarding his PSA which is 2.9 compared to 1.64 on January 11, 2020 Clinically, patient is in mild to moderate distress due to generalized weakness and fatigue, right chest pain, shortness of breath and wheezing and recently done CT scan of chest shows left pleural effusion/fluid collection, empyema versus hemothorax, due to worsening of his symptoms patient was sent to ER for evaluation, will hold his scheduled dose of Zoladex today and he will return to clinic in 1 month with PSA and for further discussion Signed By: Rhett Hennessy M.D. <<Signature on File>>
== END 2020-04-19 11:49 | disposition home or self-care (01) ==
LOC: ONCMED 11:53
PROVIDERS: PCP Family Medicine; Visit Provider Internal Medicine Hematology & Oncology
DX: C61 Malignant neoplasm of prostate (principal); C79.51 Secondary malignant neoplasm of bone; J90 Pleural effusion, not elsewhere classified; R53.1 Weakness; R53.83 Other fatigue; J43.9 Emphysema, unspecified; E55.9 Vitamin D deficiency, unspecified; I10 Essential (primary) hypertension; E78.5 Hyperlipidemia, unspecified; E11.9 Type 2 diabetes mellitus without complications; J44.9 Chronic obstructive pulmonary disease, unspecified; G47.33 Obstructive sleep apnea (adult) (pediatric); M19.90 Unspecified osteoarthritis, unspecified site; Z79.818 Long term (current) use of other agents affecting estrogen receptors and estrogen levels; Z79.899 Other long term (current) drug therapy
CPT/HCPCS: 36415; 84153; 99214

== ENCOUNTER 2020-04-19 14:21 | Inpatient (IN) | payer MEDICARE, OTHER, SELFPAY ==
[2020-04-19] VITALS (7 sets, daily range): BP systolic 130–166; BP diastolic 71–78; PULSE 62–110; RESP 16–26; TEMP 36.3–36.5; O2SAT 89–97; BMI 40.3
--- NOTE | 2020-04-19 14:44 | ED_ITS ---
HPI - SOB/Dyspnea General: Chief Complaint: Shortness of Breath/Dyspnea Stated Complaint: SOB Time Seen by Provider: 04/19/20 14:37 History of Present Illness: HPI Narrative: 84-year-old male who was sent here by oncology. He has a history of prostate CA with mets he was sent here today after being seen in the office is complaining of shortness of breath altered mental status changes he has a history of COPD he has a loculated left lower lobe effusion. He was hospitalized last month with a large loculated effusion I did culture and reviewing the cultures nothing grew out. He denies any fever sweats chills he is a moderately productive cough. MD elicited complaint: shortness of breath and cough Pertinent past history: COPD Onset (ago): day(s) Timing: constant Severity: moderate Exacerbating factors: lying flat, exertion and coughing Relieving factors: oxygen and rest Known history of: COPD and other (Prostate cancer with metastasis to the bone) Associated symptoms: Reports chest congestion and cough; Deny fever(s), hemoptysis, lightheadedness, myalgias, nausea, orthopnea, palpitations, syncope or vomiting Treatment prior to arrival: oxygen Review of Systems Const: Denies: fever(s) ENMT: Denies: throat pain, ear or mastoid pain, nasal discharge or nasal congestion Card: Denies: palpitations, lightheadedness, syncope or orthopnea Resp: Reports: chest congestion; Denies: hemoptysis GI: Denies: nausea or vomiting : Denies: flank pain, dysuria, urinary frequency or urinary urgency Skin/Breast: Denies: rash or pruritus PFSH ED PFSH: Medical History (Updated 04/21/20 @ 12:15 by Junior Allen MD) Atrial fibrillation COPD (chronic obstructive pulmonary disease) Degenerative arthritis Diastolic dysfunction Present on admission. Could possibly be in some degree of mild diastolic heart failure. Former smoker, stopped smoking in distant past Hyperlipidemia Hypertension Pleural effusion No evidence of worsening this hospital stay Prostate cancer metastatic to bone Sleep apnea T2DM (type 2 diabetes mellitus) Surgical History (Updated 04/19/20 @ 17:03 by Junior Allen MD) History of thoracentesis Social History Smoking and tobacco status: former smoker Quit status (tobacco): has quit using tobacco Year quit tobacco: 1999 PPD x 50 Years Alcohol intake: never Lives independently: Yes Household members: spouse Marital status: Current occupational status: retired History of recent travel: No Current gender identity: Male Physical Exam Const: GENERAL APPEARANCE: cooperative ORIENTATION/CONSCIOUSNESS: Yes awake, Yes oriented to person, Yes oriented to place and Yes oriented to time HENMT: COMMON NORMALS: normocephalic, atraumatic, hearing grossly normal bilaterally, external ears normal, EAC's normal, TM's normal bilaterally, Normal nasal mucous membranes and turbinates present, moist oral mucous membranes and oropharynx normal HEAD & SCALP: normocephalic and atraumatic NOSE: Normal nasal mucous membranes and turbinates present EXTERNAL EAR: Yes external ears normal EXTERNAL AUDITORY CANAL: EAC's normal TYMPANIC MEMBRANE: TM's normal bilaterally Eye: COMMON NORMALS: Equal, round and reactive pupils present, EOMs intact brenda aterally, conjunctivae normal and no scleral icterus CONJUNCTIVA: Yes conjunctivae normal PUPIL: Yes Equal, round and reactive pupils present Neck/C-Spine: COMMON NORMALS: full ROM, no lymphadenopathy and supple Lymph: LYMPHATIC: no lymphadenopathy noted and no lymphedema noted Resp: EFFORT & INSPECTION: Yes tachypneic and Yes Actively coughing AUSCULTATION: wheezes and diminished lung sounds PERCUSSION: dullness Lower: left Cardio: COMMON NORMALS: regular rhythm and No murmurs present (Cardio) RATE: tachycardic RHYTHM: regular rhythm GI: COMMON NORMALS: Soft to palpation and No hepatosplenomegaly present AUSCULTATION: Yes normoactive bowel sounds PALPATION: Yes Soft to palpation, No Tenderness to palpation present (GI), No Guarding due to palpation present (GI) and Yes No hepatosplenomegaly present Extremity: COMMON NORMALS: normal to inspection, capillary refill normal, no clubbing, cyanosis or edema, no calf tenderness and no pedal edema Neuro: SENSORIUM/ORIENTATION: Yes oriented to person, Yes oriented to place and Yes oriented to time Skin: COMMON NORMALS: no rashes or lesions noted GENERAL SKIN EXAM: no rashes or lesions noted Course Vital Signs: Vital signs: Vital Signs Temperature 98.2 F 04/21/20 11:39 Pulse Rate 91 04/21/20 11:39 Respiratory Rate 18 04/21/20 16:21 Blood Pressure 132/74 04/21/20 11:39 Pulse Oximetry 88 L 04/21/20 13:36 MDM - SOB/Dyspnea MDM Narrative: Medical decision making narrative: Discussed case with Dr. Allen. Will admit the patient. Unfortunately the pleural effusion is present been evaluated and is difficult to get drained. Dr. Hennessy and sent the patient here to be evaluated for possible drainage of the pleural effusion. Previous notes are reviewed. Patient has extensive metastasis comfort care may be a significant consideration. Lab Data: Labs: Lab Results 04/19/20 04/19/20 04/19/20 Range/Units 15:15 15:15 15:15 WBC 11.6 H (4.0-10.0) 10^3/ uL RBC 3.72 L (4.1-5.3) 10^6/u L Hgb 10.3 L (11.7-16.6) g/dL Hct 33.6 L (42.0-52.0) % MCV 90.3 (80-94) fL MCH 27.7 L (28.0-34.0) pg MCHC 30.7 (30.0-36.0) g/dL RDW 14.9 (12.1-15.1) % Plt Count 233 (130-400) 10^3/c mm MPV 9.2 (7.4-10.4) fL Neut % (Auto) 78.9 % Lymph % (Auto) 11.0 % Republic % (Auto) 8.9 % Eos % (Auto) 0.5 % Baso % (Auto) 0.3 % Neut # (Auto) 9.14 H (1.8-7.7) 10^3/u L Lymph # (Auto) 1.3 (0.8-4.8) 10^3/u L Republic # (Auto) 1.0 H (0.2-0.9) 10^3/u L Eos # (Auto) 0.1 (0.0-0.8) 10^3/u L Baso # (Auto) 0.0 (0.0-0.1) 10^3/u L Nucleated RBC % (a uto) 0 % Nucleated RBCs # 0.0 /100WBC Specimen Type Sample Site ABG pH (7.35-7.45) ABG pCO2 (35-45) mmHg ABG pO2 (80.0-100.0) mmH g ABG HCO3 (22-26) mmol/L ABG O2 Saturation ABG Base Excess (-2.0-2.0) mmol/ L Gallo Test A-a O2 Gradient Hematocrit (42-52) % Hgb O2 Saturation (95-100) % Carboxyhemoglobin (0.4-20.1) %THgb Methemoglobin (0.4-1.5) % Total Hemoglobin (14-18) g/dL Ionized Calcium (1.1-1.4) mmol/L O2 Delivery Device O2 Liters/Min % Physician/Ophthalmologist ID Sodium 133 L (136-145) mmol/L Potassium 4.9 (3.5-5.1) mmol/L Chloride 97 L (98-107) mmol/L Carbon Dioxide 27 (22-29) mmol/L Anion Gap 13.9 (5-19) BUN 13 (8-23) mg/dL Creatinine 0.8 (0.7-1.2) mg/dL GFR Calculation Not Reportable Glucose 140 H (65-115) mg/dL Calculated Osmolal ity 274 L (285-295) mOsm/k g Calcium 8.9 (8.5-10.5) mg/dL Magnesium 2.1 (1.7-2.3) mg/dL Total Bilirubin 0.6 (0.15-1.2) mg/dL AST 12 (0-40) U/L ALT 9 (0-41) U/L Alkaline Phosphata se 85 (40-130) IU/L Troponin T Baselin e 19 H (0-15) ng/L Total Protein 7.0 (6.6-8.7) g/dL Albumin 3.5 (3.5-5.2) g/dL Globulin 3.5 (1.3-4.6) g/dL Urine Color (Yellow) Urine Appearance (CLEAR) Urine pH (5-7) Ur Specific Gravit y (1.005-1.030) Urine Protein (Negative) Urine Glucose (UA) (Normal) Urine Ketones (Negative) Urine Blood (Negative) Urine Nitrate (Negative) Urine Bilirubin (NEGATIVE) Urine Urobilinogen (Negative) mg/dL Ur Leukocyte [place] ase (Negative) Urine RBC (0-2) /hpf Urine WBC (0-5) /hpf Ur Squamous Epith Cells (0-5) Amorphous Sediment Urine Bacteria (NONE) Urine Mucus 04/19/20 04/19/20 Range/Units 15:16 16:01 WBC (4.0-10.0) 10^3/ uL RBC (4.1-5.3) 10^6/u L Hgb (11.7-16.6) g/dL Hct (42.0-52.0) % MCV (80-94) fL MCH (28.0-34.0) pg MCHC (30.0-36.0) g/dL RDW (12.1-15.1) % Plt Count (130-400) 10^3/c mm MPV (7.4-10.4) fL Neut % (Auto) % Lymph % (Auto) % Republic % (Auto) % Eos % (Auto) % Baso % (Auto) % Neut # (Auto) (1.8-7.7) 10^3/u L Lymph # (Auto) (0.8-4.8) 10^3/u L Republic # (Auto) (0.2-0.9) 10^3/u L Eos # (Auto) (0.0-0.8) 10^3/u L Baso # (Auto) (0.0-0.1) 10^3/u L Nucleated RBC % (a uto) % Nucleated RBCs # /100WBC Specimen Type Arterial Sample Site Radial, left ABG pH 7.41 (7.35-7.45) ABG pCO2 48.1 H (35-45) mmHg ABG pO2 93.7 (80.0-100.0) mmH g ABG HCO3 30.4 H (22-26) mmol/L ABG O2 Saturation 98.3 ABG Base Excess 4.9 H (-2.0-2.0) mmol/ L Gallo Test Pos A-a O2 Gradient Not Reportable Hematocrit 31.3 L (42-52) % Hgb O2 Saturation 96.3 (95-100) % Carboxyhemoglobin 1.2 (0.4-20.1) %THgb Methemoglobin 0.8 (0.4-1.5) % Total Hemoglobin 10.2 L (14-18) g/dL Ionized Calcium 1.2 (1.1-1.4) mmol/L O2 Delivery Device Nc O2 Liters/Min 4.0 % Physician/Ophthalmologist ID [place] Sodium 137.0 (136-145) mmol/L Potassium 4.7 (3.5-5.1) mmol/L Chloride (98-107) mmol/L Carbon Dioxide (22-29) mmol/L Anion Gap (5-19) BUN (8-23) mg/dL Creatinine (0.7-1.2) mg/dL GFR Calculation Glucose 143.0 H (65-115) mg/dL Calculated Osmolal ity (285-295) mOsm/k g Calcium (8.5-10.5) mg/dL Magnesium (1.7-2.3) mg/dL Total Bilirubin (0.15-1.2) mg/dL AST (0-40) U/L ALT (0-41) U/L Alkaline Phosphata se (40-130) IU/L Troponin T Baselin e (0-15) ng/L Total Protein (6.6-8.7) g/dL Albumin (3.5-5.2) g/dL Globulin (1.3-4.6) g/dL Urine Color Yellow (Yellow) Urine Appearance Hazy A (CLEAR) Urine pH 6 (5-7) Ur Specific Gravit y 1.015 (1.005-1.030) Urine Protein Neg (Negative) Urine Glucose (UA) Norm (Normal) Urine Ketones Negative (Negative) Urine Blood 3+ H (Negative) Urine Nitrate Negative (Negative) Urine Bilirubin Neg (NEGATIVE) Urine Urobilinogen 1 H (Negative) mg/dL Ur Leukocyte [place] ase Trace H (Negative) Urine RBC 0-4 H (0-2) /hpf Urine WBC 10-15 H (0-5) /hpf Ur Squamous Epith Cells 0-4 H (0-5) Amorphous Sediment Not Reportable Urine Bacteria 1+ H (NONE) Urine Mucus Trace Discharge Plan Discharge Patient Disposition: Admitted As Inpatient Admit Provider: Junior Allen Clinical Impression: Acute exacerbation of chronic obstructive airways disease, Hypertension, T2DM (type 2 diabetes mellitus), Pleural effusion, Prostate cancer metastatic to bone Condition: Stable Referrals: Sunday Rachel MD [Primary Care Provider] - 05/05/20 2:00 pm (You have an appointment on May 05 at 2:00pm Address is: [address] [place] [address], [place]) Discharge Diet: Cardiac and Diabetic Discharge Activity: Increase activity as tolerated Patient Instructions: COPD, Prednisone (By mouth), Levofloxacin (By mouth), Ipratropium/Albuterol (By breathing), Fluticasone/Salmeterol (By breathing), Sleep Apnea Syndrome (DC), Prostate Cancer (DC), Pleural Effusion (DC), COPD Stoplight Additional Instructions: Home oxygen evaluation prior to discharge Take all medicine as prescribed Follow-up with primary care provider 3 to 5 days Follow-up with oncology Resume home health Discharge Date/Time: 04/19/20 17:00 Coding Level of Care Code ED Instructional Interventionist for Chg Fwd Exam Comprehensive
--- NOTE | 2020-04-19 15:04 | XR_ITS ---
WS: [id number] EXAM: AP CHEST: PORTABLE UPRIGHT DATE OF EXAM: 04/19/2020, 1536 hours COMPARISON: Chest x-rays from 718, 03/21 and 03/24/2020 HISTORY: Patient is 84 years old with follow-up pulmonary infiltrate. Patient complaining of dyspnea and a cou gh. FINDINGS: The cardiac silhouette is stable. Considered slightly enlarged. The mediastinal contours are simil ar. Calcified plaque in the aorta. The pulmonary vascularity is normal. Right lung is clear. Left ame ng infiltrate and effusion slowly continues to regress. Persistent infiltrate and effusion however do es remain. No pneumothorax. No acute bony abnormality is seen. XR/XR chest 1V portable [id number] IMPRESSION: Slowly regressing left lung infiltrate and effusion. Some degree remains. Right lung remains clear. No pulmonary edema.
--- NOTE | 2020-04-19 15:05 | ECG_ITS ---
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 Measurements Intervals Merna Rate: 65 P: 267 CO: 121 QRS: -49 QRSD: 126 T: 3 QT: 384 QTc: 402 Interpretive Statements Atrial fibrillation LEFT ANTERIOR FASCICULAR BLOCK [QRS AXIS <= -45, QR IN I, RS IN II] MODERATE ST DEPRESSION [0.05+ mV ST DEPRESSION] Compared to ECG 03/20/2020 12:08:44 Left anterior fascicular block now present ST (T wave) deviation now present Intraventricular conduction delay no longer present Electronically Signed On 04-19-2020 17:20:54 CDT by Juarez Corley M.D. [id number]
[2020-04-19 15:21] LABS: Basophils % 0.3 %; Eosinophils # 0.1 10^3/uL (0.0-0.8); Eosinophils % 0.5 %; Hematocrit 33.6 % (42.0-52.0); Hemoglobin 10.3 g/dL (11.7-16.6); Lymphocytes # 1.3 10^3/uL (0.8-4.8); Mean Corpuscular HGB Conc 30.7 g/dL (30.0-36.0); Mean Corpuscular Hemoglobin 27.7 pg (28.0-34.0); Mean Corpuscular Volume 90.3 fL (80-94); Mean Platelet Volume 9.2 fL (7.4-10.4); Monocytes % 8.9 %; Neutrophils # 9.14 10^3/uL (1.8-7.7); Neutrophils % 78.9 %; Nucleated Red Blood Cells % 0 %; Platelet Count 233 10^3/cmm (130-400); Red Blood Count 3.72 10^6/uL (4.1-5.3); Red Cell Distribution Width 14.9 % (12.1-15.1); White Blood Count 11.6 10^3/uL (4.0-10.0)
[2020-04-19 15:29] LABS: ABG PCO2 48.1 mmHg (35-45); ABG PH Result 7.41 (7.35-7.45); Arterial Blood Gas Hematocrit 31.3 % (42-52); Base Excess ABG 4.9 mmol/L (-2.0-2.0); Blood Gas Allen Test Pos; Blood Gas Operator Identificat MONRO; Blood Gas Sample Site Radial, left; Blood Gas Sample Type Arterial; Carboxyhemoglobin 1.2 %THgb (0.4-20.1); HCO3 ABG 30.4 mmol/L (22-26); HGB O2 Sat 96.3 % (95-100); Ionized Calcium Level - ABG 1.2 mmol/L (1.1-1.4); Methemoglobin 0.8 % (0.4-1.5); Oxygen Device NC; Oxygen Saturation ABG 98.3; PO2 ABG 93.7 mmHg (80.0-100.0); Potassium Level - ABG 4.7 mmol/L (3.5-5.0); Total Hemoglobin 10.2 g/dL (14-18)
[2020-04-19 15:40] LABS: Alanine Aminotransferase 9 U/L (0-41); Albumin Level 3.5 g/dL (3.5-5.2); Alkaline Phosphatase 85 IU/L (40-130); Anion Gap 13.9 (5-19); Aspartate Amino Transferase 12 U/L (0-40); Blood Urea Nitrogen 13 mg/dL (8-23); Calcium 8.9 mg/dL (8.5-10.5); Carbon Dioxide 27 mmol/L (22-29); Chloride 97 mmol/L (98-107); Globulin 3.5 g/dL (1.3-4.6); Glucose 140 mg/dL (65-115); Magnesium 2.1 mg/dL (1.7-2.3); Osmolality Calculated 274 mOsm/kg (285-295); Potassium 4.9 mmol/L (3.5-5.1); Sodium 133 mmol/L (136-145); Total Bilirubin 0.6 mg/dL (0.15-1.2)
[2020-04-19 15:41] LABS: Troponin(5th) Baseline 19 ng/L (0-15)
[2020-04-19 16:29] LABS: Add Urine Microscopic? YES; Bilirubin Urine Neg (NEGATIVE); Blood Urine 3+ (Negative); Glucose Urine UA Norm (Normal); Ketones Urine Negative (Negative); Leukocyte Esterase Urine Trace (Negative); Nitrate Urine Negative (Negative); Protein Urine Neg (Negative); Specific Gravity, Urine 1.015 (1.005-1.030); Urine Appearance Hazy (CLEAR); Urine Color Yellow (Yellow); Urobilinogen Urine 1 mg/dL (Negative); pH Urine 6 (5-7)
[2020-04-19 16:33] LABS: Add Urine Culture? Yes; Bacteria Urine 1+; Mucus Urine TRACE; RBC Urine 0-4 /hpf (0-2); Squamous Epithelial Cell Urine 0-4 (0-5)
--- NOTE | 2020-04-19 16:56 | P.HP_ITS ---
Providers/Chief Complaint Admitting Physician: Junior Allen MD Primary Care Provider: Sunday Rachel MD Chief Complaint: SOB History of Present Illness Robby Crowder is a 84 year old male with metastatic prostate cancer who presents with increasing shortness of breath. He was sent over from his oncologist. He reports his shortness of breath is slowly been worsening since stopping his antibiotics. The symptoms are similar to his previous ones when he was hospitalized and received a thoracentesis. He has not had any fevers. He has had some cough but no hemoptysis. He recently completed 3 weeks of IV antibiotics for presumed empyema. While in the hospital it appears he was not a candidate for VATS, and Bracken drain was thought not to likely be helpful. Ultimately cultures were negative for organism, and pathology negative for malignancy. Family reports his breathing is been difficult for quite a while. They have been considering hospice and have an appointment set up with hospice capacities for an evaluation and perhaps 8 to 10 days. No exposure to COVID, and no personal history of COVID. Review of Systems General: Reports: 10 or more systems reviewed and unremarkable except in HPI and below Const: Reports: daytime sleepiness; Denies: fever(s) or chills Eyes: Denies: change in vision ENMT: Denies: throat pain Card: Denies: chest pain Resp: Reports: dyspnea GI: Denies: abdominal pain : Denies: flank pain Musc: Denies: neck pain Skin/Breast: Denies: rash Neuro: Denies: headache(s) Psych: Denies: anxiety Endo: Denies: polyuria Ko/Lymph: Denies: easy bruising All/Imm: Denies: urticaria Medications/Allergies Home Medications Medication Instructions Recorded Confirmed Last Taken Type Movantik 25 mg PO PRN 03/16/20 04/19/20 Unknown History Prolia See Rx Instructions .ROUTE .COMPLEX 03/16/20 04/19/20 Unknown History Zoladex See Rx Instructions .ROUTE .COMPLEX 03/16/20 04/19/20 Unknown History albuterol sulfate 1 - 2 puff INHALATION Q4H PRN 03/16/20 04/19/20 04/19/20 History aspirin [Aspir-81] 81 mg PO DAILY 03/16/20 04/19/20 04/19/20 History bicalutamide 50 mg PO DAILY 03/16/20 04/19/20 04/19/20 History calcium polycarbophil [FiberCon] 625 mg PO PRN 03/16/20 04/19/20 Unknown History cholecalciferol (vitamin D3) 25 mcg PO DAILY 03/16/20 04/19/20 04/19/20 History [Vitamin D3] ergocalciferol (vitamin D2) 50,000 unit PO Q30D 03/16/20 04/19/20 04/02/20 History fentanyl 50 mcg TOPICAL Q72H 03/16/20 04/19/20 04/18/20 History gabapentin 100 mg PO BEDTIME 03/16/20 04/19/20 04/18/20 History guaifenesin [Mucinex] 1,200 mg PO Q12H 03/16/20 04/19/20 04/19/20 History olmesartan 20 mg PO DAILY 03/16/20 04/19/20 04/19/20 History oxycodone 10 mg PO Q4H PRN 03/16/20 04/19/20 04/19/20 History polyethylene glycol 3350 [Miralax] 17 g PO DAILY 03/16/20 04/19/20 04/19/20 History prednisone 10 mg PO DAILY 03/16/20 04/19/20 04/19/20 History tamsulosin 0.4 mg PO QAM 03/16/20 04/19/20 04/19/20 History diltiazem HCl 240 mg PO DAILY #30 cap 03/24/20 04/19/20 04/19/20 Rx furosemide [Lasix] 20 mg PO EVERY OTHER DAY #30 tab 03/24/20 04/19/20 Unknown Rx apixaban [Eliquis] 2.5 mg PO BID 04/19/20 04/19/20 04/19/20 History isosorbide mononitrate 15 mg PO BID 04/19/20 04/19/20 04/19/20 History piperacillin-tazobactam [Zosyn] 3.375 g IV Q8H 04/19/20 04/19/20 04/19/20 History Allergies Allergy/AdvReac Type Severity Reaction Status Date / Time No Known Allergies Allergy Verified 04/19/20 15:54 PFSH Acute PFSH: Medical History (Updated 04/19/20 @ 17:07 by Michael Duran, ) Atrial fibrillation COPD (chronic obstructive pulmonary disease) Degenerative arthritis Diastolic dysfunction Present on admission. Could possibly be in some degree of mild diastolic heart failure. Former smoker, stopped smoking in distant past Hyperlipidemia Hypertension Pleural effusion Concerning to be related to malignancy, parapneumonic or to some degree diastolic dysfunction. Prostate cancer metastatic to bone Sleep apnea T2DM (type 2 diabetes mellitus) Surgical History (Updated 04/19/20 @ 17:03 by Junior Allen MD) History of thoracentesis Social History Smoking and tobacco status: former smoker Quit status (tobacco): has quit using tobacco Year quit tobacco: 1999 PPD x 50 Years Alcohol intake: never Lives independently: Yes Household members: spouse Marital status: Current occupational status: retired History of recent travel: No Current gender identity: Male Supplemental [facility] Information: Family history reviewed and noncontributory. Vitals/I&O/Wt Last Vital Signs Temp 97.7 F 04/19/20 14:29 Pulse 110 H 04/19/20 14:29 Resp 26 H 04/19/20 14:29 BP 130/75 04/19/20 14:29 Pulse Ox 89 L 04/19/20 14:29 Weight last 48 hrs Weight 113.398 kg Physical Exam Narrative: EXAM NARRATIVE: General exam is a white male, with audible wheezing and no apparent distress. HEENT: Pupils equally round oropharynx clear Neck is supple no lymphadenopathy or thyromegaly Cardiovascular regular rate and rhythm, no murmur Lungs bilateral expiratory wheezes, no crackles, diminished breath sounds left lung Abdomen is soft with positive bowel sounds. No obvious organomegaly was deferred Extremities trace bilateral edema Skin no rash Neuro no focal deficits Data : 04/19/20 15:15 04/19/20 15:15 Micro: Microbiology 04/19/20 15:10 Blood Culture - Preliminary Blood SPECIMEN COLLECTED 04/19/20 15:15 Blood Culture - Preliminary Blood SPECIMEN COLLECTED Other data: EKG demonstrates junctional rhythm, intraventricular conduction delay, rate of 65 Chest x-ray demonstrated left pleural effusion. pH 7.41, PCO2 48, PO2 93. LFTs normal. White blood cell count 10-15, reds 0-4 and urine A&P Assessment and plan (1) Acute exacerbation of chronic obstructive airways disease: Prednisone 40 mg daily. He received 1 dose of IV steroids in the emergency department Scheduled nebs Initiation of long-acting beta agonist, inhaled steroid Levaquin IV currently. Status: Acute (2) Pleural effusion: I have discussed this case with his oncologist. He is followed up with pulmonary, Dr. Young, regarding his effusion. I am not for sure how much of a role is playing now but it appears from documentation that he is not a candidate for VATS, and Bracken drain was thought not to be useful. Thoracentesis was performed last hospital stay but certainly this would be a rather temporizing measure. He has completed 3 weeks of Zosyn IV. Right now I do not see any clinical evidence of sepsis. At this point I will have pulmonary consult on to see if there is any concern a thoracentesis needs done currently, as well as to possibly optimize his pulmonary treatment. Dr Young will evaluate the patient. A CT scan noncontrast will be obtained to see if there is any recurrence of effusion. Status: Acute Additional A&P Information Metastatic prostate cancer. Patient has been considering setting up hospice and has a visit arranged with hospice in approximately 8 to 10 days. I will consult them here so they can evaluate him. History of atrial fibrillation. Currently anticoagulated, and rate controlled Allow natural . Discussed with patient and . Certainly if there is time to consider all options he would like to be presented with these. Continue his anticoagulation of apixaban Hypertension Hyperlipidemia Multiple other medical problems as outlined in past medical history Attestations Medical Necessity Statement*: Will need greater than 2 midnight stay for evaluation and treatment of COPD exacerbation Time Spent in Patient Care: Greater than 35 minutes Coding Level of Care Code Acute [employer] Licensee for Panda Tenorio Diagnoses Acute exacerbation of chronic obstructive airways disease J44.1 Pleural effusion J90
[2020-04-19] MEDS: levofloxacin-dextrose 5 % 750 MG/150 ML PREMIX 100 MG IV (16:57)
--- NOTE | 2020-04-19 17:05 | ECG_ITS ---
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 Measurements Intervals [place] Rate: 66 P: -61 CT: 151 QRS: -43 QRSD: 117 T: 15 QT: 392 QTc: 412 Interpretive Statements Junction rhythm LEFT AXIS DEVIATION [QRS AXIS < -30] PATTERN CONSISTENT WITH PULMONARY DISEASE MODERATE INTRAVENTRICULAR CONDUCTION DELAY [110+ ms QRS DURATION] Compared to ECG 04/19/2020 14:43:41 Left-axis deviation now present Intraventricular conduction delay now present Atrial fibrillation no longer present Left anterior fascicular block no longer present ST (T wave) deviation no longer present Electronically Signed On 04-19-2020 18:03:18 CDT by Juarez Corley M.D. [id number]
--- NOTE | 2020-04-19 17:30 | CTR_ITS ---
PROCEDURE INFORMATION: Exam: CT Chest Without Contrast Exam date and time: 04/19/2020 11:01 PM Age: 84 years old Clinical indication: Cough and dyspnea; Prior surgery; Surgery type: Chest tubes, thoracentesis; Additional info: Follow up pleural effusion TECHNIQUE: Imaging protocol: Computed tomography of the chest without contrast. Radiation optimization: All CT scans at this facility use at least one of these dose optimization techniques: automated exposure control; mA and/or kV adjustment per patient size (includes targeted exams where dose is matched to clinical indication); or iterative reconstruction. COMPARISON: CT chest wo con [id number] 04/08/2020 4:02 PM RADIATION DOSE METRICS: Total DLP (mGy-cm): 1108.79 FINDINGS: Lungs: Left lung patchy airspace opacification reflecting atelectasis versus infiltrate. Pleural space: Minimal small residual left pleural effusion appears somewhat loculated. Heart: Cardiomegaly. Coronary artery atherosclerotic calcifications. Aorta: Unremarkable. No aortic aneurysm. Lymph nodes: Unremarkable. No enlarged lymph nodes. Gallbladder and bile ducts: Cholelithiasis. Kidneys and ureters: Left renal cysts, no follow-up advised. Right kidney staghorn type calculus measuring up to 18 mm without hydronephrosis. Stomach and bowel: Diverticulosis without diverticulitis. Bones/joints: Unremarkable. No acute fracture. Soft tissues: Unremarkable. CT/CT chest con [id number] IMPRESSION: 1. Left lung patchy airspace opacification reflecting atelectasis versus infiltrate. 2. Minimal small residual left pleural effusion appears somewhat loculated. 3. Cardiomegaly. 4. Coronary artery atherosclerotic calcifications. 5. Cholelithiasis. 6. Left renal cysts, no follow-up advised. 7. Right kidney staghorn type calculus measuring up to 18 mm without hydronephrosis. 8. Diverticulosis without diverticulitis. Radiation Dose CTDIVOL = (mGy): DLP = 1108.79 (mGy-cm)
[2020-04-19 17:51] LABS: Troponin 5 2HR 17.75 ng/L (0-15)
[2020-04-19 17:56] LABS: Troponin 5 2HR Delta -1.25 ABS# (0-10)
--- NOTE | 2020-04-19 18:38 | PC.NURSE ---
FENTANYL PATCH PATIENT HAS FENTANYL PATCH TO LEFT UPPER CHEST. PATIENT STATED HIS APPLIED A NEW PATCH THIS MORNING 04-19-20.
[2020-04-19] MEDS: D5-NS 0.45% + KCL 20 mEq 20 MEQ/1,000 ML BAG 100 MEQ IV (18:55)
[2020-04-19] MEDS: isosorbide mononitrate ER 30 mg Tablet 15 MG PO (18:55)
[2020-04-19] MEDS: apixaban 5 mg Tablet 2.5 MG PO (18:55)
--- NOTE | 2020-04-19 19:01 | PM.CONSULT ---
Providers/Reason For Consult Consulting Physican/Specialty*: Dr. 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 Recent admission and subsequent course of events: 03/16/20 pt admitted with left chest pain/SOB and A flutter with RVR. Patient's heart rate controlled with diltiazem and patient was started on Eliquis after explaining risks and benefits of anticoagulation. CTA chest during admission negative for PE but showed left sided well circumscribed pleural effusion with atelectasis +/- underlying consolidation. s/p 14 fr chest tube 03/17/2020 - 03/19/2020 - 700 cc straw colored fluid - wbc predominant, cytology negative for malignancy. Pt still had most fluid localized in the posterior aspect in a crescentric collection, which makes drainage of this fluid particularly challenging, even with CT guided drainage. As such, there is a higher risk of pneumothorax/other complications with attempting to drain this fluid. Given patient's advanced stage of cancer and age, surgical modalities such as VATS/Thoracotomy are high risk of morbidity.So tried conservative measures as patient otherwise appears to be clinically stable and improving, and was discharged with ~3 weeks of empiric iv Pip/tazo. Follow up CT 04/07/20: Decreased size of loculated left pleural fluid collection with some thickening of the surrounding rim with central low density, suggesting sequela from empyema or hemothorax. He followed up on 04/12 in pulmonary clinic and was clinically better and hence zosyn discontinued as it was given for 3 weeks and pt. does not have any fevers. Bedside ultrasound in clinic: Very minimal, not enough for tapping, pleural effusion exists in left posterior lung, Meds/Allergies Home Medications and Allergies Home Medications Medication Instructions Recorded Confirmed Last Taken Type Movantik 25 mg PO PRN 03/16/20 04/19/20 Unknown History Prolia See Rx Instructions .ROUTE .COMPLEX 03/16/20 04/19/20 Unknown History Zoladex See Rx Instructions .ROUTE .COMPLEX 03/16/20 04/19/20 Unknown History albuterol sulfate 1 - 2 puff INHALATION Q4H PRN 03/16/20 04/19/20 04/19/20 History aspirin [Aspir-81] 81 mg PO DAILY 03/16/20 04/19/20 04/19/20 History bicalutamide 50 mg PO DAILY 03/16/20 04/19/20 04/19/20 History calcium polycarbophil [FiberCon] 625 mg PO PRN 03/16/20 04/19/20 Unknown History cholecalciferol (vitamin D3) 25 mcg PO DAILY 03/16/20 04/19/20 04/19/20 History [Vitamin D3] ergocalciferol (vitamin D2) 50,000 unit PO Q30D 03/16/20 04/19/20 04/02/20 History fentanyl 50 mcg TOPICAL Q72H 03/16/20 04/19/20 04/18/20 History gabapentin 100 mg PO BEDTIME 03/16/20 04/19/20 04/18/20 History guaifenesin [Mucinex] 1,200 mg PO Q12H 03/16/20 04/19/20 04/19/20 History olmesartan 20 mg PO DAILY 03/16/20 04/19/20 04/19/20 History oxycodone 10 mg PO Q4H PRN 03/16/20 04/19/20 04/19/20 History polyethylene glycol 3350 [Miralax] 17 g PO DAILY 03/16/20 04/19/20 04/19/20 History prednisone 10 mg PO DAILY 03/16/20 04/19/20 04/19/20 History tamsulosin 0.4 mg PO QAM 03/16/20 04/19/20 04/19/20 History diltiazem HCl 240 mg PO DAILY #30 cap 03/24/20 04/19/20 04/19/20 Rx furosemide [Lasix] 20 mg PO EVERY OTHER DAY #30 tab 03/24/20 04/19/20 Unknown Rx apixaban [Eliquis] 2.5 mg PO BID 08/04/19/20 04/19/20 History isosorbide mononitrate 15 mg PO BID 04/19/20 04/19/20 04/19/20 History piperacillin-tazobactam [Zosyn] 3.375 g IV Q8H 04/19/20 04/19/20 04/19/20 History Allergies Allergy/AdvReac Type Severity Reaction Status Date / Time No Known Allergies Allergy Verified 04/19/20 15:54 Current Medications Current Medications Generic Name Dose Route Start Last Admin Trade Name Johan PRN Reason Stop Dose Admin Apixaban 2.5 mg 04/19/20 19:00 04/19/20 18:55 Eliquis PO 2.5 mg BID LAISHA Administration Potassium Chloride/Dextrose/Sod Cl 20 meq in 1,000 mls @ 100 mls/hr 04/19/20 18:18 04/19/20 18:55 D5-Ns 0.45% + Kcl 20 Meq IV 100 mls/hr .Q10H LAISHA Administration Isosorbide Mononitrate 15 mg 04/19/20 18:45 04/19/20 18:55 Imdur PO 15 mg BID LAISHA Administration PFSH Acute PFSH: Medical History (Updated 04/19/20 @ 17:07 by Michael Duran DO) Atrial fibrillation COPD (chronic obstructive pulmonary disease) Degenerative arthritis Diastolic dysfunction Present on admission. Could possibly be in some degree of mild diastolic heart failure. Former smoker, stopped smoking in distant past Hyperlipidemia Hypertension Pleural effusion Concerning to be related to malignancy, parapneumonic or to some degree diastolic dysfunction. Prostate cancer metastatic to bone Sleep apnea T2DM (type 2 diabetes mellitus) Surgical History (Updated 04/19/20 @ 17:03 by Junior Allen MD) History of thoracentesis Social History Smoking and tobacco status: former smoker Quit status (tobacco): has quit using tobacco Year quit tobacco: 1999 - PPD x 50 Years Alcohol intake: never Lives independently: Yes Household members: spouse Marital status: Current occupational status: retired History of recent travel: No Current gender identity: Male Vitals/I&O/Wt Last Vital Signs Temp 97.7 F 04/19/20 18:19 Pulse 62 04/19/20 18:19 Resp 22 H 04/19/20 18:19 BP 166/78 04/19/20 18:19 Pulse Ox 97 04/19/20 18:19 Weight last 48 hrs Weight 250 lb Physical Exam Narrative: EXAM NARRATIVE: General: alert, NAD HEENT: conj clear, EOMI, PERRL, mmm, Neck: supple, no meningismus Heme: no cervical LAP Pulmonary: end expiratory wheeze on both upper lobes posteriorly Cardiovascular: rrr, nl s1s2, no mrg Abdomen: soft, nt, nd, no r/g, bs+ Extremities: pulses +, 1+ pedal edema, no c/c : no CVA tenderness Skin: intact, no rash MSK: no back or neck pain Neurologic: grossly intact Data Micro: Micro: Microbiology 04/19/20 15:10 Blood Culture - Pr eliminary Blood SPECIMEN [facility] 04/19/20 15:15 Blood Culture - Pr eliminary Blood SPECIMEN [facility] Other Data: Other data: Other data: EKG demonstrates junctional rhythm, intraventricular conduction delay, rate of 65 Chest x-ray demonstrated Slowly regressing left lung infiltrate and effusion. Some degree remains. Right lung remains clear. No pulmonary edema. pH 7.41, PCO2 48, PO2 93. LFTs normal. White blood cell count 10-15, reds 0-4 and urine A&P Assessment and plan (1) Acute exacerbation of chronic obstructive airways disease: Status: Acute (2) Pleural effusion: Status: Acute (3) Sleep apnea: Status: Chronic Qualifiers: Sleep apnea type: unspecified type Qualified Code(s): G47.30 - Sleep apnea, unspecified (4) Prostate cancer metastatic to bone: Status: Acute #Shortness of breath likely due to Acute exacerbation on COPD - less likely effusion related. - Recommended Steroids, duoneb q 4 scheduled nebulizations - CXR - improving left pleural effusion - Last week while in Pulmonary clinic reported no recent exacerbation or symptoms related COPD - Just uses albuterol as needed at home as he is clinically stable - reported 40 years of 1-2 packs smoking history - quit 20 years ago - Pt does not remember having PFTs and plan was to get PFTs in few months to avoid covid exposure as much as possible - Need LABA/ICS (symbicort/advair) on discharge for daily use; Adding LAMA (spiriva/incruse) would increase risk of urinary retention - Recommened BIPAP 10/ at night and titrate with [employer] TV 380- 400- in view of MORGAN and COPD # Left loculated pleural effusion - Improving in Chest x ray since last admission CT chest: 03/16/20: Partially loculated pleural effusion left side; S/p left side throracentesis 03/17 - 03/19- 700 cc - CXR still has effusion likely tube in one loculation. Labs suggest fluid likely infectious - but cytology negative for malignancy 03/19: Bedside ultrasound - most fluid localized in the posterior aspect in a crescentric collection, even with CT guided drainage. As such, there is a higher risk of pneumothorax/other complications. Given patient's advanced stage of cancer and age, surgical modalities such as VATS/Thoracotomy are high risk of morbidity. CT surgery recommendations appreciated. - Discharged home on iv zosyn x 3 weeks - Follow up CT 04/07/20: Decreased size of loculated left pleural fluid collection with some thickening of the surrounding rim with central low density, suggesting sequela from empyema or hemothorax. -Completed 3 weeks of empiric iv Pip/tazo -Bedside ultrasound in clinic 04/12/2020: Very minimal, not enough for tapping, pleural effusion exists in left posterior lung -Bedside ultrasound in ED 04/19/2020: Still very minimal and not enoughf or tapping in left pleural space # MORGAN Pt reported being tested previosuly but does not remember when and does not use CPAP any more Not interested in pursuing for further sleep testing Overall prognosis: guarded Code: Contemplating Hospice Clinical condition and plan of care explained in detail to the patient. He verbalized understanding and agreed with the plan of care. Recommendations conveyed to Dr. Allen (Hospitalist ) Consult Attestations Medical Necessity Statement: COPD exacerbation Critical Care Time: Critical Care Time (min): 45 Coding Level of Care Code New Pt Acute Director [employer] for [employer]g Fwd Patient Type New Medical Decision Making Moderate Complexity Diagnoses Acute exacerbation of chronic obstructive airways disease J44.1 Pleural effusion J90 Sleep apnea G47.30 Sleep apnea type: unspecified type Prostate cancer metastatic to bone C61; C79.51 Time Spent (min) 45
--- NOTE | 2020-04-19 19:26 | PC.NURSE ---
REPORT TAKEN FROM ANDRZEJ PIERSON IN E.R. PT ARRIVED ON FLOOR AT APPROXIMATELY 1800. PT IS IN BED RESTING AT THIS TIME.
[2020-04-19] MEDS: ipratropium-albuterol 3 mL Neb INHALATION (20:13)
--- NOTE | 2020-04-19 21:05 | ECG_ITS ---
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 Measurements Intervals [place] Rate: 67 P: 267 GA: 166 QRS: -54 QRSD: 129 T: 17 QT: 401 QTc: 425 Interpretive Statements SINUS RHYTHM MARKED LEFT AXIS DEVIATION [QRS AXIS < -30] MODERATE INTRAVENTRICULAR CONDUCTION DELAY [110+ ms QRS DURATION] Compared to ECG 04/19/2020 17:12:51 No significant changes Electronically Signed On 04-20-2020 20:26:26 CDT by Allison Suarez M.D. [id number]
[2020-04-19 22:11] LABS: Troponin 5 6HR 13.97 ng/L (0-15)
[2020-04-19 22:14] LABS: Troponin 5 6HR Delta -5.03 ng/L (0-12)
[2020-04-19] MEDS: gabapentin 100 mg Capsule PO (22:23)
[2020-04-20] VITALS (18 sets, daily range): BP systolic 110–152; BP diastolic 56–70; PULSE 66–78; RESP 16–22; TEMP 36.3–36.9; O2SAT 92–100
[2020-04-20] MEDS: ipratropium-albuterol 3 mL Neb INHALATION ×6 (00:10→19:54)
[2020-04-20 04:59] LABS: Basophils % 0.1 %; Hematocrit 32.4 % (42.0-52.0); Hemoglobin 9.9 g/dL (11.7-16.6); Lymphocytes # 0.8 10^3/uL (0.8-4.8); Lymphocytes % 10.1 %; Mean Corpuscular HGB Conc 30.6 g/dL (30.0-36.0); Mean Corpuscular Hemoglobin 27.5 pg (28.0-34.0); Mean Platelet Volume 9.3 fL (7.4-10.4); Monocytes # 0.1 10^3/uL (0.2-0.9); Monocytes % 1.4 %; Neutrophils # 6.48 10^3/uL (1.8-7.7); Neutrophils % 87.6 %; Nucleated Red Blood Cells % 0 %; Platelet Count 201 10^3/cmm (130-400); Red Cell Distribution Width 14.5 % (12.1-15.1); White Blood Count 7.4 10^3/uL (4.0-10.0)
[2020-04-20 05:31] LABS: Alanine Aminotransferase 9 U/L (0-41); Albumin Level 3.4 g/dL (3.5-5.2); Alkaline Phosphatase 76 IU/L (40-130); Aspartate Amino Transferase 12 U/L (0-40); Blood Urea Nitrogen 12 mg/dL (8-23); Calcium 8.4 mg/dL (8.5-10.5); Carbon Dioxide 27 mmol/L (22-29); Chloride 98 mmol/L (98-107); Globulin 3.6 g/dL (1.3-4.6); Glucose 210 mg/dL (65-115); Osmolality Calculated 282 mOsm/kg (285-295); Sodium 135 mmol/L (136-145); Total Bilirubin 0.4 mg/dL (0.15-1.2)
[2020-04-20 05:34] LABS: Anion Gap 14.9 (5-19); Potassium 4.9 mmol/L (3.5-5.1)
--- NOTE | 2020-04-20 06:23 | PC.NURSE ---
PATIENT PULLED IV OUT AT 0430. WHEN APPROACHED ABOUT RESTARTING IT, THE PATIENT WAS HESITANT. THIS NURSE LOOKED FOR A POTENTIAL NEW SITE, WITH NO LUCK. WHEN APPROACHED AGAIN AT 0620, THE PATIENT REFUSED AND STATED, I'M TIRED AND JUST WANT SLEEP.
[2020-04-20] MEDS: tamsulosin 0.4 mg Capsule PO (10:09)
[2020-04-20] MEDS: aspirin 81 mg EC Tablet PO (10:09)
[2020-04-20] MEDS: isosorbide mononitrate ER 30 mg Tablet 15 MG PO ×2 (10:09→17:41)
[2020-04-20] MEDS: apixaban 5 mg Tablet 2.5 MG PO ×2 (10:10→17:40)
[2020-04-20] MEDS: dilTIAZem ER (24HR) 240 mg Capsule PO (10:10)
[2020-04-20] MEDS: losartan 50 mg Tablet PO (10:11)
[2020-04-20] MEDS: predniSONE 20 mg Tablet 40 MG PO (10:13)
[2020-04-20] MEDS: polyethylene glycol 3350 Pkt 17 gm PO (10:14)
--- NOTE | 2020-04-20 11:02 | PC.NURSE ---
Kendra rounding Per and SS, patient has hospice [facility] at home and will dc with them possibly on 04/21/20
--- NOTE | 2020-04-20 12:33 | P.PN_ITS ---
Subjective Subjective: Interval history: Robby reports he is breathing is a little bit better. No chest pain. Medications: Reviewed: Yes Vitals/I&O/Wt Last Vital Signs Temp 97.3 F L 04/20/20 11:13 Pulse 74 04/20/20 11:48 Resp 20 H 04/20/20 11:48 BP 122/68 04/20/20 11:13 Pulse Ox 94 04/20/20 11:48 04/19/20 04/20/20 04/20/20 22:59 06:59 14:59 Intake Total 958.333 / 958.333 Balance 958.333 / 958.333 Weight last 48 hrs Weight 113.398 kg Physical Exam Narrative: EXAM NARRATIVE: General exam no apparent distress Cardiovascular regular rate and rhythm, no murmur Lungs bilateral improved aeration. Diminished breath sounds left side. Abdomen is soft with positive bowel sounds. No obvious organomegaly Extremities trace bilateral edema Data : 04/20/20 04:40 04/20/20 04:40 Micro: Microbiology 04/19/20 15:10 Blood Culture - Preliminary Blood SPECIMEN COLLECTED 04/19/20 15:15 Blood Culture - Preliminary Blood SPECIMEN COLLECTED A&P Assessment and plan (1) Acute exacerbation of chronic obstructive airways disease: Continue prednisone Scheduled nebs Continue Advair Continue Levaquin IV Overall improving. Possible discharge tomorrow. Status: Acute (2) Pleural effusion: I have discussed this case with his oncologist. He is followed up with pulmonary, Dr. Young, regarding his effusion. I am not for sure how much of a role is playing now but it appears from documentation that he is not a candidate for VATS, and Chelsea drain was thought not to be useful. Thoracentesis was performed last hospital stay but certainly this would be a rather temporizing measure. He has completed 3 weeks of Zosyn IV. Right now I do not see any clinical evidence of sepsis. Effusion is still present but no worse. No plans on thoracentesis currently. Status: Acute Additional A&P Information Metastatic prostate cancer. Patient has been considering setting up hospice and has a visit arranged with hospice in approximately 8 to 10 days. Hospice consult will be obtained History of atrial fibrillation. Currently anticoagulated, and rate controlled Hypertension Hyperlipidemia Allow natural . Discussed with patient and . Certainly if there is time to consider all options he would like to be presented with these. Continue his anticoagulation of apixaban Attestations Medical Necessity Statement*: Needs continued hospitalization for pulmonary treatments, close monitoring with his COPD exacerbation. Coding Level of Care Code Acute Program Technician for Panda Tenorio Diagnoses Acute exacerbation of chronic obstructive airways disease J44.1 Pleural effusion J90
--- NOTE | 2020-04-20 16:12 | PC.RESP ---
SMOKING CESSATION INFORMATION SENT TO PATIENT.
[2020-04-20] MEDS: levofloxacin-dextrose 5 % 750 MG/150 ML PREMIX 100 MG IV (17:40)
[2020-04-20] MEDS: lanolin oint 7 gm 1 APPLIC TOPICAL (17:45)
--- NOTE | 2020-04-20 18:15 | PC.NURSE ---
pt resting in bed at today, got up several times to use the bathroom with standby assist and used his cane. no changes at this time.
[2020-04-20] MEDS: gabapentin 100 mg Capsule PO (22:14)
[2020-04-21] VITALS (13 sets, daily range): BP systolic 124–147; BP diastolic 68–82; PULSE 65–91; RESP 17–22; TEMP 36.3–37; O2SAT 88–97
[2020-04-21] MEDS: ipratropium-albuterol 3 mL Neb INHALATION ×3 (00:31→09:11)
[2020-04-21] MEDS: tamsulosin 0.4 mg Capsule PO (06:31)
[2020-04-21] MEDS: apixaban 5 mg Tablet 2.5 MG PO (09:21)
[2020-04-21] MEDS: aspirin 81 mg EC Tablet PO (09:23)
[2020-04-21] MEDS: dilTIAZem ER (24HR) 240 mg Capsule PO (09:24)
[2020-04-21] MEDS: FUROsemide 20 mg Tablet PO (09:25)
[2020-04-21] MEDS: isosorbide mononitrate ER 30 mg Tablet 15 MG PO (09:26)
[2020-04-21] MEDS: losartan 50 mg Tablet PO (09:27)
[2020-04-21] MEDS: polyethylene glycol 3350 Pkt 17 gm PO (09:28)
[2020-04-21] MEDS: predniSONE 20 mg Tablet 40 MG PO (09:29)
--- NOTE | 2020-04-21 12:15 | P.DS_ITS ---
Discharge Providers Date of Admission: 04/19/20 16:05 Date of Discharge: April 21, 2020 Attending Provider at Admission: Junior Allen MD Attending Provider at Discharge: Junior Allen MD Primary Care Provider: Sunday Rachel MD Diagnoses at Discharge Discharge Diagnosis (1) Acute exacerbation of chronic obstructive airways disease: Status: Acute Problem details: Improved. (2) Pleural effusion: Status: Acute Problem details: No evidence of worsening this hospital stay Reason for Visit Reason for Visit: SOB Hospital Course Hospital Course: Robby is an 84-year-old white male who presented to the hospital with increasing shortness of breath and wheezing. He had recently been in the hospital for prolonged course secondary to a pleural effusion, thought to be possibly empyema. He received 3 weeks of IV antibiotics and completed his therapy prior to his readmission here. On readmission the pleural effusion was again evaluated and not thought to be any worse. He was placed on oral prednisone, frequent breathing treatments, and an oral antibiotic. With the treatment for COPD exacerbation he improved. He was able to be discharged on April 21. Home O2 evaluation was ordered to be performed prior to discharge. Physical Exam Narrative: EXAM NARRATIVE: General exam no apparent distress Cardiovascular regular rate and rhythm Lungs clear with no wheezing. Diminished breath sounds is noted bilaterally left greater than right Abdomen is soft with positive bowel sounds Extremities trace edema Discharge Data Data Completed and Pending: Completed Studies During Hospitalization Category Date Time Status CT chest wo con 7 1250 Routine Cat Scan 04/19/20 17:30 Completed XR chest 1V karen ble [id number] Stat Exams 04/19/20 15:04 Completed Pending at discharge Category Date Time Status Arterial Blood Ga s Full Stat Lab 04/19/20 15:16 Results Blood Culture Sta t Lab 04/19/20 15:10 Results Sputum Culture an d Gram Stain Stat Lab 04/19/20 15:53 Uncollected Urine Culture Sta t Lab 04/19/20 16:01 Results Vitals: Last Vital Signs Temp 98.2 F 04/21/20 11:39 Pulse 91 04/21/20 11:39 Resp 18 04/21/20 11:39 BP 132/74 04/21/20 11:39 Pulse Ox 92 04/21/20 11:39 Discharge Plan Discharge Patient Disposition: Home Health Service Condition: Stable Prescriptions: New fluticasone propion-salmeterol [Advair Diskus] 500-50 mcg/dose Blister With Device 1 puff inhalation BID.RESPIRATORY Qty: 1 RF: 0 levofloxacin [Levaquin] 750 mg tablet 750 mg PO DAILY 7 Days Qty: 7 RF: 0 prednisone 20 mg Tablet 40 mg PO DAILY Qty: 6 RF: 0 ipratropium-albuterol 0.5 mg-3 mg(2.5 mg base)/3 mL solution for nebulization 3 ml INHALATION Q6H PRN (Reason: shortness of breath or wheezing) Qty: 180 RF: 0 Continued fentanyl 50 mcg/hr patch 72 hour 50 mcg topical Q72H RF: 0 bicalutamide 50 mg tablet 50 mg PO DAILY RF: 0 prednisone 10 mg tablet 10 mg PO DAILY RF: 0 polyethylene glycol 3350 [Miralax] 17 gram Powder In Packet 17 g PO DAILY RF: 0 aspirin [Aspir-81] 81 mg Tablet,Delayed Release (Dr/Ec) 81 mg PO DAILY RF: 0 tamsulosin 0.4 mg capsule 0.4 mg PO QAM RF: 0 calcium polycarbophil [FiberCon] 625 mg Tablet 625 mg PO PRN RF: 0 gabapentin 100 mg capsule 100 mg PO BEDTIME RF: 0 ergocalciferol (vitamin D2) 1,250 mcg (50,000 unit) capsule 50,000 unit PO Q30D RF: 0 albuterol sulfate 90 mcg/actuation HFA aerosol inhaler 1 - 2 puff INHALATION Q4H PRN (Reason: Shortness Of Breath) RF: 0 cholecalciferol (vitamin D3) [Vitamin D3] 25 mcg (1,000 unit) Capsule 25 mcg PO DAILY RF: 0 olmesartan 20 mg tablet 20 mg PO DAILY RF: 0 oxycodone 10 mg tablet 10 mg PO Q4H PRN (Reason: Pain) RF: 0 guaifenesin [Mucinex] 600 mg tablet extended release 12hr 1,200 mg PO Q12H RF: 0 Movantik 25 mg Tablet 25 mg PO PRN RF: 0 Prolia See Rx Instructions .ROUTE .COMPLEX RF: 0 Zoladex See Rx Instructions .ROUTE .COMPLEX RF: 0 diltiazem HCl 240 mg capsule,extended release 24hr 240 mg PO DAILY Qty: 30 RF: 0 furosemide [Lasix] 20 mg tablet 20 mg PO EVERY OTHER DAY Qty: 30 RF: 0 isosorbide mononitrate 30 mg tablet extended release 24 hr 15 mg PO BID RF: 0 Eliquis 5 mg tablet 2.5 mg PO BID RF: 0 Discontinued Zosyn 3.375 gram Recon Soln 3.375 g IV Q8H RF: 0 Discharge Orders: Discharge Order (Routine); Ordered 04/21/20 Ordered By: Junior Allen Referrals: Sunday Rachel MD [Primary Care Provider] - 4-7 days Discharge Diet: Cardiac and Diabetic Discharge Activity: Increase activity as tolerated Activity Restrictions/Additional Instructions: Home oxygen evaluation prior to discharge Take all medicine as prescribed Follow-up with primary care provider 3 to 5 days Follow-up with oncology Resume home health Discharge Attestations Time Spent in Discharge Care*: greater than 30 min Quality Metrics Clinical Quality Measures During this hospital stay, did patient experience: None Coding Level of Care Code Acute Patient Admitting Clerk for Panda Fwmary Diagnoses Acute exacerbation of chronic obstructive airways disease J44.1 Pleural effusion J90
[2020-04-21] MEDS: oxyCODONE 5 mg IR Tab/Cap 10 MG PO (13:01)
== END 2020-04-21 15:45 | disposition home health service (06) | DRG 191 ==
LOC: ER 16:01 → MEDSURG 16:46
PROVIDERS: Family Medicine; Admitting Provider Internal Medicine; PCP Family Medicine; Visit Provider Internal Medicine
DX: J44.1 Chronic obstructive pulmonary disease with (acute) exacerbation (principal); J90 Pleural effusion, not elsewhere classified; C79.51 Secondary malignant neoplasm of bone; C61 Malignant neoplasm of prostate; Z79.82 Long term (current) use of aspirin; Z66 Do not resuscitate; Z79.01 Long term (current) use of anticoagulants; E78.5 Hyperlipidemia, unspecified; Z87.891 Personal history of nicotine dependence; E11.9 Type 2 diabetes mellitus without complications; G47.30 Sleep apnea, unspecified; I10 Essential (primary) hypertension; M19.90 Unspecified osteoarthritis, unspecified site; I48.91 Unspecified atrial fibrillation
CPT/HCPCS: 12345; 36415; 36600; 71045; 71250; 80051; 80053; 81001; 82810; 83735; 83986; 84153; 84484; 85025; 87040; 87086; 93005; 94640; 94660; 99214; 99283; J1956; J2930; J7512; J8999